=== PATIENT | female | born 1965 | race Caucasian/White ===

== ENCOUNTER 2024-02-04 08:40 | Outpatient (OUT) | payer OTHER, SELFPAY ==
--- NOTE | 2024-02-04 | XR_ITS ---
The [address] [address] Patient Name: BORA GARCÍA MRN: [id number] date: 1965 Sex: F Assigned Patient Location: LAB Current Patient Location: LAB Accession/Order Number: [id number] Exam Date: 02/04/2024 09:20 Report Date: 02/04/2024 17:38 At the request of: NON-STAFF PHYSICIAN Procedure: XR knee standing BI EXAMINATION: XR knee standing BI HISTORY: M25.561, M25.562 COMPARISON: No relevant comparison available. FINDINGS: RIGHT FINDINGS: BONES: Normal. No significant arthropathy or acute abnormality. SOFT TISSUES: Negative. No visible soft tissue swelling. OTHER: Negative. LEFT FINDINGS: BONES: Normal. No significant arthropathy or acute abnormality. SOFT TISSUES: Negative. No visible soft tissue swelling. OTHER: Negative. XR/XR knee standing BI IMPRESSION: RIGHT CONCLUSION: Normal LEFT CONCLUSION: Normal Electronically authenticated by: RIA BLACKMON Date: 02/04/2024 17:38
[2024-02-04 10:33] LABS: Microalbum Creatinine Ratio Ur 28.9 mg/g (0.0-29.9); Microalbumin Urine Random 1.8 mg/dL (<=30.0)
[2024-02-04 13:06] LABS: Alanine Aminotransferase 38 U/L (14-59); Albumin Globulin Ratio 0.8; Albumin Level 3.8 g/dL (3.4-5.0); Alkaline Phosphatase 118 U/L (46-116); Anion Gap 13.7; Aspartate Amino Transferase 20 U/L (15-37); BUN Creatinine Ratio 16.7; Bilirubin Total 0.4 mg/dL (0.2-1.0); Calcium 9.9 mg/dL (8.5-10.1); Carbon Dioxide 27.5 mmol/L (21.0-32.0); Chloride 102 mmol/L (98-107); Cholesterol 274 mg/dL (<=200); Estimated GFR (African America >60 (>=60); Estimated GFR (Non-African Ame >60 (>=60); Globulin 4.7 g/dL; Glucose 144 mg/dL (74-106); HDL Cholesterol 39 mg/dL (40-60); Potassium 4.2 mmol/L (3.5-5.1); Sodium 139 mmol/L (136-145); TSH W/ REFLEX FT4 2.016 uIU/mL (0.358-3.740); Total Protein 8.5 g/dL (6.4-8.2); Triglycerides 338 mg/dL (<=150); VLDL CHOLESTEROL 67.6 mg/dL
== END 2024-02-04 08:41 | disposition home or self-care (01) ==
LOC: LAB 08:43
DX: M25.561 Pain in right knee (principal); E11.65 Type 2 diabetes mellitus with hyperglycemia; M25.562 Pain in left knee
CPT/HCPCS: 36415; 73565; 80053; 80061; 82043; 82570; 84443

== ENCOUNTER 2024-06-04 09:45 | Outpatient (OUT) | payer OTHER, SELFPAY ==
--- OUTSIDE RECORDS SUMMARY | 2024-06-04 09:49 | XMS_ITS | CCD ---
Author Organization [facility] Care Team Providers Care Stitcher Operator Name Role Phone PHYSICIAN, DEFAULT Unavailable Unavailable PHYSICIAN, DEFAULT Unavailable Unavailable [place], EHAB A Unavailable Unavailable [place], EHAB A Unavailable Unavailable BJ MARKS Unavailable Unavailable LINDA WOOD Unavailable Unavailable Hanh Menjivar Unavailable Cyndi Haas Unavailable MISC, DR MEYER Attending Unavailable MISC, DR MEYER Consulting Unavailable MISC, DR MEYER Primary Care Unavailable MISC, DR MEYER Admitting Unavailable ZIEBER, DR EVELYN Adams Consulting Unavailable MISC, DR MEYER Admitting Unavailable MISC, DR MEYER Attending Unavailable MISC, DR MEYER Consulting Unavailable MISC, DR MEYER Primary Care Unavailable HAL REYES Admitting Unavailable AMY, HAL Attending Unavailable AMY, HAL Consulting Unavailable NOEMY ., AKHIL Admitting Unavailable NEYMAR, DR RIA Phillips Consulting Unavailable NOEMY ., AKHIL Attending Unavailable MISC, DR MEYER Primary Care Unavailable IRENE .OPAL Consulting Unavailable PRINCE Haas Attending Provider [phone] Baltazar Askew Unavailable MD Edd Day Attending Provider SATHISH Wood Primary Care Provide r Cyndi Haas Attending Unavailable Cyndi Haas Admitting Unavailable Linda Wood Primary Care Unavailab Edd Marquez Attending UnavailEdd Nice Admitting UnavailFRANCINE Arreola Attending Unavailable Allergies Allergy Classification Reported Allergen(s) Allergy Type Date of Onset Reaction(s) Facility (2 sources) raNITIdine Drug Allergy 4 [facility] (1 source) No Known Allergies; Translations: [No Known Allergies] Propensity to adverse reactions (disorder) [facility] (3 sources) raNITIdine; Translations: [ranitidine] Drug Allergy 8 [facility] (1 source) raNITIdine; Translations: [RANITIDINE HCL] Drug Allergy 2 [facility] Medications Current Medications Medication Drug Class(es) Dates Sig (Normalized) Sig (Original) [id number] 200 actuat albuterol 0.09 mg/actuat metered dose inhaler (10 sources) beta2-Adrenergic Agonist Start: 09-27-2023 take 1 puff(s) by inhalation four times daily Albuterol Sulfate Active 2 PUFF INHALATION Four times daily September 27, 2023 12:00am Start: 07-09-2023 take 2 puff(s) by in halation four times daily as needed Albuterol Sulfate HFA 108 (90 Base) MCG/ACT 2 puffs Inhalation 4 times a day prn Jun, Active Start: 07-09-2023 take 2 puff(s) by in halation four times daily as needed Albuterol Sulfate HFA 108 (90 Base) MCG/ACT 2 puffs Inhalation 4 times a day prn Jun, Active Albuterol Active aspirin 81 mg chewable tablet (9 sources) Platelet Aggregation Inhibitor, Nonsteroidal Anti-inflammatory Drug Start: 10-24-2017 take 81 mg by mouth once daily Aspirin Active 81 MG PO Daily October 24, 2017 12:00am atorvastatin 20 mg oral tablet (9 sources) HMG-CoA Reductase Inhibitor Start: 10-24-2017 take 20 mg by mouth once daily Atorvastatin Active 20 MG PO Daily October 24, 2017 12:00am carvedilol 25 mg oral tablet (9 sources) alpha-Adrenergic Sonia, beta-Adrenergic Sonia Start: 10-24-2017 take 25 mg by mouth twice daily Carvedilol Active 25 MG PO Twice daily October 24, 2017 12:00am Carvedilol Activ e dexamethasone 4 mg oral tablet (1 source) Corticosteroid Start: 11-19-2021 take 1 tablet by mouth every twenty-four hours Dexamethasone 4 MG 1 tablet Orally Once a day for 5 day(s) Oct, Active 0.5 ml dulaglutide 1.5 mg/ml auto-injector (6 sources) GLP-1 Receptor Agonist Start: 09-27-2023 Dulaglutide (Trulicity) 0.75 mg/0.5 mL pen injector Active 0.75 MG SUBCUT every week September 27, 2023 12:00am Trulicity 0.75 M G/0.5ML as directed Subcutaneous Active empagliflozin 25 mg oral tablet (8 sources) Sodium-Glucose Cotransporter 2 Inhibitor Start: 09-27-2023 take 1 tablet by mouth once daily Empagliflozin (Jardiance) 25 mg tablet Active 25 MG PO Daily September 27, 2023 12:00am Jardiance Active gabapentin 600 mg oral tablet (8 sources) Anti-epileptic Agent Start: 09-27-2023 take 600 mg by mouth three times daily Gabapentin Active 600 MG PO Three times daily September 27, 2023 12:00am Gabapentin Activ e 24 hr isosorbide mononitrate 30 mg extended release oral tablet (1 source) Nitrate Vasodilator Start: 09-27-2023 take 30 mg by mouth once daily Isosorbide Mononitrate Active 30 MG PO Daily September 27, 2023 12:00am Isosorbide Dinitrate (7 sources) Nitrate Vasodilator Isosorbide Dinitrate Active metFORMIN hydrochloride 1000 mg oral tablet (8 sources) Biguanide Start: 09-27-2023 take 1000 mg by mouth once daily Metformin Active 1000 MG PO Daily September 27, 2023 12:00am metFORMIN HCl Ac tive montelukast 10 mg oral tablet (8 sources) Leukotriene Receptor Antagonist Start: 09-27-2023 take 10 mg by mouth once daily Montelukast Active 10 MG PO Daily September 27, 2023 12:00am take 1 tablet by herbie th every twenty-four hours Singulair 10 MG 1 tablet Orally Once a day Active Singulair Active nitrofurantoin, macrocrystals 25 mg / nitrofurantoin, monohydrate 75 mg oral capsule (3 sources) Nitrofuran Antibacterial Start: 03-30-2023 take 1 capsule by mouth every twelve hours Macrobid 100 MG 1 cap(s) Orally bid for 5 day(s) Mar, Active pantoprazole 40 mg delayed release oral tablet (9 sources) Proton Pump Inhibitor Start: 10-24-2017 take 40 mg by mouth twice daily Pantoprazole Active 40 MG PO Twice daily October 24, 2017 12:00am PARoxetine hydrochloride 40 mg oral tablet (1 source) Serotonin Reuptake Inhibitor Start: 09-27-2023 take 40 mg by mouth once daily Paroxetine Hcl Active 40 MG PO Daily September 27, 2023 12:00am phenazopyridine hydrochloride 200 mg oral tablet (3 sources) Start: 03-30-2023 take 1 tablet by mouth every eight hours Pyridium 200 MG 1 tablet after meals Orally Three times a day for 2 day(s) Mar, Active microencapsulated potassium chloride 20 meq extended release oral tablet (9 sources) Start: 10-24-2017 take 20 mEq by mouth once daily Potassium Chloride Active 20 MEQ PO Daily October 24, 2017 12:00am predniSONE 20 mg oral tablet (3 sources) Start: 07-09-2023 take 1 tablet by mouth every twelve hours predniSONE 20 MG 1 tablet Orally bid for 5 day(s) Jun, Active Start: 01-03-2018 End: 09-27-2023 take 60 mg by mouth once daily at mealtime Prednisone Discontinued 60 MG PO Daily 07 02January 02, 2018 11:00pm September 27, 2023 7:07am administer with food or milk Spiriva Respimat (7 sources) Spiriva Respimat Active 60 actuat tiotropium 0.38603 mg/actuat inhalation spray (1 source) Anticholinergic Start: take 1 puff(s) by inhalation once daily Tiotropium [place] (Spiriva Respimat) 1.25 mcg/actuation Mist Active 2 PUFF INHALATION Daily September 27, 2023 12:00am valACYclovir 1000 mg oral tablet (1 source) Herpesvirus Nucleoside Analog DNA Polymerase Inhibitor, Herpes Simplex Virus Nucleoside Analog DNA Polymerase Inhibitor, Herpes Zoster Virus Nucleoside Analog DNA Polymerase Inhibitor Start: take 1 tablet by mouth every eight hours valACYclovir HCl 1 GM 1 tablet Orally tid for 7 days Jun, Active valsartan 160 mg oral tablet (8 sources) Angiotensin 2 Receptor Sonia Start: take 160 mg by mouth once daily Valsartan Active 160 MG PO Daily September 27, 2023 12:00am Valsartan Active Completed/Discontinued Medications Medication Drug Class(es) Dates Sig (Normalized) Sig (Original) azithromycin 250 mg oral tablet (2 sources) Macrolide Antimicrobial Start: 01-03-2018 End: 09-27-2023 take 2 tablets by mouth once daily, then take 1 tablet by mouth once daily Azithromycin (Zithromax) 250 mg tablet Discontinued 250 MG PO Daily January 02, 2018 11:00pm September 27, 2023 7:06am ZPAK-2 tabs day 1, the 1 tab daily for 4 days benzonatate 100 mg oral capsule (5 sources) Non-narcotic Antitussive Start: 06-16-2017 take 1 capsule by mouth three times daily Tessalon Perles 100 mg 1 capsule Orally Three times a day for 1 month May, Not-Taking dicyclomine hydrochloride 20 mg oral tablet (2 sources) Anticholinergic Start: 01-03-2018 End: 09-27-2023 take 20 mg by mouth four times daily Dicyclomine Discontinued 20 MG PO Four times daily January 02, 2018 11:00pm September 27, 2023 7:07am DULoxetine 60 mg delayed release oral capsule (5 sources) Serotonin and Norepinephrine Reuptake Inhibitor take 1 capsule by mouth every twenty-four hours DULoxetine HCl 60 MG 1 capsule Orally Once a day Not-Taking furosemide 40 mg oral tablet (7 sources) Loop Diuretic Start: 10-24-2017 End: 09-27-2023 take 40 mg by mouth once daily Furosemide Discontinued 40 MG PO Daily October 24, 2017 12:00am September 27, 2023 7:07am Ketorolac (7 sources) Nonsteroidal Anti-inflammatory Drug, Cyclooxygenase Inhibitor Start: 11-19-2021 Toradol per 15 mg Oct, 30 mg losartan potassium 25 mg oral tablet (9 sources) Angiotensin 2 Receptor Sonia Start: 10-24-2017 End: 09-27-2023 take 25 mg by mouth once daily Losartan Discontinued 25 MG PO Daily October 24, 2017 12:00am September 27, 2023 7:07am 24 hr metoprolol succinate 50 mg extended release oral tablet (7 sources) beta-Adrenergic Sonia Start: 10-24-2017 End: 01-03-2018 take 1.5 tablets by mouth once daily Metoprolol Succinate Discontinued 1.5 TAB PO Daily October 24, 2017 12:00am January 03, 2018 5:49pm Metoprolol Tartr ate 50 MG 1 1/2 tablet with food Orally Twice a day Not-Taking OLANZapine 5 mg oral tablet (2 sources) Atypical Antipsychotic Start: 01-03-2018 End: 09-27-2023 take 5 mg by mouth once daily Olanzapine Discontinued 5 MG PO Daily January 02, 2018 11:00pm September 27, 2023 7:07am Triamcinolone (14 sources) Corticosteroid Start: 07-13-2017 Kenalog -40 mg Jun, 40 mg Problems Active Problems Problem Classification Problem Date Documented Da te Episodic/Chronic Abdominal hernia (7 sources) Hiatal hernia; Translations: [Diaphragmatic hernia without obstruction or gangrene] Episodic Abdominal pain (6 sources) Unspecified abdominal pain; Translations: [Right lower quadrant pain] Onset: 2022 Episodic Chronic obstructive pulmonary disease and bronchiectasis (4 sources) Acute exacerbation of chronic obstructive airways disease; Translations: [Chronic bronchitis] 01-03-2018 Chronic Chronic obstructive pulmonary disease and bronchiectasis (1 source) Bronchitis, not specified as acute or chronic Episodic Conditions associated with dizziness or vertigo (1 source) Dizziness and giddiness; Translations: [DIZZINESS AND GIDDINESS] Onset: 11-15-2022 Episodic Congestive heart failure; nonhypertensive (4 sources) Heart failure, unspecified; Translations: [HEART FAILURE, UNSPECIFIED] Onset: 04-08-2017 Chronic Coronary atherosclerosis and other heart disease (1 source) Atherosclerotic heart disease of [place] coronary artery without angina pectoris; Translations: [ATHSCL HEART DISEASE OF [place] CORONARY ARTERY W/O ANG PCTRS] Onset: 04-08-2017 Chronic Diabetes mellitus with complications (4 sources) Type 2 diabetes mellitus with hyperglycemia; Translations: [TYPE 2 DM W/HYPERGLYCEMIA] Onset: 01-08-2023 Chronic Diabetes mellitus without complication (7 sources) Glycosuria; Translations: [Glycosuria] Episodic Esophageal disorders (9 sources) Gastro-esophageal reflux disease without esophagitis; Translations: [Gastroesophageal reflux disease] Onset: 04-08-2017 Chronic Essential hypertension (6 sources) Essential (primary) hypertension; Translations: [ESSENTIAL PRIMARY HYPERTENSION] Onset: 04-16-2022 Chronic Gastroduodenal ulcer (except hemorrhage) (7 sources) Gastric ulcer without hemorrhage, without perforation AND without obstruction; Translations: [Gastric ulcer, unspecified as acute or chronic, without hemorrhage or perforation] Chronic Genitourinary symptoms and ill-defined conditions (6 sources) Frequency of micturition; Translations: [Hematuria, unspecified] Episodic Headache; including migraine (4 sources) Headache; including migraine; Translations: [HEADACHE UNSPECIFIED] Onset: 11-10-2022 Malaise and fatigue (1 source) Other fatigue; Translations: [OTHER FATIGUE] Onset: 11-15-2022 Episodic Nausea and vomiting (14 sources) Vomiting; Translations: [Vomiting, unspecified] Episodic Other circulatory disease (7 sources) Elevated blood pressure; Translations: [Elevated blood-pressure reading, without diagnosis of hypertension] Episodic Other connective tissue disease (7 sources) Spasm; Translations: [Other muscle spasm] Episodic Other disorders of stomach and duodenum (7 sources) Indigestion; Translations: [Functional dyspepsia] Episodic Other gastrointestinal disorders (7 sources) Heartburn; Translations: [Heartburn] Episodic Other gastrointestinal disorders (1 source) Dysphagia; Translations: [Dysphagia, unspecified] 09-27-2023 Episodic Other gastrointestinal disorders (2 sources) Dysphagia, unspecified; Translations: [Dysphagia, unspecified] Onset: 09-27-2023 09-27-2023 Episodic Other lower respiratory disease (7 sources) Cough; Translations: [Coughing] Episodic Other lower respiratory disease (1 source) Other specified respiratory disorders Episodic Other nervous system disorders (7 sources) Carpal tunnel syndrome; Translations: [Carpal tunnel syndrome, bilateral upper limbs] Chronic Other nervous system disorders (7 sources) Mononeuritis multiplex; 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 Other nervous system disorders (7 sources) Paresthesia; Translations: [Paresthesia of skin] Episodic Other nutritional; endocrine; and metabolic disorders (7 sources) Body mass index 40+ - severely obese; Translations: [Body mass index (BMI) 40.0-44.9, adult] Chronic Other upper respiratory infections (1 source) Acute pharyngitis, unspecified Episodic Residual codes; unclassified (7 sources) Sleep apnea; Translations: [Sleep apnea, unspecified] Chronic Substance-related disorders (1 source) Nicotine dependence, cigarettes, uncomplicated; Translations: [NICOTINE DEPENDENCE, CIGARETTES, UNCOMPLICATED] Onset: 04-08-2017 Chronic Unclassified (2 sources) Unknown / UNK(Unknown) Onset: 04-08-2017 Urinary tract infections (3 sources) Urinary tract infection, site not specified Episodic Urinary tract infections (1 source) Urinary tract infections; Translations: [Urinary tract infection, site not specified] Onset: 03-30-2023 Viral infection (1 source) Zoster without complications Episodic Past or Other Problems Problem Classification Problem Date Documented Da te Episodic/Chronic Other aftercare (2 sources) assisted (current) use of aspirin; Translations: [GROUP HOME (CURRENT) USE OF ASPIRIN] Onset: 04-08-2017 Episodic Other aftercare (1 source) assisted (current) use of oral hypoglycemic drugs; Translations: [PATROL LADY USE ORAL HYPOGLYCEMIC DX] Onset: 06-25-2022 Episodic Other aftercare (1 source) Other vermin exterminator (current) drug therapy; Translations: [OTH PATROL LADY CURRENT DRUG THERAPY] Onset: 06-25-2022 Episodic Other lower respiratory disease (1 source) Shortness of breath; Translations: [SHORTNESS OF BREATH] Onset: 04-08-2017 Episodic Other non-traumatic joint disorders (1 source) Pain in right knee Onset: 11-19-2021 Resolved: 11-19-2021 Episodic Results Test Name Value Interpretation Reference Range Facility Telemedicineon 03-27-2024 Telemedicine [id number] Christopher Castaneda 1965 F Date Provider Department Center 03/27/2024 Mojgan-FRANCINE PINEDA BRENDA Storm Family History Problem Relation Age of Onset Coronary artery disease Father Diabetes Brother Family Status - Relation Status Age at Father Brother Level of Service:03149 CO OFFICE/OUTPATIENT ESTABLISHED MOD MDM 30 MIN Normal [facility] Glucose Glucometer (BldC) [M ass/Vol]Ordered By: Edd Day on 09-27-2023 Glucose [Mass/Vol] 179 mg/dL [facility] Comment on above: Random Glucose Refer ence Range is dependent on time and content of last meal. Glucose of more than 200 mg/dL in a nonstressed, ambulatory subject supports the diagnosis of Diabetes Mellitus. Glucose Poct Glucometerson 0 09-27-2023 Commemt1 Glu2: Cleaned Meter Normal [facility] Comment on above: Result Comment: PERF ORMED BY: [facility] [address] [place] [address] PATHOLOGIST DRYING SUPERVISOR KATHY FELDMAN M.D. Performed By: #### G LULS #### Point of Care testing , Glucose [Mass/Vol] 179 mg/dL Normal [facility] Comment on above: Result Comment: [facility] Glucose Reference Range is dependent on time and content of last meal. Glucose of more than 200 mg/dL in a nonstressed, ambulatory subject supports the diagnosis of Diabetes Mellitus. Performed By: #### G LULS #### Point of Care testing , HCG ( test) Geri henderson Ql (U)Ordered By: Edd Day on 09-27-2023 HCG ( test) Ql (U) Negative [facility] HCG,Urineon 09-27-2023 Beta HCG ( test) Ql (U) Negative Normal [facility] Comment on above: Result Comment: PERF ORMED BY: [place] [address] PATHOLOGIST DRYING SUPERVISOR KATHY FELDMAN M.D. Performed By: #### U HCG #### [address] [place] 09-27-2023 L -------- -------- Specimen: [id number] Received: 09/27/23 Status: CRISELDA Angel Num: [id number] Spec Type: Surgical Subm Dr: Edd Day MD Tissues: A STOMACH FOR HP (ANTRAL HP) Procedures: HE/2, Gross/Micro L4, H PYLORI, IHC First AB -------- Age/ Patient Sex Location Account Attending Physician -------- RaquelJon iglesiasleah Garcia 58/F [id number] Edd Day MD -------- SPEC NUM: [id number] RECD: 09/27/23 STATUS: CRISELDA ANGEL NUM: [id number] AGUSTIN: 09/27/[address] [facility] [address]: Edd Day MD ENTERED: 09/27/[address] [facility] [address]: NATALIIA TYPE: Surgical DEPT: S ORDERED: HE/2, Gross/Micro L4, H PYLORI, IHC First AB ORDERED: HE/2, Gross/Micro L4, H PYLORI, IHC First AB Pathological Diagnosis Stomach, Biopsy: Chronic Inactive Gastritis. - H. Pylori Immunostain Is Negative For H. Pylori Organisms. Clinical Information GERD, abdomen pain, rule out H. pylori Gross Description Received in formalin labeled with the patient's name, date of and antral biopsy is one de luna tissue measuring 0.3 cm. Entirely submitted in one cassette labeled A1. Microscopic Description Two H E slides reviewed. The microscopic examination confirms the diagnosis. CPT Codes 55314 -------- -------- Specimen: [id number] Received: 09/27/23 Status: CRISELDA Angel Num: [id number] Spec Type: Surgical Subm Dr: Edd Day MD Tissues: A STOMACH FOR HP (ANTRAL HP) Procedures: HE/2, Gross/Micro L4, H PYLORI, IHC First AB -------- Patient: Bora Castaneda [id number] (Continued) -------- Signed (signature on file) Jessica Snyder MD 09/29/232240 Normal [facility] No Panel InformationOrdered By: Edd Day on 09-27-2023 Bedside Glucose Comment Glu2: cleaned meter [facility] COVID/FLU/RSV RT-PCRon 07-09 SARS-CoV-2 (COVID-19) RNA MECCA+probe Ql (Unsp spec) Negative Ifbyphone Other COVID/FLU/RSV RT-PCR Negative Ifbyphone Other Quick Strepon 07-09-2023 S. pyogenes Org specific cx Ql (Throat) Negative Ifbyphone Other Quick Strep Ifbyphone Other Urinalysis - AUTOMATEDon Appearance (U) cloudy [employer] Other Bilirubin Ql (U) Negative [employer] Other Color (U) yellow Ifby[employer] Other Glucose Ql (U) >=1000 [employer] Other Hemoglobin Ql (U) small [employer] Other Ketones Ql (U) Negative [employer] Other Leukocyte esterase Test strip Ql (U) trace [employer] Other Nitrite Ql (U) Negative [employer] Other pH (U) 5.5 [pH] [employer] Other Protein Ql (U) Negative [employer] Other Specific gravity (U) [Rel density] 1.010 [employer] Other Urobilinogen (U) [Mass/Vol] 0.2 mg/dL [employer] Other Urinalysis - AUTOMATED Ifbyphone Other Urine Cultureon 03-30-2023 Urine Culture >100,000 Ifbyphone Other Urine Culture <16 Susceptible [employer] Other Urine Culture <8/4 Susceptible [employer] Other Urine Culture <8 Susceptible [employer] Other Urine Culture <4 Susceptible [employer] Other Urine Culture <2 Susceptible [employer] Other Urine Culture <1 Susceptible [employer] Other Urine Culture <0.25 Susceptible [employer] Other Urine Culture <0.5 Susceptible [employer] Other Urine Culture <32 Susceptible [employer]rent[employer] Other Urine Culture <0.5/9.5 Susceptible Ex[employer]renti Other Bacteria identified Cx Nom (U) ORGANISM: Escherichia coli (O:ESCCOL) [place] Count >100,000 Aerobic IVANNA Charge ([id number]) SUSCEPTIBILITY ORGANISM: O:ESCCOL ANTIBIOTIC INTERPRETATION IVANNA Amikacin S <16 Amoxacillin/K Clavulanate S <8 Ampicillin S <8 Ampicillin/Sulbactam S <4 Aztreonam S <4 Cefazolin S <2 Cefepime S <2 Ceftazidime S <1 Ceftazidime/Avibactam S <4 Ceftolozane/Tazobactam S <2 Ceftriaxone S <1 Cefuroxime S <4 Ciprofloxacin S <0.25 Ertapenem S <0.5 Gentamicin S <2 Levofloxacin S <0.5 Meropenem S <1 Meropenem/Vaborbactam S <2 Nitrofurantoin S <32 Piperacillin/Tazobactam S <8 Tetracycline S <4 Tigecycline S <2 Tobramycin S <2 Trimethoprim/Sulfamethoxazol e S <0.5 S = SUSCEPTIBLE I = INTERMEDIATE R = RESISTANT BLANK = DATA NOT AVAILABLE, OR DRUG NOT ADVISABLE OR TESTED R* = RESISTANCE DUE TO EXTENDED SPECTRUM BETA-LACTAMASES ESBL = EXTENDED SPECTRUM BETA-LACTAMASE TFG = THYMIDINE-DEPENDENT STRAIN BETH = BETA-LACTAMASE POSITIVE IB = INDUCIBLE BETA-LACTAMASE. APPEARS IN PLACE OF 'S' WITH SPECIES KNOWN TO POSSESS INDUCIBLE BETA-LACTAMASES. POTENTIALLY THEY MAY BECOME RESISTANT TO ALL B-LACTAM DRUGS. PERFORMED BY: [place] [address] PATHOLOGIST DRYING SUPERVISOR KATHY FELDMAN M.D. Normal [facility] Comment on above: Performed By: #### C UU #### [address] LIPID PROFILEon 01-08-2023 CHOL-HDL RATIO NORM SEE BELOW Normal [facility] Comment on above: Result Comment: 3.3 - 4.4 LOW RISK 4.4 - 7.1 AVERAGE RISK 7.1 - 11.0 MODERATE RISK >11.0 HIGH RISK Performed By: #### T SHRFT4, CMP, LIPID #### [facility] [address] [address] [address] Jacquelyn Robb Cholesterol [Mass/Vol] 253 mg/dL Critically high <=200 [facility] Comment on above: Performed By: #### T SHRFT4, CMP, LIPID #### [facility] [address] [address] [address] Jacquelyn Robb Cholesterol in HDL [Mass/Vol] 33 mg/dL Critically low 40-60 [facility] Comment on above: Performed By: #### T SHRFT4, CMP, LIPID #### [facility] [address] [address] [address] Jacquelyn Robb Cholesterol in LDL [Mass/Vol] 152.2 mg/dL Normal [facility] Comment on above: Performed By: #### T SHRFT4, CMP, LIPID #### [facility] [id number] Jacquelyn Robb Cholesterol.total/C holesterol in HDL [Mass ratio] 7.7 {ratio} Normal [facility] Comment on above: Performed By: #### T SHRFT4, CMP, LIPID #### [facility] [id number] Jacquelyn Robb HDL NORMAL > or = 60 mg/dl - LO W CARDIOVASCULAR RISK <40 mg/dl - HIGH CARDIOVASCULAR RISK Normal [facility] Comment on above: Performed By: #### T SHRFT4, CMP, LIPID #### [facility] [id number] Jacquelyn Robb LDL CALC NORMAL SEE BELOW Normal [facility] Comment on above: Result Comment: <100 mg/dl OPTIMAL 100 - 129 mg/dl NEAR OR ABOVE OPTIMAL 130 - 159 mg/dl BORDERLINE HIGH 160 - 189 mg/dl HIGH >190 mg/dl VERY HIGH Performed By: #### T SHRFT4, CMP, LIPID #### [facility] [address] [address] [address] Jacquelyn Robb Triglyceride [Mass/Vol] 339 mg/dL Critically high <=150 [facility] Comment on above: Performed By: #### T SHRFT4, CMP, LIPID #### [facility] [address] [address] [address] Jacquelyn Robb VLDL CALC 67.8 mg/dL Normal [facility] Comment on above: Performed By: #### T JESSICA4, CMP, LIPID #### [facility] [address] [address] [address] Jacquelyn Robb MICROALB CREAT RATIO RANDOMo n 01-08-2023 mALB <1.3 Normal <=30.0 [facility] Comment on above: Performed By: #### M CRR ####[facility] [address] [place], [place] [address]OdDr. Jacquelyn Robb MALB CR RATIO 34.9 mg/g Critically high 0.0-29.9 [facility] Comment on above: Performed By: #### M CRR ####[facility] [id number] [place], [place] [address]DpYajaira Robb MALB CR RATIO RANGE SEE BELOW Normal [facility] Comment on above: Result Comment: NO M ICROALBUMINURIA 0-29 MG/G CLINICAL MICROALBUMINURIA 30-300 MG/G MACROALBUMINURIA >300 MG/G Performed By: #### M CRR ####[facility] [id number] [place], [place] [address]ZsDr. Jacquelyn Robb URINE CREAT 37.21 mg/dL Normal 20.00-300. 00 [facility] Comment on above: Performed By: #### M CRR ####[facility] [id number] [place] [id number]. Jacquelyn Robb PROF 14(COMP METB)on 023 Albumin [Mass/Vol] 3.4 g/dL Normal 3.4-5.0 [facility] Comment on above: Performed By: #### T SHRFT4, CMP, LIPID #### [facility] [address] [address] [address] Jacquelyn Robb Albumin/Globulin [Mass ratio] 0.7 {ratio} Normal [facility] Comment on above: Performed By: #### T SHRFT4, CMP, LIPID #### [facility] [address] [address] [address] Jacquelyn Robb ALP [Catalytic activity/Vol] 107 U/L Normal 46-116 [facility] Comment on above: Performed By: #### T SHRFT4, CMP, LIPID #### [facility] [address] [address] [address] Jacquelyn Robb ALT [Catalytic activity/Vol] 32 U/L Normal 14-59 [facility] Comment on above: Performed By: #### T SHRFT4, CMP, LIPID #### [facility] [address] [address] [address] Jacquelyn Robb Anion gap [Moles/Vol] 14.2 mmol/L Normal [facility] Comment on above: Performed By: #### T SHRFT4, CMP, LIPID #### [facility] [address] [address] [address] Jacquelyn Robb AST [Catalytic activity/Vol] 15 U/L Normal 15-37 [facility] Comment on above: Performed By: #### T SHRFT4, CMP, LIPID #### [facility] [address] [address] [address] Jacquelyn Robb Bilirubin [Mass/Vol] 0.3 mg/dL Normal 0.2-1.0 [facility] Comment on above: Performed By: #### T SHRFT4, CMP, LIPID #### [facility] [address] [address] [address] Jacquelyn Robb Calcium [Mass/Vol] 9.3 mg/dL Normal 8.5-10.1 [facility] Comment on above: Performed By: #### T SHRFT4, CMP, LIPID #### [facility] [address] [address] [address] Jacquelyn Robb Chloride [Moles/Vol] 103 mmol/L Normal 98-107 [facility] Comment on above: Performed By: #### T SHRFT4, CMP, LIPID #### [facility] [address] [place] [address] Dr. Jacquelyn Robb CO2 [Moles/Vol] 26.7 mmol/L Normal 21.0-32.0 [facility] Comment on above: Performed By: #### T SHRFT4, CMP, LIPID #### [facility] [address] [place] [address] Dr. Jacquelyn Robb Creatinine [Mass/Vol] 0.87 mg/dL Normal 0.55-1.02 [facility] Comment on above: Performed By: #### T SHRFT4, CMP, LIPID #### [facility] [address] [place] [address] Dr. Jacquelyn Robb EGFR-AF SYRIAN >60 Normal >=60 [facility] Comment on above: Performed By: #### T SHRFT4, CMP, LIPID #### [facility] [address] [place] [address] Dr. Jacquelyn Robb EGFR-NON AF SYRIAN >60 Normal >=60 [facility] Comment on above: Performed By: #### T SHRFT4, CMP, LIPID #### [facility] [address] [place] [address] Dr. Jacquelyn Robb Globulin (S) [Mass/Vol] 4.8 g/dL Normal [facility] Comment on above: Performed By: #### T SHRFT4, CMP, LIPID #### [facility] [address] [place] [address] Dr. Jacquelyn Robb Glucose [Mass/Vol] 251 mg/dL Critically high 74-106 [facility] Comment on above: Performed By: #### T CESARIOFT4, CMP, LIPID #### [facility] [address] [address] [address] Jacquelyn Robb Potassium [Moles/Vol] 3.9 mmol/L Normal 3.5-5.1 [facility] Comment on above: Performed By: #### T JESSICA4, CMP, LIPID #### [facility] [address] [place] [address] Dr. Jacquelyn Robb Protein [Mass/Vol] 8.2 g/dL Normal 6.4-8.2 [facility] Comment on above: Performed By: #### T JESSICA4, CMP, LIPID #### [facility] [address] [place] [address] Dr. Jacquelyn Robb Sodium [Moles/Vol] 140 mmol/L Normal 136-145 [facility] Comment on above: Performed By: #### T JESSICA4, CMP, LIPID #### [facility] [address] [place] [address] Dr. Jacquelyn Robb Urea nitrogen [Mass/Vol] 12.0 mg/dL Normal 7.0-18.0 [facility] Comment on above: Performed By: #### T JESSICA4, CMP, LIPID #### [facility] [address] [place] [address] Dr. Jacquelyn Robb Urea nitrogen/Creatinine [Mass ratio] 13.8 mg/mg Normal [facility] Comment on above: Performed By: #### T SHRFT4, CMP, LIPID #### [facility] [address] [place] [address] Dr. Jacquelyn Robb TSH W/ REFLEX TO FT4on 01-08 TSH 1.629 uIU/mL Normal 0.358-3.74 0 [facility] Comment on above: Performed By: #### T CESARIOFT4, CMP, LIPID #### [facility] [address] [place] [address] Dr. Jacquelyn Robb MRI BRAIN WO CONon 3 MRI BRAIN WO CON EXAMINATION: MRI BRA IN WO CON, 11/10/2022 9:22 AM EST HISTORY: Headache , chronic; dizziness, fatigue COMPARISON: None. TECHNIQUE: MRI of the brain was performed without IV contrast. FINDINGS: CEREBRUM: No edema, hemorrhage, mass, acute infarction, or inappropriate atrophy. CEREBELLUM: No edema, hemorrhage, mass, acute infarction, or inappropriate atrophy. BRAINSTEM: No edema, hemorrhage, mass, acute infarction, or inappropriate atrophy. CSF SPACES: Ventricles, cisterns, and sulci are appropriate for age. No hydrocephalus, subarachnoid hemorrhage, or mass. SKULL: No mass or other significant visible lesion. SINUSES: Limited views demonstrate no significant mucosal thickening or fluid. ORBITS: Limited views are unremarkable. OTHER: Negative. IMPRESSION: 1. No abnormal or suspicious findings to account for patient's symptoms. Electronically authenticated by: EVELYN PACHECO Date: 2022-11-10 11:18 Normal [facility] CBC AUTO DIFFon 2022 BASO # 0.1 103/ul Normal 0.0-0.1 [facility] Comment on above: Performed By: #### C BC #### [facility] [address] [place] [address] Dr. Jacquelyn Robb Basophils/100 WBC (Bld) 0.4 % Normal 0.2-2.0 [facility] Comment on above: Performed By: #### C BC #### [facility] [address] [place] [address] Dr. Jacquelyn Robb EO # 0.3 103/ul Normal 0.0-0.7 [facility] Comment on above: Performed By: #### C BC #### [facility] [address] [place] [address] Dr. Jacquelyn Robb Eosinophils/100 WBC (Bld) 2.8 % Normal 0.9-7.0 [facility] Comment on above: Performed By: #### C BC #### [facility] [address] [place] [address] Dr. Jacquelyn Robb Erythrocyte distribution width (RBC) [Ratio] 16.7 % Critically high 11.0-15.0 [facility] Comment on above: Performed By: #### C BC #### [facility] [address] [place] [address] Dr. Jacquelyn Robb Hematocrit (Bld) [Volume fraction] 44.0 % Normal 36.0-48.0 [facility] Comment on above: Performed By: #### C BC #### [facility] [address] [place] [address] Dr. Jacquelyn Robb Hemoglobin (Bld) [Mass/Vol] 13.7 g/dL Normal 12.0-16.0 [facility] Comment on above: Performed By: #### C BC #### [facility] [address] [place] [address] Dr. Jacquelyn Robb IG # 0.04 10e3/ul Critically high 0.00-0.03 [facility] Comment on above: Performed By: #### C BC #### [facility] [address] [place] [address] Dr. Jacquelyn Robb IG % 0.3 % Normal 0.0-0.5 [facility] Comment on above: Performed By: #### C BC #### [facility] [address] [place] [address] Dr. Jacquelyn Robb LYMPH # 3.3 103/ul Normal 1.2-3.8 [facility] Comment on above: Performed By: #### C BC #### [facility] [address] [place] [address] Dr. Jacquelyn Robb Lymphocytes/100 WBC (Bld) 28.4 % Normal 20.5-60.0 [facility] Comment on above: Performed By: #### C BC #### [facility] [address] [place] [address] Dr. Jacquelyn Robb MANUAL DIFF REQ NO Normal [facility] Comment on above: Performed By: #### C BC #### [facility] [address] [place] [address] Dr. Jacquelyn Robb MCH (RBC) [Entitic mass] 25.8 pg Critically low 26.7-34.0 [facility] Comment on above: Performed By: #### C BC #### [facility] [address] [place] [address] Dr. Jacquelyn Robb MCHC (RBC) [Mass/Vol] 31.1 g/dL Normal 29.9-35.2 [facility] Comment on above: Performed By: #### C BC #### [facility] [address] [address] [address] Jacquelyn Robb MCV (RBC) [Entitic vol] 83.0 fL Normal 81.0-99.0 [facility] Comment on above: Performed By: #### C BC #### [facility] [address] [address] [address] Jacquelyn Robb MONO # 0.8 103/ul Normal 0.3-0.8 [facility] Comment on above: Performed By: #### C BC #### [facility] [address] [place] [address] Dr. Jacquelyn Robb Monocytes/100 WBC (Bld) 6.9 % Normal 1.7-12.0 [facility] Comment on above: Performed By: #### C BC #### [facility] [address] [place] [address] Dr. Jacquelyn Robb NEUT # 7.2 103/ul Critically high 1.4-6.5 [facility] Comment on above: Performed By: #### C BC #### [facility] [address] [place] [address] Dr. Jacquelyn Robb Neutrophils/100 WBC (Bld) 61.2 % Normal 43.0-75.0 [facility] Comment on above: Performed By: #### C BC #### [facility] [address] [place] [address] Dr. Jacquelyn Robb Platelet mean volume (Bld) [Entitic vol] 8.8 fL Critically low 9.5-13.5 [facility] Comment on above: Performed By: #### C BC #### [facility] [address] [place] [address] Dr. Jacquelyn Robb PLT 366 103/ul Normal 150-450 [facility] Comment on above: Performed By: #### C BC #### [facility] [address] [address] [address] Jacquelyn Robb RBC 5.30 106/ul Normal 4.20-5.40 [facility] Comment on above: Performed By: #### C BC #### [facility] [address] [place] [address] Dr. Jacquelyn Robb WBC 11.7 103/ul Critically high 4.0-11.0 [facility] Comment on above: Performed By: #### C BC #### [facility] [address] [address] [address] ABD/PELVIS WO CONon 06-23 CT ABD/PELVIS WO CON EXAMINATION: CT ABD/PELVIS WO CON, 2022 1:00 PM EDT HISTORY: CALCULUS OF KIDNEY COMPARISON: None. TECHNIQUE: CT scan of the abdomen and pelvis was performed without IV contrast. CT dose reduction technique was used, including Automated Exposure Control. FINDINGS: LUNG BASES: No visible pulmonary or pleural disease. LIVER: Diffuse hypoattenuation the liver, hepatic steatosis BILIARY: Surgical clips from cholecystectomy PANCREAS: No lesion, fluid collection, ductal dilatation, or atrophy. SPLEEN: No enlargement or focal lesion. ADRENALS: No mass or enlargement. KIDNEYS: Nonobstructing punctate calcifications. No hydronephrosis BOWEL/MESENTERY: Nonobstructive bowel gas pattern. Normal appendix. AORTA/VASCULAR: No aneurysm or dissection. RETROPERITONEUM: No mass or adenopathy. LYMPH NODES: No adenopathy. URINARY BLADDER: No visible focal wall thickening, lesion, or calculus. PELVIC ORGANS: 2.7 cm left adnexal cyst ABDOMINAL WALL: No mass or hernia. BONES: No bony lesion or fracture. OTHER: Negative. IMPRESSION: No obstructive uropathy 2.7 cm left adnexal cyst Electronically authenticated by: RIA BLACKMON Date: 2022 14:08 Normal [facility] ER URINE PROFILEon 2 Clarity (U) CLEAR Normal CLEAR [facility] Comment on above: Performed By: #### FUAD AHUJA #### [facility] [address] [place] [address] Dr. Jacquelyn Robb Color (U) LT. YELLOW Normal YELLOW [facility] Comment on above: Performed By: #### E FUAD BURDEN #### [facility] [address] [place] [address] Dr. Jacquelyn COOL A micrscopic examina tion will be performed if indicated. Normal [facility] Comment on above: Performed By: #### Abad BURDEN UMICRO #### [facility] [address] [place] [address] Dr. Jacquelyn Robb Glucose Ql (U) 1000 mg/dl Abnormal NEGATIVE [facility] Comment on above: Performed By: #### Abad BURDEN UMICRO #### [facility] [address] [place] [address] Dr. Jacquelyn Robb Hemoglobin Ql (U) TRACE-LYSED Abnormal NEGATIVE [facility] Comment on above: Performed By: #### Abad BURDEN UMLAWRENCERO #### [facility] [address] [place] [address] Dr. Jacquelyn Robb LEUKOCYTES Negative Normal NEGATIVE [facility] Comment on above: Performed By: #### ALDO AHUJARO #### [facility] [address] [place] [address] Dr. Jacquelyn Robb pH (U) 6.0 [pH] Normal 5-9 [facility] Comment on above: Performed By: #### ALDO AHUJARO #### [facility] [address] [place] [address] Dr. Jacquelyn Robb SPEC GRAVITY 1.015 Normal 1.005-<=1. 025 [facility] Comment on above: Performed By: #### ALDO AHUJARO #### [facility] [address] [place] [address] Dr. Jacquelyn Robb UA PROTEIN Negative Normal NEGATIVE/ TRACE [facility] Comment on above: Performed By: #### ALDO AHUJARO #### [facility] [address] [place] [address] Dr. Jacquelyn Robb UR MICRO IND INDICATED Normal [facility] Comment on above: Performed By: #### ALDO AHUJARO #### [facility] [address] [place] [address] Dr. Jacquelyn Robb Urobilinogen Qn (U) 0.2 {Matthew'U}/dL Normal 0.2 - 1. 0 [facility] Comment on above: Performed By: #### E FUAD BURDEN #### [facility] [address] [place] [address] Dr. Jacquelyn Robb Glucose - FINGER STICKon Glucose [Mass/Vol] 171 mg/dL Ifbyphone Other PROF 14(COMP METB)on 022 Albumin [Mass/Vol] 3.4 g/dL Normal 3.4-5.0 [facility] Comment on above: Performed By: #### C MP #### [facility] [address] [place] [address] Dr. Jacquelyn Robb Albumin/Globulin [Mass ratio] 0.8 {ratio} Normal [facility] Comment on above: Performed By: #### C MP #### [facility] [address] [address] [address] Jacquelyn Robb ALP [Catalytic activity/Vol] 95 U/L Normal 46-116 [facility] Comment on above: Performed By: #### C MP #### [facility] [address] [place] [address] Dr. Jacquelyn Robb ALT [Catalytic activity/Vol] 27 U/L Normal 14-59 [facility] Comment on above: Performed By: #### C MP #### [facility] [address] [address] [address] Jacquelyn Robb Anion gap [Moles/Vol] 11.4 mmol/L Normal [facility] Comment on above: Performed By: #### C MP #### [facility] [address] [address] [address] Jacquelyn Robb AST [Catalytic activity/Vol] 17 U/L Normal 15-37 [facility] Comment on above: Performed By: #### C MP #### [facility] [address] [place] [address] Dr. Jacquelyn Robb Bilirubin [Mass/Vol] 0.3 mg/dL Normal 0.2-1.0 [facility] Comment on above: Performed By: #### C MP #### [facility] [address] [address] [address] Jacquelyn Robb Calcium [Mass/Vol] 9.0 mg/dL Normal 8.5-10.1 [facility] Comment on above: Performed By: #### C MP #### [facility] [address] [address] [address] Jacquelyn Robb Chloride [Moles/Vol] 103 mmol/L Normal 98-107 [facility] Comment on above: Performed By: #### C MP #### [facility] [address] [address] [address] Jacquelyn Robb CO2 [Moles/Vol] 29.5 mmol/L Normal 21.0-32.0 [facility] Comment on above: Performed By: #### C MP #### [facility] [address] [address] [address] Jacquelyn Robb Creatinine [Mass/Vol] 0.67 mg/dL Normal 0.55-1.02 [facility] Comment on above: Performed By: #### C MP #### [facility] [address] [address] [address] Jacquelyn Robb EGFR-AF SYRIAN >60 Normal >=60 [facility] Comment on above: Performed By: #### C MP #### [facility] [address] [address] [address] Jacquelyn Robb EGFR-NON AF SYRIAN >60 Normal >=60 [facility] Comment on above: Performed By: #### C MP #### [facility] [address] [address] [address] Jacquelyn Robb Globulin (S) [Mass/Vol] 4.2 g/dL Normal [facility] Comment on above: Performed By: #### C MP #### [facility] [address] [address] [address] Jacquelyn Robb Glucose [Mass/Vol] 149 mg/dL Critically high 74-106 [facility] Comment on above: Performed By: #### C MP #### [facility] [address] [address] [address] Jacquelyn Robb Potassium [Moles/Vol] 3.9 mmol/L Normal 3.5-5.1 [facility] Comment on above: Performed By: #### C MP #### [facility] [address] [place] [address] Dr. Jacquelyn Robb Protein [Mass/Vol] 7.6 g/dL Normal 6.4-8.2 [facility] Comment on above: Performed By: #### C MP #### [facility] [address] [place] [address] Dr. Jacquelyn Robb Sodium [Moles/Vol] 140 mmol/L Normal 136-145 [facility] Comment on above: Performed By: #### C MP #### [facility] [address] [place] [address] Dr. Jacquelyn Robb Urea nitrogen [Mass/Vol] 10.0 mg/dL Normal 7.0-18.0 [facility] Comment on above: Performed By: #### C MP #### [facility] [address] [place] [address] Dr. Jacquelyn Robb Urea nitrogen/Creatinine [Mass ratio] 14.9 mg/mg Normal [facility] Comment on above: Performed By: #### C MP #### [facility] [address] [place] [address] Dr. Jacquelyn Robb URINE MICROSCOPIC ONLYon BACTERIA NONE SEEN Normal NONE SEEN [facility] Comment on above: Performed By: #### FUAD AHUJA #### [facility] [address] [place] [address] Dr. Jacquelyn Robb Bacteria identified Cx Nom (U) NOT INDICATED Normal [facility] Comment on above: Performed By: #### ALDO AHUJARO #### [facility] [address] [place] [address] Dr. Jacquelyn Robb CAST NONE SEEN Normal NONE SEEN [facility] Comment on above: Performed By: #### ALDO AHUJARO #### [facility] [address] [place] [address] Dr. Jacquelyn Robb Crystals LM Nom (Urine sed) NONE SEEN Normal NONE SEEN [facility] Comment on above: Performed By: #### E RUR, UMICRO #### [facility] [address] [place] [address] Dr. Jacquelyn Robb Epithelial cells LM Ql (Urine sed) FEW Abnormal NONE SEEN /RARE [facility] Comment on above: Performed By: #### E RUR, UMICRO #### [facility] [address] [place] [address] Dr. Jacquelyn Robb MUCOUS NONE SEEN Normal NONE SEEN [facility] Comment on above: Performed By: #### E RUR, UMICRO #### [facility] [address] [place] [address] Dr. Jacquelyn Robb RBC 0-2 Normal 0-2 [facility] Comment on above: Performed By: #### E RUR, UMICRO #### [facility] [address] [place] [address] Dr. Jacquelyn Robb WBC NONE SEEN Normal NONE SEEN [facility] Comment on above: Performed By: #### E RUR, UMICRO #### [facility] [facility] [address] [place] [address] Dr. Jacquelyn Robb Urinalysis - AUTOMATEDon Bilirubin Ql (U) Negative Normal NEGATIVE [employer] Other Comment on above: Performed By: #### Abad BUSTILLOR, UMICRO #### [facility] [address] [place] [address] Dr. Jacquelyn Robb Ketones Ql (U) Negative Normal NEGATIVE [employer] Other Comment on above: Performed By: #### E RUR, UMICRO #### [facility] [address] [place] [address] Dr. Jacquelyn Robb Nitrite Ql (U) Negative Normal NEGATIVE [employer] Other Comment on above: Performed By: #### E RUR, UMICRO #### [facility] [address] [place] [address] Dr. Jacquelyn Robb Appearance (U) yellow [employer] Other Color (U) clear [employer] Other Glucose Ql (U) 500 [employer] Other Hemoglobin Ql (U) Negative [employer] Other Leukocyte esterase Test strip Ql (U) Negative [employer] Other pH (U) 5.5 [pH] [employer] Other Protein Ql (U) Negative [employer] Other Specific gravity (U) [Rel density] 1.015 [employer] Other Urobilinogen (U) [Mass/Vol] 0.20 mg/dL [employer] Other Urinalysis - AUTOMATED [employer] Other PROF CHEM 8 (BAS METB)on Anion gap [Moles/Vol] 13.0 mmol/L Normal [facility] Comment on above: Performed By: #### B MP #### [facility] [address] [place] [address] Dr. Jacquelyn Robb Calcium [Mass/Vol] 9.1 mg/dL Normal 8.5-10.1 [facility] Comment on above: Performed By: #### B MP #### [facility] [address] [address] [address] Jacquelyn Robb Chloride [Moles/Vol] 105 mmol/L Normal 98-107 [facility] Comment on above: Performed By: #### B MP #### [facility] [address] [address] [address] Jacquelyn Robb CO2 [Moles/Vol] 27.8 mmol/L Normal 21.0-32.0 [facility] Comment on above: Performed By: #### B MP #### [facility] [address] [place] [address] Dr. Jacquelyn Robb Creatinine [Mass/Vol] 0.63 mg/dL Normal 0.55-1.02 [facility] Comment on above: Performed By: #### B MP #### [facility] [address] [address] [address] Jacquelyn Robb EGFR-AF SYRIAN >60 Normal >=60 [facility] Comment on above: Performed By: #### B MP #### [facility] [address] [address] [address] Jacquelyn Robb EGFR-NON AF SYRIAN >60 Normal >=60 [facility] Comment on above: Performed By: #### B MP #### [facility] [address] [address] [address] Jacquelyn Robb Glucose [Mass/Vol] 136 mg/dL Critically high 74-106 [facility] Comment on above: Performed By: #### B MP #### [facility] [address] [address] [address] Jacquelyn Robb Potassium [Moles/Vol] 3.8 mmol/L Normal 3.5-5.1 [facility] Comment on above: Performed By: #### B MP #### [facility] [address] [address] [address] Jacquelyn Robb Sodium [Moles/Vol] 142 mmol/L Normal 136-145 [facility] Comment on above: Performed By: #### B MP #### [facility] [address] [address] [address] Jacquelyn Robb Urea nitrogen [Mass/Vol] 9.0 mg/dL Normal 7.0-18.0 [facility] Comment on above: Performed By: #### B MP #### [facility] [address] [address] [address] Jacquelyn Robb Urea nitrogen/Creatinine [Mass ratio] 14.3 mg/mg Normal [facility] Comment on above: Performed By: #### B MP #### [facility] [address] [address] [address] Jacquelyn Robb XR knee RT 4V*on 11-19-2021 XR knee RT 4V* [facility] [employer] Other XR knee RT 4V* [facility] [employer] Other XR knee RT 4V* [address] [facility] [employer] Other XR knee RT 4V* [place] [address] No rt [employer] Other XR knee RT 4V* XRay Report appening Other XR knee RT 4V* Signed [employer] Other XR knee RT 4V* Patient: Crhistopher Castaneda MR#: [id number] [employer] Other XR knee RT 4V* 7309 [employer] Other XR knee RT 4V* : 1965 Acct:[id number] [employer] Other XR knee RT 4V* Age/Sex: 56 / F ADM Date: 11/19/21 [employer] Other XR knee RT 4V* Loc: XDUCLY Room: pe: REG CLI [employer] Other XR knee RT 4V* Attending Dr: Freda Menjivar [facility] [employer] Other XR knee RT 4V* Ordering Provider: HANH MENJIVAR [employer] Other XR knee RT 4V* Date of Service: 11/19/21 [employer] Other XR knee RT 4V* [id number]) XR/XR knee RT 4V*: RIGHT KNEE PAIN [employer] Other XR knee RT 4V* Copies to: Jose MENJIVAR [employer] Other XR knee RT 4V* 4 views RIGHT knee p louise film [employer] Other XR knee RT 4V* COMPARISON:None [employer] Other XR knee RT 4V* HISTORY:RIGHT knee p ain and swelling for 3 days. [employer] Other XR knee RT 4V* No fracture, disloca tion or focal soft tissue abnormality seen. No supra patellar effusion [employer] Other XR knee RT 4V* identified. Patellar enthesophytes noted. [employer] Other XR knee RT 4V* X R/XR knee RT 4V* [employer] Other XR knee RT 4V* IMPRESSION:No acute findings [employer] Other XR knee RT 4V* Impression dictated by: Claudio Vizcarra M.D.11/19/2021 5:58 PM [employer] Other XR knee RT 4V* Dictation Location: [place] [address] [employer] Other XR knee RT 4V* Transcribed By: SON 11/19/21 [facility] [employer] Other XR knee RT 4V* Dictated By: Arcadio Vizcarra DO 11/19/21 [employer] Other XR knee RT 4V* Signed By: [employer] Other XR knee RT 4V* 11/19/21 [facility] [employer] Other XR-KNEE LEFT 1-2 VIEWSon XR-KNEE LEFT 1-2 VIEWS EXAM: XR-KNEE LEFT 1-2 VIEWS DATE OF EXAM: 01/15/2021 2:34 PM DEMOGRAPHICS: 55 years old Female CLINICAL STATEMENT: M25.561: Pain in right knee M25.562: Pain in left knee M25.561: Pain in right knee M25.562: Pain in left knee G89.29: Other chronic pain History: Left knee pain. Number of Series/Images: 2. COMPARISON: None available. FINDINGS: Tiny marginal osteophytes. Slight joint space narrowing at the medial compartment. No acute fracture or dislocation. No sizable joint effusion. IMPRESSION: IMPRESSION: 1. No acute osseous abnormality at the left knee. 2. Minimal osteoarthritis. Electronically Signed by: Subhash العراقي MD, 01/15/2021 2:37 PM Normal [facility] XR-KNEE RIGHT 1-2 VIEWSon XR-KNEE RIGHT 1-2 VIEWS EXAM: XR-KNEE RIGHT 1-2 VIEWS DATE OF EXAM: 01/15/2021 2:34 PM DEMOGRAPHICS: 55 years old Female CLINICAL STATEMENT: M25.561: Pain in right knee M25.562: Pain in left knee M25.561: Pain in right knee M25.562: Pain in left knee G89.29: Other chronic pain History: Right knee pain. Number of Series/Images: 2. COMPARISON: None available. FINDINGS: Tiny marginal osteophytes. Slight joint space narrowing at the medial compartment. No acute fracture or dislocation. No sizable joint effusion. IMPRESSION: IMPRESSION: 1. No acute osseous abnormality at the right knee. 2. Minimal osteoarthritis. Electronically Signed by: Subhash العراقي MD, 01/15/2021 2:37 PM Normal [facility] Cardiovascular Lab Reporton 04-12-2017 Cardiovascular Lab Report [facility] Patient Name: Raquel [facility] MR #: [id number] Physician: Kalpana Garza,Department of M.D.Medicine Service Date: 04/08/2017Division of Birthdate: 1965Cardiology Room #: CCAdult [address]Services[address] [address] [place], [place] [address]C[facility] Fax Cardiovascular Laboratory ReportFINAL IMPRESSIONS1.Mild disease of the proximal left anterior descending coronary arterywith superimposed spasm, relieved with intracoronary nitroglycerin.2.Nonobstructi ve left circumflex and right coronary arteries.3.Mild to moderately reduced global left ventricular systolic function.4.Normal right-sided heart pressures and wedge pressure.5.Normal cardiac output/cardiac index.RECOMMENDATIONS1.Aggre ssive cardiovascular risk factor modification.2.Optimization of medical management; continue aspirin, statin,beta-sonia and the angiotensin converting enzyme inhibitor; will increaseher lisinopril to 10 mg a day with a followup BMP in a week.3.Consider various etiologies for her known ischemic cardiomyopathyincluding hypertensive heart disease, viral cardiomyopathy, dilatedcardiomyopathy, etc.4.Follow up with Dr. Marks in the [facility] in the next 2-4weeks.5.Follow up with Dr. Wood as scheduled.PROCEDURESLimited femoral angiography, right heart catheterization, bilateralselective coronary angiography, intracoronary administration ofnitroglycerin, left heart catheterization, left ventriculography.METHODSAfte r risks, benefits, and alternatives were explained, written informedconsent was obtained. The patient was prepped and draped in the usualsterile fashion over the right groin. Using 1% lidocaine solution, localinfiltration anesthesia was achieved. Using a modified Seldinger technique,access to the right common femoral vein was obtained and a 6-Guamanian 11-cmsheath inserted without difficulty. This was repeated over the right commonfemoral artery. Limited femoral angiography was performed.Right heart catheterization was performed using a Middleton catheter via thevenous sheath. Pressures were measured in the right atrium, rightventricle, pulmonary artery, and pulmonary capillary wedge positions.Oxygen saturations were obtained and cardiac output/cardiac index wascalculated using the Michaela principle.Bilateral selective coronary angiography was then performed using JL4 andJR4 catheters. Presumed spasm of the proximal left anterior descending wasencountered.Therefore, a 6-Guamanian XB 3.5 guide catheter was advanced in and coaxiallyengaged into the left main coronary ostium over a J-wire. Intracoronarynitroglycerin was administered. Repeat angiography showed resolution of thesuspected spasm. The catheter was removed.An angled pigtail catheter was used for left heart catheterization, leftventriculography, and aortic pullback pressure measurements. Afterreviewing the images and data, it was elected to conclude the procedure.A 6-Guamanian MynxGrip closure device was deployed per protocol achievingoptimal hemostasis. Overall, the patient tolerated the procedure well.There were no overt complications. [facility].FINDINGSHemodynami cs:RA mean of 6.RV 30/5, 10.PA 30/8 (20).PCWP 10.TPG 10 mmHg.AO 110/65 (82).LV 110/7, 12.Cardiac output 7.02/cardiac index 3.27.LEFT VENTRICULOGRAPHYSingle plane ventriculography in the right anterior oblique projectionshows an ejection fraction estimated to be 35-40% with mild globalhypokinesis. No significant mitral regurgitation is seen. The aortic rootappears within normal limits in size with no significant stenotic oraneurysmal segments.CORONARY ARTERIESLeft main coronary artery. This arises from the left coronary cusp. Itbifurcates into the left anterior descending and left circumflex coronaryartery. It is a short vessel with no significant stenosis.Left anterior descending coronary artery. This shows mild luminalirregularities. The ostial and proximal portion shows suspected spasm afterselective engagement with the JL-4 diagnostic catheter. The spasm wasresolved with intracoronary nitroglycerin and there is a baseline 10-20%narrowing.Left circumflex coronary artery. This shows mild plaque and luminalirregularities and is nonobstructive angiographically.Right coronary artery. This is a dominant vessel giving rise to theposterior descending and posterolateral branches. It is nonobstructiveangiographical ly.Limited femoral angiography. This shows mild plaque particularly at theostium of the profunda femoral artery and anatomy suitable for a closuredevice.INDICATIONSMsYajaira Castaneda is a 51-year-old woman with risk factors for heart disease, whopresented with shortness of breath, newly diagnosed congestive heartfailure, and reduction in her ejection fraction. Findings and managementstrategies are outlined above.Electronically Signed by:Kalpana Garza M.D. 05/11/2017 02:36 P Kalpana Garza M.D.Date Dict: 04/08/2017//Kalpana Garza M.D.Date Trans: 04/12/2017 01:56 P/Fan_[id number]/cc: Bj Marks M.D. [address] [facility] [address] Linda Wood N.P. [address] [place] [address] Normal [facility] Vital Signs Date Time Vital Sign Value Performing Clinician Facility 09-27-2023 09:01-0500 Diastolic blood pressure 76 mm[Hg] MANAGER DIESEL Linda Wood Work Phone: [facility] 09-27-2023 09:01-0500 Heart rate 88 /min MANAGER DIESEL Lindaodessa Wood Work Phone: [facility] 09-27-2023 09:01-0500 Respiratory rate 16 /min MANAGER DIESEL Lindaodessa Wood Work Phone: [facility] 09-27-2023 09:01-0500 SaO2% (BldA) [Mass fraction] 96 % MANAGER DIESEL Lindaodessa Wood Work Phone: [facility] 09-27-2023 09:01-0500 Systolic blood pressure 139 mm[Hg] MANAGER DIESEL Linda Wood Work Phone: [facility] 09-27-2023 07:20-0500 Body height 162.56 cm MANAGER DIESEL Lindaodessa Wood Work Phone: [facility] 09-27-2023 07:20-0500 Body weight 117.93 kg MANAGER DIESEL Lindacristian Wood Work Phone: [facility] 07-09-2023 09:35-0400 Body height 162.56 cm Cyndi Haas Other [employer] Other 07-09-2023 09:35-0400 Body mass index (BMI) [Ratio] 44.01 kg/m2 Cyndi Haas Other [employer] Other 07-09-2023 09:35-0400 Body temperature 97.9 [degF] Cyndi Samina Other [employer] Other 07-09-2023 09:35-0400 Body weight 116.3 kg Cyndi Samian Other [employer] Other 07-09-2023 09:35-0400 Diastolic blood pressure 70 mm[Hg] Cyndi Samina Other [employer] Other 07-09-2023 09:35-0400 Respiratory rate 20 /min Cyndi Samina Other [employer] Other 07-09-2023 09:35-0400 SaO2% (BldA) [Mass fraction] 92 % Cyndi Samina Other [employer] Other 07-09-2023 09:35-0400 Systolic blood pressure 135 mm[Hg] Cyndi Samina Other [employer] Other 03-30-2023 09:20-0400 Body height 162.56 cm Cyndi Samina Other [employer] Other 03-30-2023 09:20-0400 Body mass index (BMI) [Ratio] 45.52 kg/m2 Cyndi Samina Other [employer] Other 03-30-2023 09:20-0400 Body temperature 98 [degF] Cyndi Samina Other [employer] Other 03-30-2023 09:20-0400 Body weight 120.29 kg Cyndi Samina Other [employer] Other 03-30-2023 09:20-0400 Respiratory rate 18 /min Cyndi Samina Other [employer] Other 03-30-2023 09:20-0400 SaO2% (BldA) [Mass fraction] 96 % Cyndi Samina Other [employer] Other 2022 12:05-0400 Body height 162.56 cm Cyndi Samina Other [employer] Other 2022 12:05-0400 Body mass index (BMI) [Ratio] 45.31 kg/m2 Cyndi Samina Other [employer] Other 2022 12:05-0400 Body temperature 97 [degF] Cyndi Samina Other [employer] Other 2022 12:05-0400 Body weight 119.75 kg Cyndi Samina Other [employer] Other 2022 12:05-0400 Diastolic blood pressure 70 mm[Hg] Cyndi Samina Other [employer] Other 2022 12:05-0400 Respiratory rate 18 /min Cyndi Samina Other [employer] Other 2022 12:05-0400 SaO2% (BldA) [Mass fraction] 97 % Cyndi Samina Other [employer] Other 2022 12:05-0400 Systolic blood pressure 116 mm[Hg] Cyndi Samina Other [employer] Other 11-19-2021 18:00-0500 Body height 162.56 cm Hanh Menjivar Other [employer] Other 11-19-2021 18:00-0500 Body mass index (BMI) [Ratio] 45.62 kg/m2 Hanh Menjivar Other [employer] Other 11-19-2021 18:00-0500 Body temperature 98.5 [degF] Hanh Menjivar Other [employer] Other 11-19-2021 18:00-0500 Body weight 120.57 kg Hanh Menjivar Other [employer] Other 11-19-2021 18:00-0500 Diastolic blood pressure 95 mm[Hg] Hanh Franklinault Other [employer] Other 11-19-2021 18:00-0500 Respiratory rate 18 /min Hanh Menjivar Other [employer] Other 11-19-2021 18:00-0500 SaO2% (BldA) [Mass fraction] 98 % Hanh Menjivar Other [employer] Other 11-19-2021 18:00-0500 Systolic blood pressure 158 mm[Hg] Hanh Menjivar Other [employer] Other Encounters Encounter Date Encounter Type Care Provider Facility Start: 03-27-2024 End: 03-27-2024 ambulatory FRANCINE PINEDA [facility] Start: 09-27-2023 End: 09-27-2023 ambulatory Linda Wood Facility:[facility] Start: 09-27-2023 End: 09-27-2023 Admission to same day surgery center SATHISH Linda Wood Work Phone: [facility] Work Phone: Start: 09-27-2023 End: 09-27-2023 ambulatory SATHISH Prajapati Nina Work Phone: [facility] Work Phone: Start: 08-22-2023 End: 08-22-2023 ambulatory Baltazar Askew Other [facility] [employer] Other Start: 08-22-2023 Office outpatient ne w 30 minutes Baltazar Askew [facility] Start: 07-09-2023 End: 07-09-2023 ambulatory Cyndi Haas Other [facility] [employer] Other Start: 07-09-2023 Office outpatient visit 15 minutes Cyndi Samina [facility] Start: 03-30-2023 Office outpatient visit 15 minutes Cyndiashley Haas [facility] Start: 03-30-2023 End: 03-30-[address] [facility] [employer] Other Start: 03-30-2023 End: 03-30-2023 Departed [employer]erred [employer] FINISHER-C Cyndi Haas Work Phone: [facility] [place] Work Phone: Start: 01-08-2023 End: 01-09-[address] DOCTOR OLIVEIRA Facility:[facility] Start: 11-10-2022 End: 11-11-[address] DOCTOR OLIVEIRA Facility:[facility] Start: 2022 End: 2022 ambulatory [address]GUERO . [facility] [employer] Other Start: 2022 Office outpatient visit 15 minutes Cyndiashley Haas [facility] Start: 04-16-2022 End: 04-17-2022 ambulatory HAL REYES Facility:[facility] Start: 11-19-2021 End: 11-19-2021 ambulatory Hanh Sofia Other [employer] Other Start: 11-19-2021 Office outpatient ne w 20 minutes Hanh Sofia [facility] Start: 04-08-2017 End: 04-09-2017 Ambulatory EHAB A [facility] Facility:[facility] Start: 04-04-2017 End: 04-05-2017 Ambulatory DEFAULT PHYSICIAN Facility:[facility] Procedures Date Procedure Procedure Detail Performing Clinician Start: 09-27-2023 Esophagogastroduodenoscopy SATHISH Wood Work Phone: Start: 03-30-2023 Piperacillin/tazobactam Cyndi Haas Other Plan of Treatment Date Care Activity Detail Author Start: 09-27-2023 [facility] Start: 03-30-2023 Bacteria identified in Urine by Culture [facility] Patient Education Esophageal Dilation [facility] Work Phone: Payers Date Payer Category Payer Self-pay [id number] 1965 Unknown [id number] 2.16.84 [id number] 1965 Unknown [id number] .16.84 [id number] 1965 Unknown [id number] .16.84 [id number] 1965 Unknown [id number] .16.84 [id number] 1957 Medicaid [id number] 1957 Unknown [id number] Unknown Unknown [id number] [id number] Unknown [id number] .16.8 [id number] Social History Date Type Detail Facility Unknown if ever smoked [employer] Other Sex Assigned At Sex Assigned At Bir th [employer] Other Start: 01-03-2018 End: 09-27-2023 Tobacco smoking status NHIS Smoker (finding) [facility] Start: 1965 Sex Assigned At Female F [facility] Goals Date Patient Goal Desired Activity /State Clinical Notes 02-15-2017 to 03-27-2024 Note Date & Type Note Facility 03-27-2024 Note . Cardiology Follow Up Progress Note Chief Complaint: follow up HPI: Bora Castaneda is a 58 y.o. female who has a past medical history of CHF (congestive heart failure) (CMS/[facility]), COPD (chronic obstructive pulmonary disease) (CMS/HCC), GERD (gastroesophageal reflux disease), Hypertension, and Sleep apnea. That has a telemedicine visit scheduled today for follow up. The patient was notified that using 3rd alliance party telecommunication application (e.g., [employer]) is not HIPPA compliant and may carry some privacy risks. Yes The visit was conducted with the use of video call between patient and provider for a virtual visit. Verbal consent to provide and bill this service was obtained on 03/27/24 No signature was obtained due to the COVID-19 pandemic 2 year follow up hypertension and CHF. Hasn't been taking carvedilol for a few weeks. Says her BP has been around 125 systolic. Had routine labs w/ lipid profile in January 2024. She said in Sep 2023 she woke up on her bathroom floor. She doesn't remember falling or being lightheaded prior. She does remember walking to the bathroom. Patient was able to check her heart rate from home and said it is 118 Patient adamantly denies any cardiac complaints or concerns. Patient denies any chest pain or shortness of breath. Patient denies any lower extremity edema, orthopnea, or proximal nocturnal dyspnea. Cardiology ROS: 10 point ROS is performed and is negative unless otherwise specified in HPI. Medications Current Outpatient Medications on File Prior to Visit Medication Sig Dispense Refill albuterol (Ventolin HFA) 90 mcg/actuation inhaler Inhale 2 puffs every 6 (six) hours if needed. aspirin 81 mg chewable tablet Chew 1 tablet (81 mg) once daily as directed. 90 tablet 3 atorvastatin (Lipitor) 20 mg tablet Take 1 tablet (20 mg) by mouth in the morning. 90 tablet 3 empagliflozin (Jardiance) 25 mg Take 1 tablet by mouth in the morning. gabapentin (Neurontin) 600 mg tablet Take 2 tablets by mouth in the morning, at noon, and at bedtime. isosorbide mononitrate ER (Imdur) 30 mg 24 hr tablet Take 1 tablet (30 mg) by mouth once daily as directed. 90 tablet 3 metFORMIN (Glucophage) 1,000 mg tablet TAKE 1 TABLET BY MOUTH WITH meal once DAILY montelukast (Singulair) 10 mg tablet Take 1 tablet by mouth in the morning. pantoprazole (ProtoNix) 40 mg EC tablet Take 1 tablet by mouth in the morning. potassium chloride CR (Klor-Con M20) 20 mEq ER tablet Take 1 tablet (20 mEq) by mouth once daily as directed. 90 tablet 3 tiotropium (Spiriva Respimat) 2.5 mcg/actuation inhaler Trulicity 0.75 mg/0.5 mL pen injector INJECT 0.75mg SUBCUTANEOUSLY ONCE A WEEK valsartan (Diovan) 160 mg tablet Take 1 tablet (160 mg) by mouth in the morning. 90 tablet 3 carvedilol CR (Coreg CR) 80 mg 24 hr capsule Take 1 capsule (80 mg) by mouth once daily as directed. (Patient not taking: Reported on 03/27/2024) 90 capsule 3 cetirizine (ZyrTEC) 10 mg tablet Take 1 tablet by mouth in the morning. ibuprofen 800 mg tablet TAKE 1 TABLET BY MOUTH WITH FOOD OR MILK THREE TIMES DAILY NEEDED valACYclovir (Valtrex) 1 gram tablet Take 1 tablet by mouth in the morning, at noon, and at bedtime. No current facility-administered medications on file prior to visit. Allergies Ranitidine hcl Physical Exam VITAL SIGNS: Pulse (!) 118 Ht 1.626 m (5' 4 ) Wt 115 kg (253 lb) Comment: stated SpO2 97% BMI 43.43 kg/m??? General: alert, cooperative Respiratory: able to speak in full sentences without cough or SOB Neuro: A&O x 3, responded to questions appropriately, normal speech, memory intact Psych: Normal mood, normal affect Assessment/Plan: Bora Castaneda is a 58 y.o. female with Syncope and collapse Essential hypertension Chronic heart failure with preserved ejection fraction ([facility]/HCC) Tachycardia Patient has not been taking any of her antihypertensive medications Given hypertension and tachycardia, will start patient on Toprol 25 mg daily. Instructed to discontinue carvedilol and valsartan. She voices understanding Patient instructed to check daily blood pressure at home 2 hours after taking medication. Patient is instructed to maintain daily blood pressure log. Patient is to contact cardiology if blood pressures above discuss target range. Patient voices understanding. Given episode concerning for syncope, will obtain 30-day event monitor to rule out malignant arrhythmia. Additionally, will obtain echocardiogram to assess LVEF, regional wall motion, and valvular function [facility] medical management Aggressive risk factor modification Plan of care discussed with patient. All questions were answered. Patient voices understanding and is agreeable with current plan. Patient was educated on red flag symptoms. Strict return precautions were provided. Patient verbalizes understanding Follow-up in cardiology clinic in 3 months, or sooner as needed Francine Schneider (more content not included)... [facility] 09-27-2023 Procedure note [facility] 08-22-2023 Evaluation note Encounter Date Diagnosis Assessment Notes Jul, GERD (gastroesopha geal reflux disease) (ICD-10 - K21.9) Patient is currently taking pantoprazole and will continue this therapy Patient is advised to have an EGD ordered today, scheduled today Risks and benefits of procedure explained to patient; patient verbalizes understanding. Patient reports that she is currently a smoker, she has been advised to stop smoking. Patient educated on trigger foods Jul, Abdominal pain (ICD-10 - R10.9) Patient reports that she has epigastric pain that radiates to her back that is throbbing in nature [facility] Other 10-14-2023 Evaluation note* Encounter Date Diagnosis Assessment Notes Treatment Notes Treatment Clinical Notes Jun, Sore throat (ICD-10 - J02.9) Jun, Bronchitis (ICD-10 - J40) Drink plenty fluids, get plenty of rest. Continue home medications as prescribed. Take the prednisone and valacyclovir as prescribed until gone. Follow-up with your family physician if no improvement in 2 to 3 days. You may apply Aspercreme to the shingles rash as needed for pain. Jun, Congestion of respiratory tract (ICD-10 - J98.8) Jun, Herpes zoster without complication (ICD-10 - B02.9) Shingles home care material was printed [facility] Other 07-05-2023 Evaluation note* Encounter Date Diagnosis Assessment Notes Treatment Notes Treatment Clinical Notes Mar, Urination frequency (ICD-10 - R35.0) Mar, Urinary tract infection, site not specified (ICD-10 - N39.0) Urinary tract infection (UTI) home care material was printed Drink plenty fluids, get plenty of rest. Take the Macrobid and Pyridium as prescribed until gone. Follow-up with your family physician if no improvement in 2 to 3 days. Take Tylenol or Motrin as needed for aches pains or fever Mar, Hematuria, unspecified (ICD-10 - R31.9) [facility] Other 09-28-2022 Evaluation note* Encounter Date Diagnosis Assessment Notes Treatment Notes Treatment Clinical Notes May, Abdominal pain of unknown etiology (ICD-10 - R10.9) Abdominal pain: adult home care material was printed Go directly to the ER for further evaluation of your abdominal pain. May, Glucosuria (ICD-10 - R81) [facility] Other 02-24-2022 Evaluation note* Encounter Date Diagnosis Assessment Notes Treatment Notes Treatment Clinical Notes Oct, Acute pain of right knee (ICD-10 - M25.561) Xray shows no fractures, disloactions but arthritis is present. Use RICE therapy as discussed: Rest, Ice Compression, Elevate. Apply ice to affected area 3-4 times daily (Do not place ice source directly on skin, must cover with towel-like material). Take medication as directed. Rest and elevate sore extremity as much as possible. Do not take OTC medication pain relievers if prescription of medication given in office today. Follow up with primary care provider if symptoms are not improved or call office and we can help you find specialist in the area Your BLOOD SUGAR MAY INCREASE with medication. Watch carb intake to help balance out increase [facility] Other [id number] History general Narrative - Reported* Type Description Date Medical History GERD Medical History 02/15/2017 EGD/Velazquez- Ulcer GE junction, Sm hiatal hernia, Medical History Diarrhea Medical History Abdominal pain, unspecified site Medical History Nausea alone Medical History GERD (gastroesophageal reflux di sease) Medical History Gastritis Medical History Hiatal hernia Medical History Internal hemorrhoids Medical History type II diabetes Medical History Congestive Heart Failure Surgical History CHOLECYSTECTOMY Surgical History TUBAL LIGATION Surgical History BREAST BIOPSY Surgical History CARPAL TUNNEL Surgical History C SECTION X3 Surgical History COLONOSCOPY 2013 Surgical History heart catheterization Hospitalization History Weak Heart 2016 [facility] Other Evaluation noteNo assessment information available [facility] Work Phone: Evaluation note* Diagnosis Onset Date Resolution Status Dysphagia acute [facility] Work Phone: Hospital Discharge instructions Additional Instructions DISCHARGE INSTRUCTIONS FOR ENDOSCOPY FOR COLONOSCOPY: -Expect a gassy or full feeling after a colonoscopy. Report any NEW abdominal pain or vomiting. -Watch for rectal bleeding if you have a polyp removed. You may have oozing, but notify the doctor if you pass clots. -Avoid aspirin for 2 days IF a polyp is removed. -It is important to keep your appointments for follow up examinations because polyps can grow back. FOR VELAZQUEZ/EGD/ERCP/PEG: -Your throat may feel sore today from the scope that the doctor passed through your throat to visualize your stomach. Take a throat lozenge or suck on ice to ease the discomfort. -Do NOT smoke. -You may notice some streaks of blood in your sputum if the doctor has taken a biopsy. Notify the doctor if you cough up large amounts of blood. -Expect a gassy or full feeling after esophagoscopy. Report any persistent pain or vomiting. -Take it easy today. You need not stay in bed, but avoid strenuous activities such as jogging. FOR SEDATION FOR 24 HOURS: -NO driving -Do NOT operate machinery such as power tools, lawn mowers, snow blowers, sewing machines, etc. -Avoid alcoholic beverages and drugs for allergies, nerves, or sleep. -Do NOT stay alone. Do NOT leave your child unattended. -Do NOT make important personal or business decisions or sign any legal documents. -Eat solid foods and drink liquids in smaller amounts than usual until normal appetite returns. If you should experience an upset stomach, liquids high in sugar content (soda, Rogelio-aid, non-acid juices) are recommended. -You can resume normal activities tomorrow. FOLLOW UP Please call the office and make a follow up appointment to see Baltazar in 6 to 8 weeks Soft diet today. Resume normal diet tomorrow. -Notify the doctor if you have any problems. -Office number [phone] Work Phone: Summary Purpose Family History No Family History Records Found Relationship Condition Age at Onset Recorded Date/T jose roberto father Myocardial infarction Unknown brother Diabetes mellitus Unknown Advance Directives No Advanced Directives Records Found Advance Directive Response Recorded Date/ Time Advance Directives No May 10:01am Advance Directive Response Recorded Date/ Time Advance Directives No May 9:01am Chief Complaint and Reason for Visit Chief Complaint GERD, Abdominal Pain Reason for Visit Dysphagia Additional Source Comments INFORMATION SOURCE (unrecogn ized section and content) DATE CREATED AUTHOR 03/22/[address] [facility] DATE CREATED AUTHOR AUTHOR'S ORGANIZ ATION 01/22/2021 [facility] DATE CREATED AUTHOR AUTHOR'S ORGANIZ ATION 01/13/2023 [facility] DATE CREATED AUTHOR AUTHOR'S ORGANIZ ATION 11/04/2023 [facility] DATE CREATED AUTHOR AUTHOR'S ORGANIZ ATION 04/12/2024 [facility] REASON FOR VISIT (unrecogniz ed section and content) RIGHT KNEE PAIN, SWELLING TH AT STARTED 3 DAYS AGOPAIN IN LOW ABDBLADDER INFECTIONBLADDER INFECTIONBLADDER INFECTIONCOUGH, CONGESTION, SORE THROAT, GOING TO [facility] IS HERE FOR CONSULT FOR GERD Care Teams (unrecognized sec tion and content) Team Status: Inactive Member Role Status Dates Cyndi Haas NP-C Attending Provider Active Team Status: Active Member Role Status Dates SATHISH Veronica Primary Care Provide r Active Team Status: Inactive Member Role Status Dates Edd Day MD Attending Provider Active Linda K Myerholtz , MANAGER [employer]-C Primary Care Provide r Active Goals (unrecognized section and content) Goals may be documented in a n alternate section FOR RECORDS PERTAINING TO PATIENTS WHO ARE OR HAVE BEEN ENROLLED IN A CHEMICAL DEPENDENCY/SUBSTANCEABUSE PROGRAM, SOME INFORMATION MAY BE OMITTED. This clinical summary was aggregated from multiple sources. Caution should be exercised in using it in the provision of clinical care. This summary normalizes information from multiple sources, and as a consequence, information in this document may materially change the coding, format and clinical context of patient data. In addition, data may be omitted in some cases. CLINICAL DECISIONS SHOULD BE BASED ON THE PRIMARY CLINICAL RECORDS. [email or web address] [facility]. provides no warranty or guarantee of the accuracy or completeness of information in this document.
--- NOTE | 2024-06-04 09:58 | CA_ITS ---
Patient Name: BORA GARCÍA MR#: [id number] : 1965 Exam Date: 06/04/2024 Ordering Doctor: FRANCINE PINEDA M.D. ECHOCARDIOGRAM REPORT PROCEDURE: CA ECHO DOPPLER COMPLETE INDICATIONS: Palpitations COMPARISON: None. DESCRIPTION: COMPLETE ECHOCARDIOGRAM Real-time transthoracic echocardiography with 2D, M-mode, spectral and color flow Doppler performed. QUALITY: Technical quality was adequate. LEFT VENTRICLE: Normal chamber size. Mild concentric left ventricular hypertrophy. LV EF: Global left ventricular systolic function is moderately reduced; visually estimated ejection fraction is 35 to 40%. Unable to assess regional wall motion abnormality; consider contrast study for better delineation of endocardial borders. DIASTOLIC: Grade 1 diastolic dysfunction. ATRIAL SEPTUM: Inadequately seen. LEFT ATRIUM: Normal chamber size. RIGHT ATRIUM: Normal chamber size RIGHT VENTRICLE: Normal chamber size. Normal right ventricular systolic function. TRICUSPID VALVE: Normal mobility and thickness. No stenosis with trivial regurgitation. No evidence of pulmonary hypertension. RVSP 26mmHg MITRAL VALVE: Normal mobility and thickness. No evidence of mitral valve stenosis. There is no mitral annular calcification. No mitral regurgitation. AORTIC VALVE: Normal trileaflet appearance. No visible sclerosis. Normal leaflet mobility. No evidence of aortic valve stenosis. No aortic regurgitation. AORTIC ROOT: Normal diameter and appearance. PULMONIC VALVE: Normal thickness and mobility. No stenosis. No regurgitation. PERICARDIUM: No evidence of pericardial effusion. IVC: Collapses with inspirations. Normal size CONCLUSION: 1. Global left ventricular systolic function is moderately reduced; visually estimated ejection fraction is 35 to 40% 2. Normal right ventricular size and systolic function 3. Mild left ventricular hypertrophy 4. Grade 1 diastolic dysfunction 5. The left atrium is normal in size 6. No significant valvular abnormalities Adult Echocardiography Procedure Report Left Ventricle LVEDD (3.7 - 5.6 cm): 4.64 cm LVESD (2.2 - 4.0 cm): 3.79 cm LVIVS thickness (0.6 - 1.2 cm): 1.08 cm LVPW thickness (0.5 - 1.0 cm): 1.06 cm e': 0.06 m/s E - e': 8.66 LVOT Max Gradient: 1.14 mm[Hg] LVOT Area (cm2): 0.53 m/s Peak Velocity (LVOT): 0.53 m/s Mean Velocity (LVOT): 0.34 m/s LVOT Diameter 2.21 cm Left Ventricular Ejection Fraction: 36.39 % Left Atrium LA Volume Index (2D A2C): 20.81 ml/m2 Left Atrium Systolic Dimension: 3.30 cm Mitral Valve MV E to A Ratio: 0.66 Mitral Valve A-Wave Peak Velocity: 0.74 m/s Mitral Valve E-Wave Peak Velocity: 0.49 m/s Right Ventricle RV Internal Diastolic Dimension: 3.85 cm Aorta AO Root Diam: 2.94 cm Ascending Ao Diam: 2.70 cm Aortic Valve AoV Area (Peak Emiliano): 1.94 cm2, 2.07 cm2 AoV Area (VTI): 2.44 cm2, 2.48 cm2 Peak Velocity(Antegrade Flow): 0.99 m/s, 1.12 m/s, 0.99 m/s, 1.12 m/s Peak Gradient(Antegrade Flow): 3.95 mm[Hg], 5.04 mm[Hg], 3.95 mm[Hg], 5.04 mm[Hg] Mean Velocity(Antegrade Flow): 0.75 m/s, 0.79 m/s, 0.75 m/s, 0.79 m/s Mean Gradient(Antegrade Flow): 2.50 mm[Hg], 2.79 mm[Hg], 2.50 mm[Hg], 2.79 mm[Hg] Velocity Time Integral: 17.02 cm, 17.64 cm, 17.02 cm, 17.64 cm Tricuspid Valve Peak Velocity (Regurgitant Flow): 2.37 m/s, 2.28 m/s, 2.15 m/s Pulmonic Valve Mean Gradient: 2.09 mm[Hg] Mean Velocity: 0.69 m/s Peak Velocity: 0.90 m/s, 0.76 m/s Peak Gradient: 2.29 mm[Hg], 3.24 mm[Hg] Right Atrium Right Atrium Systolic Pressure: 47.71 ml, 47.71 ml Dictated by: Kalpana Garza M.D. on 06/04/2024 at 16:51 Approved by: Kalpana Garza M.D. on 06/04/2024 at 16:54
== END 2024-06-04 09:46 | disposition home or self-care (01) ==
LOC: CARD 09:45
PROVIDERS: Visit Provider Internal Medicine Cardiovascular Disease
DX: R00.2 Palpitations (principal)
CPT/HCPCS: 93306; 93356

== ENCOUNTER 2024-07-20 13:12 | Outpatient (OUT) | payer OTHER, SELFPAY ==
--- OUTSIDE RECORDS SUMMARY | 2024-07-20 13:16 | XMS_ITS | CCD ---
Author Organization [facility] Care Team Providers Care Cloth Winding Supervisor Name Role Phone PHYSICIAN, DEFAULT Unavailable Unavailable [...] Unavailable MISC, DR MEYER Primary Care Unavailable AMY, HAL Admitting Unavailable AMY, HAL Attending Unavailable AMY, HAL Consulting Unavailable NOEMY ., AKHIL Admitting Unavailable WEST, DR RIA Phillips Consulting Unavailable NOEMY ., AKHIL Attending Unavailable MISC, DR MEYER Primary Care Unavailable IRENE .OPAL Consulting Unavailable PRINCE Haas Attending Provider Baltazar Askew Unavailable MD Edd Ulloa Attending Provider SATHISH Wood Primary Care Provide r Edd Ulloa Admitting UnavailEdd Nice Attending Unavailgary e Linda Wood Primary Care Unavailab Ayleen Dash Attending Unavailable Ayleen Hatfield Admitting Unavailable FRANCINE PINEDA Attending Unavailable FRANCINE PINEDA Attending Unavailable SATHISH Hatfield Attending Provider Allergies Allergy Classification Reported Allergen(s) Allergy Type Date of Onset Reaction(s) Facility (2 sources) raNITIdine Drug Allergy 4 [facility] (1 source) No Known Allergies; Translations: [No Known Allergies] Propensity to adverse reactions (disorder) [facility] (3 sources) raNITIdine; Translations: [ranitidine] Drug Allergy 8 [facility] (1 source) raNITIdine; Translations: [RANITIDINE HCL] Drug Allergy 2 [facility] Medications Current Medications Medication Drug Class(es) Dates Sig (Normalized) Sig (Original) [id number] 200 actuat albuterol 0.09 mg/actuat metered dose inhaler (11 sources) beta2-Adrenergic Agonist Start: 09-27-2023 take 1 puff(s) by inhalation four times daily Albuterol Sulfate Active 2 PUFF INHALATION Four times daily September 27, 2023 1:00am Start: 07-09-2023 take 2 puff(s) by in [...] Albuterol Active aspirin 81 mg chewable tablet (10 sources) Platelet Aggregation Inhibitor, Nonsteroidal Anti-inflammatory Drug Start: 10-24-2017 take 81 mg by mouth once daily Aspirin Active 81 MG PO Daily October 24, 2017 1:00am atorvastatin 20 mg oral tablet (10 sources) HMG-CoA Reductase Inhibitor Start: 10-24-2017 take 20 mg by mouth once daily Atorvastatin Active 20 MG PO Daily October 24, 2017 1:00am dexamethasone 4 mg oral tablet (1 source) Corticosteroid Start: 11-19-2021 take 1 tablet by mouth every twenty-four hours Dexamethasone 4 MG 1 tablet Orally Once a day for 5 day(s) Oct, Active 0.5 ml dulaglutide 3 mg/ml auto-injector (8 sources) GLP-1 Receptor Agonist Start: 07-04-2024 Dulaglutide (Trulicity) 1.5 mg/0.5 mL pen injector Active MG SUBCUT July 04, 2024 12:00am Start: 09-27-2023 End: 07-04-2024 Dulaglutide (Trulicity) 0.75 mg/0.5 mL pen injector Discontinued 0.75 MG SUBCUT every week September 27, 2023 1:00am July 04, 2024 1:37pm Trulicity 0.75 M G/0.5ML as directed Subcutaneous Active empagliflozin 25 mg oral tablet (9 sources) Sodium-Glucose Cotransporter 2 Inhibitor Start: 09-27-2023 take 1 tablet by mouth once daily Empagliflozin (Jardiance) 25 mg tablet Active 25 MG PO Daily September 27, 2023 1:00am Jardiance Active gabapentin 600 mg oral tablet (9 sources) Anti-epileptic Agent Start: 09-27-2023 take 600 mg by mouth three times daily Gabapentin Active 600 MG PO Three times daily September 27, 2023 1:00am Gabapentin Activ e hydrOXYzine hydrochloride 25 mg oral tablet (1 source) Antihistamine Start: 07-04-2024 Hydroxyzine Hc l Active MG PO July 04, 2024 12:00am 24 hr isosorbide mononitrate 30 mg extended release oral tablet (2 sources) Nitrate Vasodilator Start: 09-27-2023 take 30 mg by mouth once daily Isosorbide Mononitrate Active 30 MG PO Daily September 27, 2023 1:00am Isosorbide Dinitrate (7 sources) Nitrate Vasodilator Isosorbide Dinitrate Active metFORMIN hydrochloride 1000 mg oral tablet (9 sources) Biguanide Start: 09-27-2023 take 1000 mg by mouth once daily Metformin Active 1000 MG PO Daily September 27, 2023 1:00am metFORMIN HCl Ac tive 24 hr metoprolol succinate 25 mg extended release oral tablet (9 sources) beta-Adrenergic Sonia Start: 07-04-2024 Metopr olol Succinate Active MG PO July 04, 2024 12:00am Start: 10-24-2017 End: 01-03-2018 take 1.5 tablets by mouth once daily Metoprolol Succinate Discontinued 1.5 TAB PO Daily October 24, 2017 1:00am January 03, 2018 6:49pm Metoprolol Tartr ate 50 MG 1 1/2 tablet with food Orally Twice a day Not-Taking montelukast 10 mg oral tablet (9 sources) Leukotriene Receptor Antagonist Start: 09-27-2023 take 10 mg by mouth once daily Montelukast Active 10 MG PO Daily September 27, 2023 1:00am take 1 tablet by herbie th every [...] pantoprazole 40 mg delayed release oral tablet (10 sources) Proton Pump Inhibitor Start: 10-24-2017 take 40 mg by mouth twice daily Pantoprazole Active 40 MG PO Twice daily October 24, 2017 1:00am phenazopyridine hydrochloride 200 mg oral tablet (3 sources) Start: 03-30-2023 take 1 tablet by mouth every eight hours Pyridium 200 MG 1 tablet after meals Orally Three times a day for 2 day(s) Mar, Active microencapsulated potassium chloride 20 meq extended release oral tablet (10 sources) Start: 10-24-2017 take 20 mEq by mouth once daily Potassium Chloride Active 20 MEQ PO Daily October 24, 2017 1:00am predniSONE 20 mg oral tablet (4 sources) Start: 07-09-2023 take 1 tablet by mouth every twelve hours predniSONE 20 MG 1 tablet Orally bid for 5 day(s) Jun, Active Start: 01-03-2018 End: 09-27-2023 take 60 mg by mouth once daily at mealtime Prednisone Discontinued 60 MG PO Daily 15 January 03, 2018 12:00am September 27, 2023 8:07am administer with food or milk Spiriva Respimat (7 sources) Spiriva Respimat Active 60 actuat tiotropium 0.73647 mg/actuat inhalation spray (2 sources) Anticholinergic Start: take 1 puff(s) by inhalation once daily Tiotropium [place] (Spiriva Respimat) 1.25 mcg/actuation Mist Active 2 PUFF INHALATION Daily September 27, 2023 1:00am valACYclovir 1000 mg oral tablet (1 source) Herpesvirus Nucleoside Analog DNA Polymerase Inhibitor, Herpes Simplex Virus Nucleoside Analog DNA Polymerase Inhibitor, Herpes Zoster Virus Nucleoside Analog DNA Polymerase Inhibitor Start: 023 take 1 tablet by mouth every eight hours valACYclovir HCl 1 GM 1 tablet Orally tid for 7 days Jun, Active Completed/Discontinued Medications Medication Drug Class(es) Dates Sig (Normalized) Sig (Original) azithromycin 250 mg oral tablet (3 sources) Macrolide Antimicrobial Start: 01-03-2018 End: 09-27-2023 take 2 tablets by mouth once daily, then take 1 tablet by mouth once daily Azithromycin (Zithromax) 250 mg tablet Discontinued 250 MG PO Daily January 03, 2018 12:00am September 27, 2023 8:06am ZPAK-2 tabs day 1, the 1 tab daily for 4 days benzonatate 100 mg oral capsule (5 sources) Non-narcotic Antitussive Start: 06-16-2017 take 1 capsule by mouth three times daily Tessalon Perles 100 mg 1 capsule Orally Three times a day for 1 month May, Not-Taking carvedilol 25 mg oral tablet (10 sources) alpha-Adrenergic Sonia, beta-Adrenergic Sonia Start: 10-24-2017 End: 07-04-2024 take 25 mg by mouth twice daily Carvedilol Discontinued 25 MG PO Twice daily October 24, 2017 1:00am July 04, 2024 1:37pm Carvedilol Activ e dicyclomine hydrochloride 20 mg oral tablet (3 sources) Anticholinergic Start: 01-03-2018 End: 09-27-2023 take 20 mg by mouth four times daily Dicyclomine Discontinued 20 MG PO Four times daily January 03, 2018 12:00am September 27, 2023 8:07am DULoxetine 60 mg delayed release oral capsule (5 sources) Serotonin and Norepinephrine Reuptake Inhibitor take 1 capsule by mouth every twenty-four hours DULoxetine HCl 60 MG 1 capsule Orally Once a day Not-Taking furosemide 40 mg oral tablet (8 sources) Loop Diuretic Start: 10-24-2017 End: 09-27-2023 take 40 mg by mouth once daily Furosemide Discontinued 40 MG PO Daily October 24, 2017 1:00am September 27, 2023 8:07am Ketorolac (7 sources) Nonsteroidal Anti-inflammatory Drug, Cyclooxygenase Inhibitor Start: 11-19-2021 Toradol per 15 mg Oct, 30 mg losartan potassium 25 mg oral tablet (10 sources) Angiotensin 2 Receptor Sonia Start: 10-24-2017 End: 09-27-2023 take 25 mg by mouth once daily Losartan Discontinued 25 MG PO Daily October 24, 2017 1:00am September 27, 2023 8:07am OLANZapine 5 mg oral tablet (3 sources) Atypical Antipsychotic Start: 01-03-2018 End: 09-27-2023 take 5 mg by mouth once daily Olanzapine Discontinued 5 MG PO Daily January 03, 2018 12:00am September 27, 2023 8:07am PARoxetine hydrochloride 40 mg oral tablet (2 sources) Serotonin Reuptake Inhibitor Start: 09-27-2023 End: 07-04-2024 take 40 mg by mouth once daily Paroxetine Hcl Discontinued 40 MG PO Daily September 27, 2023 1:00am July 04, 2024 1:48pm Triamcinolone (14 sources) Corticosteroid Start: 07-13-2017 Kenalog -40 mg Jun, 40 mg valsartan 160 mg oral tablet (9 sources) Angiotensin 2 Receptor Sonia Start: 09-27-2023 End: 07-04-2024 take 160 mg by mouth once daily Valsartan Discontinued 160 MG PO Daily September 27, 2023 1:00am July 04, 2024 1:48pm Valsartan Active Problems Active Problems Problem Classification Problem Date Documented Da te Episodic/Chronic Abdominal hernia (7 sources) Hiatal hernia; Translations: [Diaphragmatic hernia without obstruction or gangrene] Episodic Abdominal pain (6 sources) Unspecified abdominal pain; Translations: [Right lower quadrant pain] Onset: 2022 Episodic Chronic obstructive pulmonary disease and bronchiectasis (6 sources) Acute exacerbation of chronic obstructive airways [...] disease (1 source) Atherosclerotic heart disease of [place] coronary artery without angina pectoris; Translations: [ATHSCL HEART DISEASE OF [place] CORONARY ARTERY W/O ANG PCTRS] Onset: 04-08-2017 [...] perforation] Chronic Genitourinary symptoms and ill-defined conditions (9 sources) Frequency of micturition; Translations: [Hematuria, unspecified] Onset: 07-04-2024 Episodic Headache; including migraine (4 sources) Headache; [...] Heartburn; Translations: [Heartburn] Episodic Other gastrointestinal disorders (2 sources) Dysphagia; Translations: [Dysphagia, unspecified] 09-27-2023 Episodic Other lower respiratory disease (7 [...] Urinary tract infection, site not specified Episodic Viral infection (1 source) Zoster without complications Episodic Past or Other Problems Problem Classification Problem Date Documented Da te Episodic/Chronic Other aftercare (2 sources) longterm (current) use of aspirin; Translations: [SENIOR LIVING (CURRENT) USE OF ASPIRIN] Onset: 04-08-2017 Episodic Other aftercare (1 source) supervisor intermediates (current) use of oral hypoglycemic drugs; Translations: [DYNAMITER USE ORAL HYPOGLYCEMIC DX] Onset: 06-25-2022 Episodic Other aftercare (1 source) Other detention (current) drug therapy; Translations: [OTH DYNAMITER CURRENT DRUG THERAPY] Onset: 06-25-2022 Episodic Other gastrointestinal disorders (2 sources) Dysphagia, unspecified; Translations: [Dysphagia, unspecified] Onset: 09-27-2023 09-27-2023 Episodic Other lower respiratory disease (1 source) Shortness of breath; Translations: [SHORTNESS OF BREATH] Onset: 04-08-2017 Episodic Other non-traumatic joint disorders (1 source) Pain in right knee Onset: 11-19-2021 Resolved: 11-19-2021 Episodic Results Test Name Value Interpretation Reference Range Facility Office Visiton 07-06-2024 Follow-up visit [id number] Christopher Castaneda 1965 F Date Provider Department Center 07/06/2024 3848-FRANCINE PINEDA Family History Problem Relation Age of Onset Coronary artery disease Father Diabetes Brother Family Status - Relation Status Age at Father Brother Level of Service:78331 [place] OFFICE/OUTPATIENT ESTABLISHED MOD MDM 30 MIN Normal [facility] Orders Onlyon 07-06-2024 Orders Only [id number] Crhistopher Castaneda evangelina Garcia 1965 F Date Provider Department Center 07/06/2024 SAIRA AQUINO [facility] Family History Problem Relation Age of Onset Coronary artery disease Father Diabetes Brother Family Status - Relation Status Age at Father Brother Normal [facility] Urine Cultureon 07-04-2024 Bacteria identified Cx Nom (U) ORGANISM: Escherichia coli (O:ESCCOL) [place] Count 20,000 Aerobic IVANNA Charge (NMIC56) SUSCEPTIBILITY ORGANISM: O:ESCCOL [...] RESISTANT TO ALL B-LACTAM DRUGS. PERFORMED BY: [address] [place] [address] PATHOLOGIST TUTORIAL LABORATORY SUPERVISOR KATHY FELDMAN M.D. Normal [facility] Comment on above: Performed By: #### C UU #### [address] [address] [facility] Telemedicineon 03-27-2024 Telemedicine [id number] Christopher Castaneda 1965 F Date Provider Department [facility] Family History Problem Relation Age of Onset Coronary artery disease Father Diabetes Brother Family Status - Relation Status Age at Father Brother Level of Service:13680 [place] OFFICE/OUTPATIENT ESTABLISHED MOD MDM 30 MIN Normal [facility] Capillary blood glucose lit urement by glucometer (mass/volume)Ordered By: Edd Ulloa on 09-27-2023 Glucose [Mass/Vol] 179 mg/dL Normal [facility] Comment on above: Random Glucose Refer ence Range is dependent on time and content of last meal. Glucose of more than 200 mg/dL in a nonstressed, ambulatory subject supports the diagnosis of Diabetes Mellitus. Result Comment: [facility] Glucose Reference Range is dependent on time and content of last meal. Glucose of more than 200 mg/dL in a nonstressed, ambulatory subject supports the diagnosis of Diabetes Mellitus. Performed By: #### G LULS #### Point of Care testing , Glucose Poct Glucometerson 0 09-27-2023 Commemt1 Glu2: Cleaned Meter Normal [facility] Comment on above: Result Comment: PERF ORMED BY: [facility] [address] [place] [address] PATHOLOGIST TUTORIAL LABORATORY SUPERVISOR KATHY FELDMAN M.D. Performed By: #### G LULS #### Point of Care testing , HCG ( test) Geri d Ql (U)Ordered By: Edd Ulloa on 09-27-2023 HCG ( test) Ql (U) Negative [facility] HCG,Urineon 09-27-2023 Beta HCG ( test) Ql (U) Negative Normal [facility] Comment on above: Result Comment: PERF ORMED BY: [facility] [address] [place] [address] PATHOLOGIST TUTORIAL LABORATORY SUPERVISOR KATHY FELDMAN M.D. Performed By: #### U [facility] #### [facility] [address] [id number] [facility] 09-27-2023 L -------- -------- Specimen: [id number] Received: 09/27/23 Status: CRISELDA Angel Num: [id number] Spec Type: Surgical Subm Dr: Edd Ulloa MD Tissues: A STOMACH FOR HP (ANTRAL HP) Procedures: HE/2, Gross/Micro L4, H PYLORI, IHC First AB -------- Age/ Patient Sex Location Account Attending Physician -------- Bora Castaneda 58/F [id number] Edd Ulloa MD -------- SPEC NUM: [id number] RECD: 09/27/23 STATUS: CRISELDA ANGEL NUM: [id number] AGUSTIN: 09/27/[address] [facility] [address]: Edd Ulloa MD ENTERED: 09/27/[address] [facility] [address]: SPEC TYPE: Surgical DEPT: S ORDERED: HE/2, Gross/Micro [...] microscopic examination confirms the diagnosis. CPT Codes 07183 -------- -------- Specimen: [id number] Received: 09/27/23 Status: CRISELDA Angel Num: [id number] Spec Type: Surgical Subm Dr: Edd Ulloa MD Tissues: A STOMACH FOR HP (ANTRAL HP) Procedures: HE/2, Gross/Micro L4, H PYLORI, IHC First AB -------- Patient: Bora Castaneda [id number] (Continued) -------- Signed (signature on file) Jessica Snyder MD 09/29/23 2241 Normal [facility] No Panel InformationOrdered By: Edd Ulloa on 09-27-2023 Bedside Glucose Comment Glu2: cleaned meter [facility] COVID/FLU/RSV RT-PCRon 07-09 SARS-CoV-2 (COVID-19) RNA MECCA+probe Ql (Unsp spec) Negative [facility] Other COVID/FLU/RSV RT-PCR Negative [facility] Other Quick Strepon 07-09-2023 S. pyogenes Org specific cx Ql (Throat) Negative [facility] Other Quick Strep [facility] Other Urinalysis - AUTOMATEDon Appearance (U) cloudy [facility] Other Bilirubin Ql (U) Negative [facility] Other Color (U) yellow [facility] Other Glucose Ql (U) >=1000 [facility] Other Hemoglobin Ql (U) small [facility] Other Ketones Ql (U) Negative [facility] Other Leukocyte esterase Test strip Ql (U) trace [facility] Other Nitrite Ql (U) Negative [facility] Other pH (U) 5.5 [pH] [facility] Other Protein Ql (U) Negative [facility] Other Specific gravity (U) [Rel density] 1.010 [facility] Other Urobilinogen (U) [Mass/Vol] 0.2 mg/dL [facility] Other Urinalysis - AUTOMATED [facility] Other Urine Cultureon 03-30-2023 Urine Culture >100,000 [facility] Other Urine Culture <16 Susceptible [facility] Other Urine Culture <8/4 Susceptible [facility] Other Urine Culture <8 Susceptible [facility] Other Urine Culture <4 Susceptible [facility] Other Urine Culture <2 Susceptible [facility] Other Urine Culture <1 Susceptible [facility] Other Urine Culture <0.25 Susceptible [facility] Other Urine Culture <0.5 Susceptible [facility] Other Urine Culture <32 Susceptible [facility] Other Urine Culture <0.5/9.5 Susceptible [facility] Other LIPID PROFILEon 01-08-2023 CHOL-HDL RATIO NORM SEE BELOW Normal [facility] Comment on above: Result Comment: 3.3 - 4.4 LOW RISK 4.4 - 7.1 AVERAGE RISK 7.1 - 11.0 MODERATE RISK >11.0 HIGH RISK Performed By: #### T SHRFT4, CMP, LIPID #### [facility] [address] [address] [address] Jacquelyn Robb Cholesterol [Mass/Vol] 253 mg/dL Critically high <=200 [facility] Comment on above: Performed By: #### T SHRFT4, CMP, LIPID #### [facility] [address] [address] [address] Jacquelyn Robb Cholesterol in HDL [Mass/Vol] 33 mg/dL Critically low 40-60 [facility] Comment on above: Performed By: #### T SHRFT4, CMP, LIPID #### [facility] [address] [place] [address] Dr. Jacquelyn Robb Cholesterol in LDL [Mass/Vol] 152.2 mg/dL Normal [facility] Comment on above: Performed By: #### T SHRFT4, CMP, LIPID #### [facility] [address] [address] [address] Jacquelyn Robb Cholesterol.total/C holesterol in HDL [Mass ratio] 7.7 {ratio} Normal [facility] Comment on above: Performed By: #### T SHRFT4, CMP, LIPID #### [facility] [address] [address] [address] Jacquelyn Robb HDL NORMAL > or = 60 mg/dl - LO W CARDIOVASCULAR RISK <40 mg/dl - HIGH CARDIOVASCULAR RISK Normal [facility] Comment on above: Performed By: #### T SHRFT4, CMP, LIPID #### [facility] [address] [address] [address] Jacquelyn Robb LDL CALC NORMAL SEE BELOW Normal [facility] Comment on above: Result Comment: <100 mg/dl OPTIMAL 100 - 129 mg/dl NEAR OR ABOVE OPTIMAL 130 - 159 mg/dl BORDERLINE HIGH 160 - 189 mg/dl HIGH >190 mg/dl VERY HIGH Performed By: #### T SHRFT4, CMP, LIPID #### [facility] [address] [address] [address] Jacquelyn Robb Triglyceride [Mass/Vol] 339 mg/dL Critically high <=150 [facility] Comment on above: Performed By: #### T SHRFT4, CMP, LIPID #### [facility] [address] [address] [address] Jacquelyn Robb VLDL CALC 67.8 mg/dL Normal [facility] Comment on above: Performed By: #### T CESARIOFT4, CMP, LIPID #### [facility] [address] [address] [address] Jacquelyn Robb MICROALB CREAT RATIO RANDOMo n 01-08-2023 mALB <1.3 Normal <=30.0 [facility] Comment on above: Performed By: #### M CRR ####[facility] [address] [address]Dr. Jacquelyn Robb MALB CR RATIO 34.9 mg/g Critically high 0.0-29.9 [facility] Comment on above: Performed By: #### M CRR ####[facility] [id number] [id number]. Jacquelyn Robb MALB CR RATIO RANGE SEE BELOW Normal [facility] Comment on above: Result Comment: NO M ICROALBUMINURIA 0-29 MG/G CLINICAL MICROALBUMINURIA 30-300 MG/G MACROALBUMINURIA >300 MG/G Performed By: #### M CRR ####[facility] [address] [address]DrYajaira Robb URINE CREAT 37.21 mg/dL Normal 20.00-300. 00 [facility] Comment on above: Performed By: #### M CRR ####[facility] [address] [address]DrYajaira Robb PROF 14(COMP METB)on 023 Albumin [Mass/Vol] 3.4 g/dL Normal 3.4-5.0 [facility] Comment on above: Performed By: #### T SHRFT4, CMP, LIPID #### [facility] [address] [address] [address] Jacquelyn Robb Albumin/Globulin [Mass ratio] 0.7 {ratio} Normal [facility] Comment on above: Performed By: #### T SHRFT4, CMP, LIPID #### [facility] [address] [place] [address] Dr. Jacquelyn Robb ALP [Catalytic activity/Vol] 107 U/L Normal 46-116 [facility] Comment on above: Performed By: #### T SHRFT4, CMP, LIPID #### [facility] [address] [place] [address] Dr. Jacquelyn Robb ALT [Catalytic activity/Vol] 32 U/L Normal 14-59 [facility] Comment on above: Performed By: #### T SHRFT4, CMP, LIPID #### [facility] [address] [place] [address] Dr. Jacquelyn Robb Anion gap [Moles/Vol] 14.2 mmol/L Normal [facility] Comment on above: Performed By: #### T SHRFT4, CMP, LIPID #### [facility] [address] [place] [address] Dr. Jacquelyn Robb AST [Catalytic activity/Vol] 15 U/L Normal 15-37 [facility] Comment on above: Performed By: #### T SHRFT4, CMP, LIPID #### [facility] [address] [place] [address] Dr. Jacquelyn Robb Bilirubin [Mass/Vol] 0.3 mg/dL Normal 0.2-1.0 [facility] Comment on above: Performed By: #### T SHRFT4, CMP, LIPID #### [facility] [address] [place] [address] Dr. Jacquelyn Robb Calcium [Mass/Vol] 9.3 mg/dL Normal 8.5-10.1 [facility] Comment on above: Performed By: #### T SHRFT4, CMP, LIPID #### [facility] [address] [place] [address] Dr. Jacquelyn Robb Chloride [Moles/Vol] 103 mmol/L Normal 98-107 [facility] Comment on above: Performed By: #### T SHRFT4, CMP, LIPID #### [facility] [address] [address] [address] Jacquelyn Robb CO2 [Moles/Vol] 26.7 mmol/L Normal 21.0-32.0 [facility] Comment on above: Performed By: #### T SHRFT4, CMP, LIPID #### [facility] [address] [address] [address] Jacquelyn Robb Creatinine [Mass/Vol] 0.87 mg/dL Normal 0.55-1.02 [facility] Comment on above: Performed By: #### T SHRFT4, CMP, LIPID #### [facility] [address] [address] [address] Jacquelyn Robb EGFR-AF ECUADOREAN >60 Normal >=60 [facility] Comment on above: Performed By: #### T SHRFT4, CMP, LIPID #### [facility] [address] [address] [address] Jacquelyn Robb EGFR-NON AF ECUADOREAN >60 Normal >=60 [facility] Comment on above: Performed By: #### T SHRFT4, CMP, LIPID #### [facility] [address] [address] [address] Jacquelyn Robb Globulin (S) [Mass/Vol] 4.8 g/dL Normal [facility] Comment on above: Performed By: #### T SHRFT4, CMP, LIPID #### [facility] [address] [address] [address] Jacquelyn Robb Glucose [Mass/Vol] 251 mg/dL Critically high 74-106 [facility] Comment on above: Performed By: #### T SHRFT4, CMP, LIPID #### [facility] [address] [address] [address] Jacquelyn Robb Potassium [Moles/Vol] 3.9 mmol/L Normal 3.5-5.1 [facility] Comment on above: Performed By: #### T SHRFT4, CMP, LIPID #### [facility] [address] [address] [address] Jacquelyn Robb Protein [Mass/Vol] 8.2 g/dL Normal 6.4-8.2 [facility] Comment on above: Performed By: #### T JESSICA4, CMP, LIPID #### [facility] [address] [place] [address] Dr. Jacquelyn Robb Sodium [Moles/Vol] 140 mmol/L Normal 136-145 [facility] Comment on above: Performed By: #### T JESSICA4, CMP, LIPID #### [facility] [address] [address] [address] Jacquelyn Robb Urea nitrogen [Mass/Vol] 12.0 mg/dL Normal 7.0-18.0 [facility] Comment on above: Performed By: #### T JESSICA4, CMP, LIPID #### [facility] [address] [place] [address] Dr. Jacquelyn Robb Urea nitrogen/Creatinine [Mass ratio] 13.8 mg/mg Normal [facility] Comment on above: Performed By: #### T ANTONELLA, CMP, LIPID #### [facility] [address] [place] [address] Dr. Jacquelyn Robb TSH W/ REFLEX TO FT4on 01-08 TSH 1.629 uIU/mL Normal 0.358-3.74 0 [facility] Comment on above: Performed By: #### T ANTONELLA, CMP, LIPID #### [facility] [address] [place] [address] Dr. Jacqu[facility] EXAMINATION: MRI BRA IN [facility], 11/10/2022 9:22 AM EST HISTORY: Headache , [...] EVELYN PACHECO Date: 2022-11-10 11:18 Normal [facility] CBC AUTO DIFFon 2022 BASO # 0.1 103/ul Normal 0.0-0.1 [facility] Comment on above: Performed By: #### C BC #### [facility] [address] [address] [address] Jacquelyn Robb Basophils/100 WBC (Bld) 0.4 % Normal 0.2-2.0 [facility] Comment on above: Performed By: #### C BC #### [facility] [address] [place] [address] Dr. Jacquelyn Robb EO # 0.3 103/ul Normal 0.0-0.7 [facility] Comment on above: Performed By: #### C BC #### [facility] [address] [address] [address] Jacquelyn Robb Eosinophils/100 WBC (Bld) 2.8 % Normal 0.9-7.0 [facility] Comment on above: Performed By: #### C BC #### [facility] [address] [place] [address] Dr. Jacquelyn Robb Erythrocyte distribution width (RBC) [Ratio] 16.7 % Critically high 11.0-15.0 [facility] Comment on above: Performed By: #### C BC #### [facility] [address] [place] [address] Dr. Jacquelyn Robb Hematocrit (Bld) [Volume fraction] 44.0 % Normal 36.0-48.0 [facility] Comment on above: Performed By: #### C BC #### [facility] [address] [place] [address] Dr. Jacquelyn Robb Hemoglobin (Bld) [Mass/Vol] 13.7 g/dL Normal 12.0-16.0 [facility] Comment on above: Performed By: #### C BC #### [facility] [address] [place] [address] Dr. Jacquelyn Robb IG # 0.04 10e3/ul Critically high 0.00-0.03 [facility] Comment on above: Performed By: #### C BC #### [facility] [address] [place] [address] Dr. Jacquelyn Robb IG % 0.3 % Normal 0.0-0.5 [facility] Comment on above: Performed By: #### C BC #### [facility] [address] [address] [address] Jacquelyn Robb LYMPH # 3.3 103/ul Normal 1.2-3.8 [facility] Comment on above: Performed By: #### C BC #### [facility] [address] [place] [address] Dr. Jacquelyn Robb Lymphocytes/100 WBC (Bld) 28.4 % Normal 20.5-60.0 [facility] Comment on above: Performed By: #### C BC #### [facility] [address] [place] [address] Dr. Jacquelyn Robb MANUAL DIFF REQ NO Normal [facility] Comment on above: Performed By: #### C BC #### [facility] [address] [place] [address] Dr. Jacquelyn Robb MCH (RBC) [Entitic mass] 25.8 pg Critically low 26.7-34.0 [facility] Comment on above: Performed By: #### C BC #### [facility] [address] [place] [address] Dr. aJcquelyn Robb MCHC (RBC) [Mass/Vol] 31.1 g/dL Normal 29.9-35.2 [facility] Comment on above: Performed By: #### C BC #### [facility] [address] [place] [address] Dr. Jacquelyn Robb MCV (RBC) [Entitic vol] 83.0 fL Normal 81.0-99.0 [facility] Comment on above: Performed By: #### C BC #### [facility] [address] [place] [address] Dr. Jacquelyn Robb MONO # 0.8 103/ul Normal 0.3-0.8 [facility] Comment on above: Performed By: #### C BC #### [facility] [address] [place] [address] Dr. Jacquelyn Robb Monocytes/100 WBC (Bld) 6.9 % Normal 1.7-12.0 [facility] Comment on above: Performed By: #### C BC #### [facility] [address] [place] [address] Dr. Jacquelyn Robb NEUT # 7.2 103/ul Critically high 1.4-6.5 [facility] Comment on above: Performed By: #### C BC #### [facility] [address] [place] [address] Dr. Jacquelyn Robb Neutrophils/100 WBC (Bld) 61.2 % Normal 43.0-75.0 [facility] Comment on above: Performed By: #### C BC #### [facility] [address] [place] [address] Dr. Jacquelyn Robb Platelet mean volume (Bld) [Entitic vol] 8.8 fL Critically low 9.5-13.5 [facility] Comment on above: Performed By: #### C BC #### [facility] [address] [place] [address] Dr. Jacquelyn Robb PLT 366 103/ul Normal 150-450 [facility] Comment on above: Performed By: #### C BC #### [facility] [address] [place] [address] Dr. Jacquelyn Robb RBC 5.30 106/ul Normal 4.20-5.40 [facility] Comment on above: Performed By: #### C BC #### [facility] [address] [place] [address] Dr. Jacquelyn Robb WBC 11.7 103/ul Critically high 4.0-11.0 [facility] Comment on above: Performed By: #### C BC #### [facility] [address] [place] [address] ABD/PELVIS WO CONon [...] RIA BLACKMON Date: 2022 14:08 Normal [facility] ER URINE PROFILEon 2 Clarity (U) CLEAR Normal CLEAR [facility] Comment on above: Performed By: #### FUAD AHUJA #### [facility] [address] [place] [address] Dr. Jacquelyn Robb Color (U) LT. YELLOW Normal YELLOW [facility] Comment on above: Performed By: #### FUAD AHUJA #### [facility] [address] [place] [address] Dr. Jacquelyn Robb ERUAHD A micrscopic examina tion will be performed if indicated. Normal [facility] Comment on above: Performed By: #### FUAD AHUJA #### [facility] [address] [place] [address] Dr. Jacquelyn Robb Glucose Ql (U) 1000 mg/dl Abnormal NEGATIVE [facility] Comment on above: Performed By: #### FUAD AHUJA #### [facility] [address] [place] [address] Dr. Jacquelyn Robb Hemoglobin Ql (U) TRACE-LYSED Abnormal NEGATIVE [facility] Comment on above: Performed By: #### ALDO AHUJARO #### [facility] [address] [place] [address] Dr. Jacquelyn Robb LEUKOCYTES Negative Normal NEGATIVE [facility] Comment on above: Performed By: #### ALDO AHUJARO #### [facility] [address] [place] [address] Dr. Jacquelyn Robb pH (U) 6.0 [pH] Normal 5-9 [facility] Comment on above: Performed By: #### ALDO AHUJARO #### [facility] [address] [place] [address] Dr. Jacquelyn Robb SPEC GRAVITY 1.015 Normal 1.005-<=1. 025 [facility] Comment on above: Performed By: #### ALDO AHUJARO #### [facility] [address] [place] [address] Dr. Jacquelyn Robb UA PROTEIN Negative Normal NEGATIVE/ TRACE [facility] Comment on above: Performed By: #### ALDO AHUJARO #### [facility] [address] [place] [address] Dr. Jacquelyn Robb UR MICRO IND INDICATED Normal [facility] Comment on above: Performed By: #### ALDO AHUJARO #### [facility] [address] [place] [address] Dr. Jacquelyn Robb Urobilinogen Qn (U) 0.2 {Matthew'U}/dL Normal 0.2 - 1. 0 [facility] Comment on above: Performed By: #### Abad BURDEN UMLAWRENCERO #### [facility] [address] [place] [address] Dr. Jacquelyn Robb Glucose - FINGER STICKon Glucose [Mass/Vol] 171 mg/dL [facility] Other PROF 14(COMP METB)on 022 Albumin [Mass/Vol] 3.4 g/dL Normal 3.4-5.0 [facility] Comment on above: Performed By: #### C MP #### [facility] [address] [address] [address] Jacquelyn Robb Albumin/Globulin [Mass ratio] 0.8 {ratio} Normal [facility] Comment on above: Performed By: #### C MP #### [facility] [address] [place] [address] Dr. Jacquelyn Robb ALP [Catalytic activity/Vol] 95 U/L Normal 46-116 [facility] Comment on above: Performed By: #### C MP #### [facility] [address] [place] [address] Dr. Jacquelyn Robb ALT [Catalytic activity/Vol] 27 U/L Normal 14-59 [facility] Comment on above: Performed By: #### C MP #### [facility] [address] [place] [address] Dr. Jacquelyn Robb Anion gap [Moles/Vol] 11.4 mmol/L Normal [facility] Comment on above: Performed By: #### C MP #### [facility] [address] [place] [address] Dr. Jacquelyn Robb AST [Catalytic activity/Vol] 17 U/L Normal 15-37 [facility] Comment on above: Performed By: #### C MP #### [facility] [address] [place] [address] Dr. Jacquelyn Robb Bilirubin [Mass/Vol] 0.3 mg/dL Normal 0.2-1.0 [facility] Comment on above: Performed By: #### C MP #### [facility] [address] [place] [address] Dr. Jacquelyn Robb Calcium [Mass/Vol] 9.0 mg/dL Normal 8.5-10.1 [facility] Comment on above: Performed By: #### C MP #### [facility] [address] [place] [address] Dr. Jacquelyn Robb Chloride [Moles/Vol] 103 mmol/L Normal 98-107 [facility] Comment on above: Performed By: #### C MP #### [facility] [address] [address] [address] Jacquelyn Robb CO2 [Moles/Vol] 29.5 mmol/L Normal 21.0-32.0 [facility] Comment on above: Performed By: #### C MP #### [facility] [address] [place] [address] [address] Jacquelyn Robb Creatinine [Mass/Vol] 0.67 mg/dL Normal 0.55-1.02 [facility] Comment on above: Performed By: #### C MP #### [facility] [address] [place] [address] [address] Jacquelyn Robb EGFR-AF ECUADOREAN >60 Normal >=60 [facility] Comment on above: Performed By: #### C MP #### [facility] [address] [place] [address] Dr. Jacquelyn Robb EGFR-NON AF ECUADOREAN >60 Normal >=60 [facility] Comment on above: Performed By: #### C MP #### [facility] [address] [place] [address] [address] Jacquelyn Robb Globulin (S) [Mass/Vol] 4.2 g/dL Normal [facility] Comment on above: Performed By: #### C MP #### [facility] [address] [place] [address] [address] Jacquelyn Robb Glucose [Mass/Vol] 149 mg/dL Critically high 74-106 [facility] Comment on above: Performed By: #### C MP #### [facility] [address] [place] [address] [address] Jacquelyn Robb Potassium [Moles/Vol] 3.9 mmol/L Normal 3.5-5.1 [facility] Comment on above: Performed By: #### C MP #### [facility] [address] [place] [address] Dr. Jacquelyn Robb Protein [Mass/Vol] 7.6 g/dL Normal 6.4-8.2 [facility] Comment on above: Performed By: #### C MP #### [facility] [address] [place] [address] Dr. Jacquelyn Robb Sodium [Moles/Vol] 140 mmol/L Normal 136-145 [facility] Comment on above: Performed By: #### C MP #### [facility] [address] [place] [address] Dr. Jacquelyn Robb Urea nitrogen [Mass/Vol] 10.0 mg/dL Normal 7.0-18.0 [facility] Comment on above: Performed By: #### C MP #### [facility] [address] [place] [address] Dr. Jacquelyn Robb Urea nitrogen/Creatinine [Mass ratio] 14.9 mg/mg Normal [facility] Comment on above: Performed By: #### C MP #### [facility] [address] [place] [address] Dr. Jacquelyn Robb URINE MICROSCOPIC ONLYon BACTERIA NONE SEEN Normal NONE SEEN [facility] Comment on above: Performed By: #### Abad BURDEN UMICRO #### [facility] [address] [place] [address] Dr. Jacquelyn Robb Bacteria identified Cx Nom (U) NOT INDICATED Normal [facility] Comment on above: Performed By: #### Abad BURDEN UMICRO #### [facility] [address] [place] [address] Dr. Jacquelyn Robb CAST NONE SEEN Normal NONE SEEN [facility] Comment on above: Performed By: #### E RUR, UMICRO #### [facility] [address] [place] [address] Dr. Jacquelyn Robb Crystals LM Nom (Urine sed) NONE SEEN Normal NONE SEEN [facility] Comment on above: Performed By: #### E RUR, UMICRO #### [facility] [address] [place] [address] Dr. Jacquelyn Robb Epithelial cells LM Ql (Urine sed) FEW Abnormal NONE SEEN /RARE [facility] Comment on above: Performed By: #### E RUR, UMICRO #### [facility] [address] [place] [address] Dr. Jacquelyn Robb MUCOUS NONE SEEN Normal NONE SEEN [facility] Comment on above: Performed By: #### E RUR, UMICRO #### [facility] [address] [place] [address] Dr. Jacquelyn Robb RBC 0-2 Normal 0-2 [facility] Comment on above: Performed By: #### E RUR, UMICRO #### [facility] [address] [place] [address] Dr. Jacquelyn Robb WBC NONE SEEN Normal NONE SEEN [facility] Comment on above: Performed By: #### Abad RUR, UMICRO #### [facility] [address] [place] [address] Dr. Jacquelyn Robb Urinalysis - AUTOMATEDon Bilirubin Ql (U) Negative Normal NEGATIVE [employer] Other Comment on above: Performed By: #### Abad BURDEN, UMICRO #### [facility] [address] [place] [address] Dr. Jacquelyn Robb Ketones Ql (U) Negative Normal NEGATIVE [employer] Other Comment on above: Performed By: #### Abad BURDEN, UMICRO #### [facility] [address] [place] [address] Dr. Jacquelyn Robb Nitrite Ql (U) Negative Normal NEGATIVE [employer] Other Comment on above: Performed By: #### Abad BURDEN, UMICRO #### [facility] [address] [place] [address] Dr. Jacquelyn Robb Appearance (U) yellow [employer] Other Color (U) clear [facility] Other Glucose Ql (U) 500 [employer] Other Hemoglobin Ql (U) Negative [employer] Other Leukocyte esterase Test strip Ql (U) Negative [facility] Other pH (U) 5.5 [pH] [facility] Other Protein Ql (U) Negative [employer] Other Specific gravity (U) [Rel density] 1.015 [facility] Other Urobilinogen (U) [Mass/Vol] 0.20 mg/dL [facility] Other Urinalysis - AUTOMATED [facility] Other PROF CHEM 8 (BAS METB)on Anion gap [Moles/Vol] 13.0 mmol/L Normal [facility] Comment on above: Performed By: #### B MP #### [facility] [address] [place] [address] Dr. Jacquelyn Robb Calcium [Mass/Vol] 9.1 mg/dL Normal 8.5-10.1 [facility] Comment on above: Performed By: #### B MP #### [facility] [address] [place] [address] [address] Jacquelyn Robb Chloride [Moles/Vol] 105 mmol/L Normal 98-107 [facility] Comment on above: Performed By: #### B MP #### [facility] [address] [place] [address] [address] Jacquelyn Robb CO2 [Moles/Vol] 27.8 mmol/L Normal 21.0-32.0 [facility] Comment on above: Performed By: #### B MP #### [facility] [address] [place] [address] [address] Jacquelyn Robb Creatinine [Mass/Vol] 0.63 mg/dL Normal 0.55-1.02 [facility] Comment on above: Performed By: #### B MP #### [facility] [address] [place] [address] [address] Jacquelyn Robb EGFR-AF ECUADOREAN >60 Normal >=60 [facility] Comment on above: Performed By: #### B MP #### [facility] [address] [place] [address] [address] Jacquelyn Robb EGFR-NON AF ECUADOREAN >60 Normal >=60 [facility] Comment on above: Performed By: #### B MP #### [facility] [address] [place], [place] [address] Dr. Jacquelyn Robb Glucose [Mass/Vol] 136 mg/dL Critically high 74-106 [facility] Comment on above: Performed By: #### B MP #### [facility] [address] [place], [place] [address] Dr. Jacquelyn Robb Potassium [Moles/Vol] 3.8 mmol/L Normal 3.5-5.1 [facility] Comment on above: Performed By: #### B MP #### [facility] [address] [place], [place] [address] Dr. Jacquelyn Robb Sodium [Moles/Vol] 142 mmol/L Normal 136-145 [facility] Comment on above: Performed By: #### B MP #### [facility] [address] [place] [address] [address] Jacquelyn Robb Urea nitrogen [Mass/Vol] 9.0 mg/dL Normal 7.0-18.0 [facility] Comment on above: Performed By: #### B MP #### [facility] [address] [place] [address] [address] Jacquelyn Robb Urea nitrogen/Creatinine [Mass ratio] 14.3 mg/mg Normal [facility] Comment on above: Performed By: #### B MP #### [facility] [address] [place] [address] [address] Jacquelyn Robb XR knee RT 4V*on 11-19-2021 XR knee RT 4V* [facility] 1-800-DOCTORS Other XR knee RT 4V* [facility] [employer] Other XR knee RT 4V* [address] [place] [address] [employer] Other XR knee RT 4V* [place] [address] [facility] [employer] Other XR knee RT 4V* XRay Report [employer] Other XR knee RT 4V* Signed [employer] Other XR knee RT 4V* Patient: Christopher Castaneda MR#: [id number] [facility] Other XR knee RT 4V* 7309 [employer] Other XR knee RT 4V* : 1965 Acct:[id number] [facility] Other XR knee RT 4V* Age/Sex: 56 / F ADM Date: 11/19/21 [facility] Other XR knee RT 4V* Loc: XDUCLY Room: Ty pe: REG CLI [facility] Other XR knee RT 4V* Attending Dr: Freda Menjivar [facility] Other XR knee RT 4V* Ordering [facility] Other XR knee RT 4V* Date of Service: 11/19/21 [facility] Other XR knee RT 4V* [address]) XR/XR knee RT 4V*: RIGHT KNEE PAIN [facility] Other XR knee RT 4V* Copies to: Jose MENJIVAR [facility] Other XR knee RT 4V* 4 views RIGHT knee p louise film [facility] Other XR knee RT 4V* COMPARISON:None [facility] Other XR knee RT 4V* HISTORY:RIGHT knee p ain and swelling for 3 days. [facility] Other XR knee RT 4V* No fracture, disloca tion or focal soft tissue abnormality seen. No supra patellar effusion [facility] Other XR knee RT 4V* identified. Patellar enthesophytes noted. [facility] Other XR knee RT 4V* X R/XR knee RT 4V* [facility] Other XR knee RT 4V* IMPRESSION:No acute findings [facility] Other XR knee RT 4V* Impression dictated by: Claudio Vizcarra M.D.11/19/2021 5:58 PM [facility] Other XR knee RT 4V* Dictation Location: [place] [address] [facility] Other XR knee RT 4V* Transcribed By: PWS 11/19/21 1758 [facility] Other XR knee RT 4V* Dictated By: Arcadio Vizcarra DO 11/19/21 [facility] Other XR knee RT 4V* Signed By: [employer] Other XR knee RT 4V* 11/19/21 1755 [employer] Other XR-KNEE LEFT 1-2 VIEWSon XR-KNEE LEFT [...] by: Subhash العراقي MD, 01/15/2021 2:37 PM [facility] XR-KNEE RIGHT 1-2 VIEWSon XR-KNEE RIGHT 1-2 [...] Subhash العراقي MD, 01/15/2021 2:37 PM Normal [facility] Cardiovascular Lab Reporton 04-12-2017 Cardiovascular Lab Report [facility] Patient Name: [facility] MR #: [id number] Physician: Kalpana Barnett,Department of M.D.Medicine Service Date: 04/08/2017Division of Birthdate: 1965Cardiology Room #: CCAdult CardiovascularServicesUn[facility] [place], [place] [address] Fax Cardiovascular Laboratory ReportFINAL IMPRESSIONS1.Mild disease of [...] etc.4.Follow up with Dr. [facility] in the next 2-4weeks.5.Follow up with Dr. [...] common femoral vein was obtained and a 6-Botswanan 11-cmsheath inserted without difficulty. This was repeated [...] the proximal left anterior descending wasencountered.Therefore, a 6-Botswanan XB 3.5 guide catheter was advanced in and coaxiallyengaged into the left main coronary ostium over a J-wire. Intracoronarynitroglycerin was administered. Repeat angiography showed resolution of thesuspected spasm. The catheter was removed.An angled pigtail catheter was used for left heart catheterization, leftventriculography, and aortic pullback pressure measurements. Afterreviewing the images and data, it was elected to conclude the procedure.A 6-Botswanan MynxGrip closure device was deployed per protocol achievingoptimal hemostasis. Overall, the patient tolerated the procedure well.There were no overt complications. [facility].FINDINGSHemodynami cs:RA mean of 6.RV [...] and managementstrategies are outlined above.Electronically Signed by:Kalpana Barnett M.D. 05/11/2017 02:36 P Kalpana Barnett M.D.Date Dict: 04/08/2017//Kalpana Barnett M.D.Date Trans: 04/12/2017 01:56 P/[id number]/cc: Bj Marks M.D. [facility] [address] [address], N.P. [address] [place] [address] Normal [facility] Vital Signs Date Time Vital Sign Value Performing Clinician Facility 07-04-2024 13:34-0400 Body height 162.56 cm SATHISH Hatfield Work Phone: [facility] 07-04-2024 13:34-0400 Body mass index (BMI) [Ratio] 42.8 kg/m2 SATHISH Hatfield Work Phone: [facility] 07-04-2024 13:34-0400 Body temperature 98.2 [degF] INTEGRATIVE MEDICINE PHYSICIAN Ayleen Alysia Work Phone: [facility] 07-04-2024 13:34-0400 Body weight 113.17 kg INTEGRATIVE MEDICINE PHYSICIAN Ayleen Alyisa Work Phone: [facility] 07-04-2024 13:34-0400 Diastolic blood pressure 79 mm[Hg] INTEGRATIVE MEDICINE PHYSICIAN Ayleen Alysia Work Phone: [facility] 07-04-2024 13:34-0400 Heart rate 107 /min INTEGRATIVE MEDICINE PHYSICIAN Ayleen Alysia Work Phone: [facility] 07-04-2024 13:34-0400 Respiratory rate 18 /min INTEGRATIVE MEDICINE PHYSICIAN Ayleen Alysia Work Phone: [facility] 07-04-2024 13:34-0400 SaO2% (BldA) [Mass fraction] 95 % INTEGRATIVE MEDICINE PHYSICIAN Ayleen Alysia Work Phone: [facility] 07-04-2024 13:34-0400 Systolic blood pressure 126 mm[Hg] INTEGRATIVE MEDICINE PHYSICIAN Ayleen Alysia Work Phone: [facility] 09-27-2023 09:01-0500 Diastolic blood pressure 76 mm[Hg] INTEGRATIVE MEDICINE PHYSICIAN Linda Myerholtz Work Phone: [facility] 09-27-2023 09:01-0500 Heart rate 88 /min INTEGRATIVE MEDICINE PHYSICIAN Linda Myerholtz Work Phone: [facility] 09-27-2023 09:01-0500 Respiratory rate 16 /min INTEGRATIVE MEDICINE PHYSICIAN Linda Myerholtz Work Phone: [facility] 09-27-2023 09:01-0500 SaO2% (BldA) [Mass fraction] 96 % INTEGRATIVE MEDICINE PHYSICIAN Linda Myerholtz Work Phone: [facility] 09-27-2023 09:01-0500 Systolic blood pressure 139 mm[Hg] SATHISH Wood Work Phone: [facility] 09-27-2023 07:20-0500 Body height 162.56 cm SATHISH Wood Work Phone: [facility] 09-27-2023 07:20-0500 Body weight 117.93 kg SATHISH Wood [facility] [facility] 07-09-2023 09:35-0400 Body height 162.56 cm Cyndi Samina Other [facility] 07-09-2023 09:35-0400 Body mass index (BMI) [Ratio] 44.01 kg/m2 Cyndi Samina Other [facility] 07-09-2023 09:35-0400 Body temperature 97.9 [degF] Cyndi Cardenasmond Other [facility] 07-09-2023 09:35-0400 Body weight 116.3 kg Cyndi Cardenasmond Other [facility] 07-09-2023 09:35-0400 Diastolic blood pressure 70 mm[Hg] Cyndi Samina Other [facility] 07-09-2023 09:35-0400 Respiratory rate 20 /min Cyndi Samina Other [facility] 07-09-2023 09:35-0400 SaO2% (BldA) [Mass fraction] 92 % Cyndi Samina Other [facility] 07-09-2023 09:35-0400 Systolic blood pressure 135 mm[Hg] Cyndi Haas Other [facility] 03-30-2023 09:20-0400 Body height 162.56 cm Cyndi Cardenasmond Other [facility] 03-30-2023 09:20-0400 Body mass index (BMI) [Ratio] 45.52 kg/m2 Cyndi Samina Other [facility] 03-30-2023 09:20-0400 Body temperature 98 [degF] Cyndi Samina Other [facility] 03-30-2023 09:20-0400 Body weight 120.29 kg Cyndi Cardenasmond Other [facility] 03-30-2023 09:20-0400 Respiratory rate 18 /min Cyndi Haas Other [facility] 03-30-2023 09:20-0400 SaO2% (BldA) [Mass fraction] 96 % Cyndi Haas Other [facility] 2022 12:05-0400 Body height 162.56 cm Cyndi Cardenasmond Other [facility] 2022 12:05-0400 Body mass index (BMI) [Ratio] 45.31 kg/m2 Cyndi Samina Other [facility] 2022 12:05-0400 Body temperature 97 [degF] Cyndi Samina Other [facility] 2022 12:05-0400 Body weight 119.75 kg Cyndi Haas Other [facility] 2022 12:05-0400 Diastolic blood pressure 70 mm[Hg] Cyndi Haas Other [facility] 2022 12:05-0400 Respiratory rate 18 /min Cyndi Haas Other [facility] 2022 12:05-0400 SaO2% (BldA) [Mass fraction] 97 % Cyndi Haas Other [facility] 2022 12:05-0400 Systolic blood pressure 116 mm[Hg] Cyndi Haas Other [facility] 11-19-2021 18:00-0500 Body height 162.56 cm Hanh Franklinault Other [facility] 11-19-2021 18:00-0500 Body mass index (BMI) [Ratio] 45.62 kg/m2 Hanh Sofia Other [facility] 11-19-2021 18:00-0500 Body temperature 98.5 [degF] Hanh Sofia Other [facility] 11-19-2021 18:00-0500 Body weight 120.57 kg Hanh Sofia Other [facility] 11-19-2021 18:00-0500 Diastolic blood pressure 95 mm[Hg] Hanh Sofia Other [facility] 11-19-2021 18:00-0500 Respiratory rate 18 /min Hanh Menjivar Other [facility] 11-19-2021 18:00-0500 SaO2% (BldA) [Mass fraction] 98 % Hanh Menjivar Other [facility] 11-19-2021 18:00-0500 Systolic blood pressure 158 mm[Hg] Hanh Menjivar Other [facility] Other Encounters Encounter Date Encounter Type Care Provider Facility Start: 07-06-2024 End: 07-06-[address] [facility] Start: 07-04-2024 End: 07-04-2024 ambulatory Ayleen Hatfield Facility:[facility] Start: 07-04-2024 End: 07-04-2024 Departed Referred SATHISH Hatfield Work Phone: [facility] [place] Work Phone: Start: 07-04-2024 End: 07-04-2024 Patient encounter procedure SATHISH Hatfield Work Phone: [facility] Work Phone: Start: 03-27-2024 End: 03-27-[address] [facility] Start: 09-27-2023 End: 09-27-2023 Admission to same day surgery center SATHISH Wood Work Phone: [facility] Work Phone: Start: 09-27-2023 End: 09-27-2023 ambulatory SATHISH Wood Work Phone: [facility] Work Phone: Start: 08-22-2023 End: 08-22-2023 ambulatory Baltazar Askew Other [facility] Start: 08-22-2023 Office outpatient ne w 30 minutes Baltazar Askew [facility] Start: 07-09-2023 End: 07-09-2023 ambulatory Cyndi Samina Other [facility] Start: 07-09-2023 Office outpatient visit 15 minutes Cyndi Samina [facility] Start: 03-30-2023 Office outpatient visit 15 minutes Cyndi Samina [facility] Start: 03-30-2023 End: 03-30-2023 ambulatory Cyndi Samina Other [facility] Start: 03-30-2023 End: 03-30-2023 Departed Referred PRACTICE CLINICIAN-C Cyndi Haas Work Phone: [facility] [place] Work Phone: Start: 01-08-2023 End: 01-09-[address] DOCTOR OLIVEIRA Facility:[facility] Start: 11-10-2022 End: 11-11-[address] DOCTOR OLIVEIRA Facility:[facility] Start: 2022 End: 2022 ambulatory AKHIL SALGUERO . [place] [facility] Other Start: 2022 Office outpatient visit 15 minutes Cyndi Samina [facility] Start: 04-16-2022 End: 04-17-2022 ambulatory HAL REYES Facility:[facility] Start: 11-19-2021 End: 11-19-2021 ambulatory Hanh Menjivar Other [facility] Start: 11-19-2021 Office outpatient ne w 20 minutes Hanh Menjivar [facility] Start: 04-08-2017 End: 04-09-2017 Ambulatory KALPANA BARNETT Facility:[facility] Start: 04-04-2017 End: 04-05-2017 Ambulatory DEFAULT PHYSICIAN Facility:[facility] Procedures Date Procedure Procedure Detail Performing Clinician Start: 09-27-2023 Esophagogastroduodenoscopy SATHISH Wood Work Phone: Start: 03-30-2023 Piperacillin/tazobactam Cyndi Haas Other Plan of Treatment Date Care Activity Detail Author Start: 07-04-2024 Bacteria identified in Urine by Culture Urine Culture [facility] Start: 07-04-2024 Urine culture [facility] Start: 09-27-2023 [facility] Start: 03-30-2023 Bacteria identified in Urine by Culture [facility] Patient Education Esophageal Dilation [facility] Work Phone: Payers Date Payer Category Payer Self-pay [id number] 1965 Unknown [id number] 2.16.84 [id number] 1965 Unknown [id number] 2.16.84 [id number] 1967 Unknown [id number] 2.16.84 [id number] 1965 Unknown [id number] 2.16.84 [id number] 1957 Medicaid [id number] 1957 Unknown [id number] Unknown Unknown [id number] 2.16.8 [id number] Unknown [id number] 2.16.8 [id number] Social History Date Type Detail Facility Unknown if ever smoked [facility] Other Sex Assigned At Sex Assigned At Bir th [facility] Start: 01-03-2018 End: 09-27-2023 Tobacco smoking status NHIS Smoker (finding) [facility] Start: 1965 Sex Assigned At Female F [facility] Medical Equipment Procedure Code Equipment Code Equipment Origin al Text Equipment Identifier Dates Blood Sugar Diagnostic (True Metrix Glucose Test Strip) strip Start: 07-04-2024 Goals Date Patient Goal Desired Activity /State Clinical Notes 02-15-2017 to 07-06-2024 Note Date & Type Note Facility 07-06-2024 Note . Cardiology Follow Up Progress Note Chief Complaint: follow up HPI: Bora Castaneda is a 59 y.o. female who has a past medical history of CHF (congestive heart failure) ([facility]), COPD (chronic obstructive pulmonary disease) ([facility]), GERD (gastroesophageal reflux disease), Hypertension, and Sleep apnea. Patient was last seen for a telemedicine appointment in March. At the time, patient reported an episode of syncope, which sounds vasovagal in nature. 30-day event monitor and echocardiogram were ordered. Echo demonstrated that her EF, which had previously normalized, was reduced to 35 to 40%. She presents today for follow-up. She reports several episodes of chest discomfort, which she characterized as acid reflux waking her up in the middle of the night radiating into both her jaws and ears. She has not been taking her medications as prescribed. She denies any lower extreme edema, orthopnea, paroxysmal nocturnal dyspnea. She has not had any recurrence of her syncope. Cardiology ROS: 10 point ROS is performed and is negative unless otherwise specified in HPI. Medications Current Outpatient Medications on File Prior to Visit Medication Sig Dispense Refill albuterol (Ventolin HFA) 90 mcg/actuation inhaler Inhale 2 puffs every 6 (six) hours if needed. atorvastatin (Lipitor) 20 mg tablet Take 1 [...] TABLET BY MOUTH WITH meal once DAILY metoprolol succinate XL (Toprol-XL) 25 mg 24 hr tablet Take 1 tablet (25 mg) by mouth in the morning. Do not crush or chew. 90 tablet 3 montelukast (Singulair) 10 mg tablet Take 1 [...] injector INJECT 0.75mg SUBCUTANEOUSLY ONCE A WEEK [DISCONTINUED] aspirin 81 mg chewable tablet Chew 1 tablet (81 mg) once daily as directed. 90 tablet 3 cetirizine (ZyrTEC) 10 mg tablet Take 1 tablet by mouth in the morning. ibuprofen 800 mg tablet TAKE 1 TABLET BY MOUTH WITH FOOD OR MILK THREE TIMES DAILY NEEDED valACYclovir (Valtrex) 1 gram tablet Take 1 tablet by mouth in the morning, at noon, and at bedtime. [DISCONTINUED] carvedilol CR (Coreg CR) 80 mg 24 hr capsule Take 1 capsule (80 mg) by mouth once daily as directed. (Patient not taking: Reported on 03/27/2024) 90 capsule 3 [DISCONTINUED] valsartan (Diovan) 160 mg tablet Take 1 tablet (160 mg) by mouth in the morning. (Patient not taking: Reported on 07/06/2024) 90 tablet 3 No current facility-administered medications on file prior to visit. Allergies Ranitidine hcl Physical Exam Physical Exam VITAL SIGNS: BP 128/88 Pulse (!) 111 Ht 1.626 m (5' 4 ) Wt 112 kg (247 lb) SpO2 95% BMI 42.40 kg/m??? Constitutional: Well developed, Well nourished, No acute distress, Non-toxic appearance. HENT: Normocephalic, Atraumatic, Bilateral external ears have normal appearance, Bilateral TMs clear, Oropharynx moist, No oral or pharyngeal exudates, Nose appears normal, nares are patent. Eyes: PERRLA, EOMI, Conjunctiva normal, No discharge. Neck: Normal range of motion, No tenderness, Supple, No stridor. No cervical lymphadenopathy noted. Cardiovascular: Normal heart rate, Normal rhythm, No murmurs, No rubs, No gallops. Thorax & Lungs: Normal breath sounds, No respiratory distress, No wheezing, No chest tenderness to palpation. Abdomen: Bowel sounds normal, Soft, Nontender, No masses, No pulsatile masses. Skin: Warm, Dry, No erythema, No rash. Back: No tenderness, No CVA tenderness. Extremities: Intact distal pulses, No edema, No tenderness, No cyanosis, No clubbing. Musculoskeletal: Good range of motion in all major joints with 5/5 muscle strength in all muscle groups, No tenderness to palpation or major deformities noted. Neurologic: Alert & oriented x 3, Normal motor function in all major muscle groups, Normal sensory function to all major dermatomes, No focal deficits noted. Psychiatric: Affect normal, Judgment normal, Mood normal. Assessment/Plan: Bora Castaneda is a 59 y.o. female with Acute on chronic systolic heart failure (CMS/HCC) Essential hypertension Angina pectoris, unstable ([facility]) Tachycardia Patient has been very noncompliant with her medications, likely contributing to reduction in her ejection fraction. However, given her episodes concerning for unstable dominick (more content not included)... [facility] 03-27-2024 Note . Cardiology Follow Up Progress Note Chief Complaint: follow up HPI: Bora Castaneda is a 58 y.o. female who has a past medical history of CHF (congestive heart failure) (CMS/HCC), COPD (chronic obstructive pulmonary disease) (CMS/HCC), GERD (gastroesophageal reflux disease), Hypertension, and Sleep apnea. That has a telemedicine visit scheduled today for follow up. The patient was notified that using 3rd constitution party telecommunication application (e.g., [employer]) is not HIPPA compliant and may carry [...] Chronic heart failure with preserved ejection fraction (CMS/HCC) Tachycardia Patient has not been taking any [...] needed Francine Schneider (more content not included)... [facility] 09-27-2023 Procedure note [facility] 08-22-2023 Evaluation note Encounter Date Diagnosis Assessment [...] her back that is throbbing in nature [facility] 10-14-2023 Evaluation note* Encounter Date Diagnosis [...] B02.9) Shingles home care material was printed [facility] 07-05-2023 Evaluation note* Encounter Date Diagnosis [...] fever Mar, Hematuria, unspecified (ICD-10 - R31.9) [facility] 09-28-2022 Evaluation note* Encounter Date Diagnosis Assessment Notes Treatment Notes Treatment Clinical Notes May, Abdominal pain of unknown etiology (ICD-10 - R10.9) Abdominal pain: adult home care material was printed Go directly to the ER for further evaluation of your abdominal pain. May, Glucosuria (ICD-10 - R81) [facility] 02-24-2022 Evaluation note* Encounter Date Diagnosis [...] carb intake to help balance out increase [facility] 05-23-2017 History general Narrative - Reported* Type Description [...] History C SECTION X3 Surgical History COLONOSCOPY 2014 Surgical History heart catheterization Hospitalization History Weak Heart 2016 [facility] Other Evaluation noteNo assessment information available [facility] Work Phone: Evaluation note* Diagnosis Onset Date Resolution Status Dysphagia acute [facility] Work Phone: Evaluation note* Diagnosis Onset Date Resolution Status Dysuria acute [facility] Work Phone: Hospital Discharge instructions Additional Instructions [...] if you have any problems. -Office number [phone] Work Phone: Summary Purpose Family History Relationship Condition Age at Onset Recorded Date/T jose roberto father Myocardial infarction Unknown brother Diabetes mellitus Unknown Relationship Condition Age at Onset Recorded Date/T jose roberto father Myocardial infarction Unknown brother Diabetes mellitus Unknown father Heart disease Unknown Advance Directives Advance Directive Response Recorded Date/ Time Advance Directives No May 10:01am Advance Directive Response Recorded Date/ Time Advance Directives No May 9:01am Chief Complaint and Reason for Visit Chief Complaint GERD, Abdominal Pain Reason for Visit Dysphagia Chief Complaint Possible UTI Dysuria Reason for Visit Dysuria Additional Source Comments INFORMATION SOURCE (unrecogn ized section and content) DATE CREATED AUTHOR 03/22/2018 [facility] DATE CREATED AUTHOR AUTHOR'S ORGANIZ ATION 01/22/2021 [facility] DATE CREATED AUTHOR AUTHOR'S ORGANIZ ATION 01/13/2023 [facility] DATE CREATED AUTHOR AUTHOR'S ORGANIZ ATION 07/07/[address] [facility] DATE CREATED AUTHOR AUTHOR'S ORGANIZ ATION 07/09/2024 [facility] REASON FOR VISIT (unrecogniz ed section and content) RIGHT KNEE PAIN, SWELLING TH AT STARTED 3 DAYS AGOPAIN IN LOW ABDBLADDER INFECTIONBLADDER INFECTIONBLADDER INFECTIONCOUGH, CONGESTION, SORE THROAT, GOING TO CHESTPT IS HERE FOR CONSULT FOR GERD Care Teams (unrecognized sec tion and content) Team Status: Inactive Member Role Status Dates Cyndi Haas NP-C Attending Provider Active Team Status: Active Member Role Status Dates Linda Wood APRN PRACTICE CLINICIAN-C Primary Care Provide r Active Team Status: Inactive Member Role Status Dates Edd Ulloa MD Attending Provider Active Linda Wood APRN PRACTICE CLINICIAN-C Primary Care Provide r Active Team Status: Inactive Member Role Status Dates Ayleen Hatfield APRN Attending Provider Active S tart: July 04, 2024 End: July 04, 2024 Jessica Marcos APRN PRACTICE CLINICIAN-C Primary Care Provider Act machelle Start: July 04, 2024 End: July 04, 2024 Team Status: Inactive Member Role Status Dates Ayleen Hatfield APRN Attending Provider Active S tart: July 04, 2024 End: July 04, 2024 Goals (unrecognized section and content) Goals may [...] BE BASED ON THE PRIMARY CLINICAL RECORDS. [employer] [facility]. provides no warranty or guarantee of the accuracy or completeness of information in this document.
[2024-07-20 13:36] LABS: Basophils Percent Auto 0.4 % (0.2-2.0); Eosinophils Absolute Auto 0.3 10^3/uL (0.0-0.7); Eosinophils Percent Auto 2.4 % (0.9-7.0); Hematocrit 44.6 % (36.0-48.0); Hemoglobin 14.2 g/dL (12.0-16.0); Immature Granulocytes Abs Auto 0.02 10^3/uL (0.00-0.03); Immature Granulocytes Pct Auto 0.2 % (0.0-0.5); Lymphocytes Absolute Auto 3.9 10^3/uL (1.2-3.8); Lymphocytes Percent Auto 37.1 % (20.5-60.0); Mean Corpuscular HGB Conc 31.8 g/dL (29.9-35.2); Mean Platelet Volume 8.8 fL (9.5-13.5); Monocytes Absolute Auto 0.7 10^3/uL (0.3-0.8); Monocytes Percent Auto 6.4 % (1.7-12.0); Neutrophils Absolute Auto 5.7 10^3/uL (1.4-6.5); Neutrophils Percent Auto 53.5 % (43.0-75.0); Platelet Count 379 10^3/uL (150-450); Red Blood Count 5.25 10^6/uL (4.20-5.40); Red Cell Distribution Width 14.4 % (11.0-15.0); White Blood Count 10.6 10^3/uL (4.0-11.0)
[2024-07-20 13:45] LABS: Anion Gap 12.8; BUN Creatinine Ratio 10.8; Calcium 9.3 mg/dL (8.5-10.1); Chloride 106 mmol/L (98-107); Estimated GFR (African America >60 (>=60 mL/min/1.73m^2); Estimated GFR (Non-African Ame >60 (>=60 mL/min/1.73m^2); Glucose 163 mg/dL (74-106); Potassium 3.8 mmol/L (3.5-5.1); Sodium 144 mmol/L (136-145)
== END 2024-07-20 13:13 | disposition home or self-care (01) ==
LOC: LAB 13:12
PROVIDERS: PCP Nurse Practitioner Family; Visit Provider Internal Medicine Cardiovascular Disease
DX: Z01.812 Encounter for preprocedural laboratory examination (principal); R60.1 Generalized edema
CPT/HCPCS: 36415; 80048; 85025

== ENCOUNTER 2025-03-09 06:31 | Outpatient (OUT) | payer OTHER, SELFPAY ==
--- OUTSIDE RECORDS SUMMARY | 2024-11-07 10:00 | XMS_ITS ---
Author Organization [facility] Address [address] [place] [address] Care Team Providers Care Frame Builder Name Role Phone Margareth Del Cid Primary Care Provider Melissa Carnes Unavailable [phone] Jessica Marcos [phone] REASON FOR VISIT 3 month f/u DM, A1C Encounters Encounter Location Date Provider Diagnosis [facility] [address] [place] [address] 11/07/2024 Jessica Marcos Plan Of Treatment No Information Progress Notes * GEORGIE GARCÍASUJEYB: 7 (59 yo F)Acc No.[id number]:11/07/2024 Progress Notes Patient: BORA DAUGHERTY Provider: Tien Marcos :1965 A ge:59 Y S ex:Female Date:11/07/2024 Address:[address] [place] [address] [address] , [id number] Pcp:Margareth Del Cid Subjective: * Chief Complaints: * 1 . 3 month f/u DM, A1C. * Medical History: Objective: * Vitals: Assessment: Plan: * Treatment: * Images: * Electronic signature of Hua Marcos CNP on 03/09/2025 at 06:37 AM EDT Sign off status: Pending * Provider: Tien Marcos Date: 0 11/07/2024 Generated for Printi ng/Faxing/eTransmitting on: 0 03/09/2025 06:37 AM EDT
--- OUTSIDE RECORDS SUMMARY | 2025-02-11 09:45 | XMS_ITS ---
Author Organization [facility] Address [address] [place] [address] Care Team Providers Care Die Sinking Machine Operator Name Role Phone Margareth Del Cid Primary Care Provider Melissa Carnes Unavailable [phone] Jessica Marcos [phone] REASON FOR VISIT 3 month f/u DM, A1C Encounters Encounter Location Date Provider Diagnosis [facility] [address] [place] [address] 02/11/2025 Jessica Marcos Plan Of Treatment No Information Progress Notes * GEORGIE GARCÍASUJEYB: 7 (59 yo F)Acc No.[id number]:02/11/2025 Progress Notes Patient: BORA DAUGHERTY Provider: Tien Marcos :1965 A ge:59 Y S ex:Female Date:02/11/2025 Address:[address] [place] [address] [address] , [id number] Pcp:Margareth Del Cid Subjective: * Chief Complaints: * 1 . 3 month f/u DM, A1C. * Medical History: Objective: * Vitals: Assessment: Plan: * Treatment: * Images: * Electronic signature of Hua Marcos CNP on 03/09/2025 at 06:36 AM EDT Sign off status: Pending * Provider: Tien Marcos Date: 02/11/2025 Generated for Printi ng/Faxing/eTransmitting on: 0 03/09/2025 06:36 AM EDT
--- OUTSIDE RECORDS SUMMARY | 2025-03-09 06:36 | XMS_ITS | Clinical Summary ---
Author Organization [facility] Address [address] [place] [address] Care Team Providers Care Loading Shovel Oiler Name Role Phone Unavailable Primary Care Provider Unavailabl e Social History Tobacco Use Types Packs/Day Years Used Date Smoking Tobacco: Never Assessed Comments Unknown Sex and Gender Information Value Date Recorded Sex Assigned at Not on file Legal Sex Female 6:45 PM EDT Gender Identity Not on file Sexual Orientation Not on file Last Filed Vital Signs Vital Sign Reading Time Taken Comments Blood Pressure 142/75 10/28/2022 12:00 PM EST Pulse - - Temperature - - Respiratory Rate - - Oxygen Saturation - - Inhaled Oxygen Concentration - - Weight 120 kg (264 lb) 10/28/2022 12:00 PM EST Height 165.1 cm (5' 5 ) 10/28/2022 12:00 PM EST Body Mass Index 43.93 10/28/2022 12:00 PM EST Plan of Treatment Health Maintenance Due Date Last Done Comments CT Colonography 1967 Colonoscopy 1967 Colorectal Cancer Screening 1965 FIT-DNA 1967 FIT 1967 FOBT 1965 Sigmoidoscopy 1967 Pap Smear 1988 Cervical Cancer Screening 1997 HPV/Cotest 1997 Mammogram 2007 Influenza Vaccine (Season Ended) 2025 09/04/2022, 06/25/2021, 07/15/2020
--- OUTSIDE RECORDS SUMMARY | 2025-03-09 06:36 | XMS_ITS | CCD ---
Author Organization [facility] Care Team Providers Care Transfer Station Attendant Name Role Phone PHYSICIAN, DEFAULT Unavailable Unavailable [...] Consulting Unavailable NOEMY ., AKHIL Admitting Unavailable ALANSON, DR RIA Phillips Consulting Unavailable NOEMY .AKHIL Attending Unavailable MISC, DR MEYER Primary Care Unavailable IRENE .OPAL Consulting Unavailable PRINCE Haas Attending Provider Baltazar Askew Unavailable MD Edd Day Attending Provider SATHISH Wood Primary Care Provide r SATHISH Hatfield Attending Provider Ermelinda Jiang Attending Unavailable Ermelinda Jiang Admitting Unavailable NON STAFF Primary Care Unavailable Ayleen Hatfield Attending Unavailable Ayleen Hatfield Admitting Unavailable NON STAFF Primary Care Provider UnavailErmelinda Casanova APRN Attending Provider FRANCINE JAMES Referring Unavailable FRANCINE JAMES Admitting Unavailable FRANCINE JAMES Attending Unavailable FRANCINE JAMES Attending Unavailable FRANCINE JAMES Attending Unavailable FRANCINE JAMES Attending Unavailable RAMÓN FU Attending Unavailable Allergies Allergy Classification Reported Allergen(s) Allergy Type Date of Onset Reaction(s) Facility (2 sources) raNITIdine Drug Allergy 4 [facility] Repository (1 source) No Known Allergies; Translations: [No Known Allergies] Propensity to adverse reactions (disorder) [facility] Rep[facility] (3 sources) raNITIdine; Translations: [ranitidine] Drug Allergy 8 [facility] (1 source) raNITIdine; Translations: [RANITIDINE HCL] Drug Allergy 2 [facility] Medications Current Medications Medication Drug Class(es) Dates Sig (Normalized) Sig (Original) albuterol 0.83 mg/ml inhalation solution (14 sources) beta2-Adrenergic Agonist Start: 11-29-2024 take 2.5 mg by inhalation every eight hours as needed for wheezing Albuterol Sulfate 2.5 mg /3 mL (0.083 %) solution for nebulization Active 2.5 MG INHALATION Q8H as needed for shortness of breath or wheezing 63 7 November 29, 2024 1:00am Start: 09-27-2023 take 1 puff(s) by in halation four times daily as needed Albuterol Sulfate 90 mcg/actuation HFA aerosol inhaler Active 2 PUFF INHALATION Four times daily as needed for Shortness Of Breath September 27, 2023 1:00am Start: 07-09-2023 take [...] a day prn Jun, Active Albuterol Active ARIPiprazole 5 mg oral tablet (2 sources) Atypical Antipsychotic Start: 11-29-2024 take 1 tablet by mouth once daily Aripiprazole 5 mg tablet Active 5 MG PO Daily November 29, 2024 1:00am aspirin 81 mg chewable tablet (12 sources) Platelet Aggregation Inhibitor, Nonsteroidal Anti-inflammatory Drug Start: 10-24-2017 take 1 tablet by mouth once daily Aspirin 81 mg tablet,chewable Active 81 MG PO Daily October 24, 2017 1:00am atorvastatin 20 mg oral tablet (12 sources) HMG-CoA Reductase Inhibitor Start: 10-24-2017 take 1 tablet by mouth once daily Atorvastatin 20 mg tablet Active 20 MG PO Daily October 24, 2017 1:00am dexamethasone 4 mg oral tablet (1 source) Corticosteroid Start: 11-19-2021 take 1 tablet by mouth every twenty-four hours Dexamethasone 4 MG 1 tablet Orally Once a day for 5 day(s) Oct, Active 0.5 ml dulaglutide 3 mg/ml auto-injector (14 sources) GLP-1 Receptor Agonist Start: 11-29-2024 Dulaglutide (Trulicity) 1.5 mg/0.5 mL pen injector Active 4.5 MG SUBCUT November 29, 2024 2:19pm Start: 07-04-2024 End: 11-29-2024 Dulaglutide (Trulicity) 1.5 mg/0.5 mL pen injector Discontinued MG SUBCUT July 04, 2024 12:00am November 29, 2024 2:19pm Start: 09-27-2023 End: 07-04-2024 Dulaglutide (Trulicity) 0.75 mg/0.5 mL pen injector Discontinued 0.75 MG SUBCUT every week September 27, 2023 1:00am July 04, 2024 1:37pm Trulicity 0.75 M G/0.5ML as directed Subcutaneous Active empagliflozin 25 mg oral tablet (11 sources) Sodium-Glucose Cotransporter 2 Inhibitor Start: 09-27-2023 take 1 tablet by mouth once daily Empagliflozin (Jardiance) 25 mg tablet Active 25 MG PO Daily September 27, 2023 1:00am Jardiance Active gabapentin 600 mg oral tablet (11 sources) Anti-epileptic Agent Start: 09-27-2023 take 1 tablet by mouth three times daily Gabapentin 600 mg tablet Active 600 MG PO Three times daily September 27, 2023 1:00am Gabapentin Activ e 24 hr isosorbide mononitrate 30 mg extended release oral tablet (4 sources) Nitrate Vasodilator Start: 09-27-2023 take 1 tablet by mouth once daily, then take 1 tablet by mouth every twenty-four hours Isosorbide Mononitrate 30 mg tablet extended release 24 hr Active 30 MG PO Daily September 27, 2023 1:00am Isosorbide Dinitrate (7 sources) Nitrate Vasodilator Isosorbide Dinitrate Active metFORMIN hydrochloride 1000 mg oral tablet (11 sources) Biguanide Start: 09-27-2023 take 1 tablet by mouth once daily Metformin 1,000 mg tablet Active 1000 MG PO Daily September 27, 2023 1:00am metFORMIN HCl Ac tive methylPREDNISolone 4 mg oral tablet (1 source) Corticosteroid Start: 11-29-2024 take 1 tablet by mouth once Methylprednisolone (Medrol (Fredrick)) 4 mg tablets,dose pack Active 0 PO per package directions November 29, 2024 1:00am PO PER PKG DIR for 6 days 24 hr metoprolol succinate 25 mg extended release oral tablet (13 sources) beta-Adrenergic Sonia Start: 07-04-2024 take 1 tablet by mouth every twenty-fou r hours Metoprolol Succinate 25 mg tablet extended release 24 hr Active MG PO July 04, 2024 12:00am Start: 07-04-2024 Metoprolol Suc cinate Active MG PO July 04, 2024 12:00am Start: 10-24-2017 End: 01-03-2018 take 1 tablet by mouth once daily Metoprolol Succinate 50 mg tablet extended release 24 hr Discontinued 1.5 TAB PO Daily October 24, 2017 1:00am January 03, 2018 6:49pm Metoprolol Tartr ate 50 MG 1 1/2 tablet with food Orally Twice a day Not-Taking montelukast 10 mg oral tablet (11 sources) Leukotriene Receptor Antagonist Start: 09-27-2023 take 1 tablet by mouth once daily Montelukast 10 mg Tablet Active 10 MG PO Daily September 27, 2023 1:00am take 1 tablet by herbie th every twenty-four hours Singulair 10 MG 1 tablet Orally Once a day Active Singulair Active Nebulizer And Compressor device (1 source) Start: 11-29-2024 Nebulizer And Compressor device Active 0 .Route November 29, 2024 1:00am As directed nitrofurantoin, macrocrystals 25 mg / nitrofurantoin, monohydrate 75 mg oral capsule (3 sources) Nitrofuran Antibacterial Start: 03-30-2023 take 1 capsule by mouth every twelve hours Macrobid 100 MG 1 cap(s) Orally bid for 5 day(s) Mar, Active pantoprazole 40 mg delayed release oral tablet (12 sources) Proton Pump Inhibitor Start: 10-24-2017 take 1 tablet by mouth twice daily Pantoprazole 40 mg tablet,delayed release (DR/EC) Active 40 MG PO Twice daily October 24, 2017 1:00am phenazopyridine hydrochloride 200 mg oral tablet (3 sources) Start: 03-30-2023 take 1 tablet by mouth every eight hours Pyridium 200 MG 1 tablet after meals Orally Three times a day for 2 day(s) Mar, Active microencapsulated potassium chloride 20 meq extended release oral tablet (12 sources) Start: 10-24-2017 take 1 tablet by mouth once daily Potassium Chloride 20 mEq tablet,ER particles/crystal s Active 20 MEQ PO Daily October 24, 2017 1:00am predniSONE 20 mg oral tablet (6 sources) Start: 07-09-2023 take 1 tablet by mouth every twelve hours predniSONE 20 MG 1 tablet Orally bid for 5 day(s) Jun, Active Start: 01-03-2018 End: 09-27-2023 take 3 tablets by mouth once daily at mealtime Prednisone 20 mg tablet Discontinued 60 MG PO Daily 15 January 03, 2018 12:00am September 27, 2023 8:07am administer with food or milk Start: 01-03-2018 End: 09-27-2023 take 60 mg by mouth once daily at mealtime Prednisone Discontinued 60 MG PO Daily 15 January 03, 2018 12:00am September 27, 2023 8:07am administer with food or milk Pyrilamine-Dextromethorphan ([place] Dm) 7.5-7.5 mg/5 mL liquid (1 source) Start: 11-29-2024 take 1 mL by mouth every eight hours Pyrilamine-Dextromethorphan ([place] Dm) 7.5-7.5 mg/5 mL liquid Active 10 ML PO Every 8 hours 150 5 November 29, 2024 1:00am Spiriva Respimat (7 sources) Spiriva Respimat Active 60 actuat tiotropium 0.54922 mg/actuat inhalation spray (4 sources) Anticho linergi c Start: 09-27-2023 take 1 puff(s) by inhalation once daily Tiotropium [place] (Spiriva Respimat) 1.25 mcg/actuation Mist Active 2 PUFF INHALATION Daily September 27, 2023 1:00am valACYclovir 1000 mg oral tablet (1 source) Herpesv irus Nucleos shaila Analog DNA Polymer ase Inhibit or, Herpes Simplex Virus Nucleos shaila Analog DNA Polymer ase Inhibit or, Herpes Zoster Virus Nucleos shaila Analog DNA Polymer ase Inhibit or Start: 07-09-2023 take 1 tablet by mouth every eight hours valACYclovir HCl 1 GM 1 tablet Orally tid for 7 days Jun, Active Completed/Discontinued Medications Medication Drug Class(es) Dates Sig (Normalized) Sig (Original) amoxicillin 875 mg / clavulanate 125 mg oral tablet (2 sources) Penicillin-class Antibacterial Start: 07-06-2024 End: 11-29-2024 take 1 tablet by mouth twice daily Amoxicillin-Pot Clavulanate 875-125 mg tablet Discontinued 1 TAB PO Twice daily 08 04July 06, 2024 12:00am November 29, 2024 2:07pm azithromycin 250 mg oral tablet (5 sources) Macrolide Antimicrobial Start: 01-03-2018 End: 09-27-2023 [...] May, Not-Taking carvedilol 25 mg oral tablet (12 sources) alpha-Adrenergic Sonia, beta-Adrenergic Sonai Start: 10-24-2017 End: 07-04-2024 take 1 tablet by mouth twice daily Carvedilol 25 mg tablet Discontinued 25 MG PO Twice daily October 24, 2017 1:00am July 04, 2024 1:37pm Carvedilol Activ e dicyclomine hydrochloride 20 mg oral tablet (5 sources) Anticholinergic Start: 01-03-2018 End: 09-27-2023 take 1 tablet by mouth four times daily Dicyclomine 20 mg Tablet Discontinued 20 MG PO Four times daily January 03, 2018 12:00am September 27, 2023 8:07am DULoxetine 60 mg delayed release oral capsule (5 sources) Serotonin and Norepinephrine Reuptake Inhibitor take 1 capsule by mouth every twenty-four hours DULoxetine HCl 60 MG 1 capsule Orally Once a day Not-Taking furosemide 40 mg oral tablet (10 sources) Loop Diuretic Start: 10-24-2017 End: 09-27-2023 take 1 tablet by mouth once daily Furosemide 40 mg tablet Discontinued 40 MG PO Daily October 24, 2017 1:00am September 27, 2023 8:07am hydrOXYzine hydrochloride 25 mg oral tablet (3 sources) Antihistamine Start: 07-04-2024 End: 11-29-2024 Hydroxyzine Hcl 25 mg tablet Discontinued MG PO July 04, 2024 12:00am November 29, 2024 2:18pm Start: 07-04-2024 Hydroxyzine Hc l Active MG PO July 04, 2024 12:00am Ketorolac (7 sources) Nonsteroidal Anti-inflammatory Drug, Cyclooxygenase Inhibitor Start: 11-19-2021 Toradol per 15 mg Oct, 30 mg losartan potassium 25 mg oral tablet (12 sources) Angiotensin 2 Receptor Sonia Start: 10-24-2017 End: 09-27-2023 take 1 tablet by mouth once daily Losartan 25 mg tablet Discontinued 25 MG PO Daily October 24, 2017 1:00am September 27, 2023 8:07am OLANZapine 5 mg oral tablet (5 sources) Atypical Antipsychotic Start: 01-03-2018 End: 09-27-2023 take 1 tablet by mouth once daily Olanzapine 5 mg tablet Discontinued 5 MG PO Daily January 03, 2018 12:00am September 27, 2023 8:07am PARoxetine hydrochloride 40 mg oral tablet (4 sources) Serotonin Reuptake Inhibitor Start: 09-27-2023 End: 07-04-2024 take 1 tablet by mouth once daily Paroxetine Hcl 40 mg tablet Discontinued 40 MG PO Daily September 27, 2023 1:00am July 04, 2024 1:48pm Triamcinolone (14 sources) Corticosteroid Start: 07-13-2017 Kenalog -40 mg Jun, 40 mg valsartan 160 mg oral tablet (11 sources) Angiotensin 2 Receptor Sonia Start: 09-27-2023 End: 07-04-2024 take 1 tablet by mouth once daily Valsartan 160 mg tablet Discontinued 160 MG PO Daily September 27, 2023 1:00am July 04, 2024 1:48pm Valsartan Active Problems Active Problems Problem Classification Problem Date Documented Da te Episodic/Chronic Abdominal hernia (7 sources) Hiatal hernia; Translations: [Diaphragmatic hernia without obstruction or gangrene] Episodic Abdominal pain (6 sources) Unspecified abdominal pain; Translations: [Right lower quadrant pain] Onset: 2022 Episodic Asthma (1 source) Mild persistent asthma with (acute) exacerbation; Translations: [Asthma, unspecified type, with (acute) exacerbation] 11-29-2024 Chronic Chronic obstructive pulmonary disease and bronchiectasis (10 sources) Acute exacerbation of chronic obstructive airways disease; Translations: [Chronic bronchitis] 01-03-2018 Chronic Chronic obstructive pulmonary disease and bronchiectasis (1 source) Bronchitis, not specified as acute or chronic Episodic Conditions associated with dizziness or vertigo (1 source) Dizziness and giddiness; Translations: [DIZZINESS AND GIDDINESS] Onset: 11-15-2022 Episodic Congestive heart failure; nonhypertensive (8 sources) Heart failure, unspecified; Translations: [Chronic systolic (congestive) heart failure] Onset: 04-08-2017 Chronic Coronary atherosclerosis and other heart disease (5 sources) Atherosclerotic heart disease of [place] coronary artery without angina pectoris; Translations: [Unstable angina] Onset: 04-08-2017 Chronic Diabetes mellitus with complications (4 sources) Type 2 diabetes mellitus with hyperglycemia; Translations: [TYPE 2 DM W/HYPERGLYCEMIA] Onset: 01-08-2023 Chronic Diabetes mellitus without complication (7 sources) Glycosuria; Translations: [Glycosuria] Episodic Disorders of lipid metabolism (2 sources) Mixed hyperlipidemia; Translations: [Mixed hyperlipidemia] Onset: 08-17-2024 Chronic Esophageal disorders (9 sources) Gastro-esophageal reflux disease without esophagitis; Translations: [Gastroesophageal reflux disease] Onset: 04-08-2017 Chronic Essential hypertension (6 sources) Essential (primary) hypertension; Translations: [ESSENTIAL PRIMARY HYPERTENSION] Onset: 04-16-2022 Chronic Gastroduodenal ulcer (except hemorrhage) (7 sources) Gastric ulcer without hemorrhage, without perforation AND without obstruction; Translations: [Gastric ulcer, unspecified as acute or chronic, without hemorrhage or perforation] Chronic Headache; including migraine (4 sources) Headache; including migraine; Translations: [HEADACHE UNSPECIFIED] Onset: 11-10-2022 Malaise and fatigue (1 source) Other fatigue; Translations: [OTHER FATIGUE] Onset: 11-15-2022 Episodic Nausea and vomiting (14 sources) Vomiting; Translations: [Vomiting, unspecified] Episodic Other circulatory disease (7 sources) Elevated blood pressure; Translations: [Elevated blood-pressure reading, without diagnosis of hypertension] Episodic Other circulatory disease (2 sources) Other specified symptoms and signs involving the circulatory and respiratory systems; Translations: [Other symptoms involving respiratory system and chest] Onset: 11-29-2024 11-29-2024 Episodic Other connective tissue disease (7 sources) Spasm; Translations: [Other muscle spasm] Episodic Other disorders of stomach and duodenum (7 sources) Indigestion; Translations: [Functional dyspepsia] Episodic Other gastrointestinal disorders (7 sources) Heartburn; Translations: [Heartburn] Episodic Other gastrointestinal disorders (4 sources) Dysphagia; Translations: [Dysphagia, unspecified] 09-27-2023 Episodic Other gastrointestinal disorders (1 source) Dysphagia, unspecified; Translations: [Dysphagia, unspecified] 09-27-2023 Episodic Other lower [...] Classification Problem Date Documented Da te Episodic/Chronic Genitourinary symptoms and ill-defined conditions (11 sources) Frequency of micturition; Translations: [Hematuria, unspecified] Onset: 07-04-2024 Episodic Other aftercare (2 sources) intermediate (current) use of aspirin; Translations: [CULLET CRUSHER (CURRENT) USE OF ASPIRIN] Onset: 04-08-2017 Episodic Other aftercare (1 source) 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; Translations: [CULLET CRUSHER USE ORAL HYPOGLYCEMIC DX] Onset: 06-25-2022 Episodic Other aftercare (1 source) Other group home (current) drug therapy; Translations: [OTH CARE HOME CURRENT DRUG THERAPY] Onset: 06-25-2022 Episodic Other lower respiratory disease (1 source) Shortness of breath; Translations: [SHORTNESS OF BREATH] Onset: 04-08-2017 Episodic Other non-traumatic joint disorders (1 source) Pain in right knee Onset: 11-19-2021 Resolved: 11-19-2021 Episodic Results Test Name Value Interpretation Reference Range Facility Office Visiton 01-21-2025 Follow-up visit [id number] Christopher Castaneda 1965 F Date Provider Department Center 01/21/2025 RAMÓN COTE [facility] Family History Problem Relation Age of Onset Coronary artery disease Father Diabetes Brother Family Status - Relation Status Age at Father Brother Level of Service:49561 RI OFFICE/OUTPATIENT ESTABLISHED MOD MDM 30 MIN Normal [facility] X-ray reportOrdered By: Valdo Madison on 11-29-2024 Study report [facility] Main [address] [address] XRay Report Signed Patient: Bora Castaneda MR#: [id number] : 1965 Acct:[id number] Age/Sex: 59 / F ADM Date: 5 Loc: XDUCLY Room: Type: REG CLI Attending Dr: Ermelinda Jiang APRN Copies to: Ermelinda Jiang APRN~ Ordering Provider: Ermelinda Jiang APRN Date of Service: 11/29/24 XR/XR chest 2V*: R09.89 - Other specified symptoms and signs involving the... Chest 2 views CLINICAL HISTORY: Productive cough chest congestion fatigue and wheezing for 3 weeks. COMPARISON: None FINDINGS: Heart normal in size. Lungs are clear. No free air. XR/XR chest 2V* IMPRESSION: NO ACUTE CARDIOPULMONARY ABNORMALITY. Impression dictated by: Hima Madison Jr. D.OYajaira11/29/2024 2:20 PM Dictation Location: RADIO-PC-23 Transcribed By: SON 11/29/24 1420 Dictated By: Hima Madison Jr, DO 11/29/24 141 Signed By: 11/29/24 1420 [facility] XR chest 2V*on 11-29-2024 XR chest 2V* [facility] [place] [address] XRay Report Signed Patient: Bora Castaneda MR#: [id number] : 1965 Acct:[id number] Age/Sex: 59 / F ADM Date: 11/29/24 Loc: [facility]: [facility] Att[facility] Dr: Ermelinda Jiang APRN Copies to: Ermelinda Jiang APRN Ordering Provider: Ermelinda Jiang APRN Date of Service: 11/29/24 XR/XR chest 2V*: R09.89 - Other specified symptoms and signs involving the... Chest 2 views CLINICAL HISTORY: Productive cough chest congestion fatigue and wheezing for 3 weeks. COMPARISON: None FINDINGS: Heart normal in size. Lungs are clear. No free air. XR/XR chest 2V* IMPRESSION: NO ACUTE CARDIOPULMONARY ABNORMALITY. Impression dictated by: Hima Madison Jr. D.O.11/29/2024 2:20 PM Dictation Location: RADIO-PC-23 Transcribed By: SON 11/29/24 1420 Dictated By: Hima Madison Jr, DO 11/29/24 141 Signed By: 11/29/24 1420 [facility] Office Visiton 08-17-2024 Follow-up visit [id number] Christopher Castaneda 1965 F Date Provider Department Center 08/17/2024 3848-FRANCINE JAMES [facility] Family History Problem Relation Age of Onset Coronary artery disease Father Diabetes Brother Family Status - Relation Status Age at Father Brother Level of Service:69599 [place] OFFICE/OUTPATIENT ESTABLISHED LOW MDM 20 MIN [facility] HPon 07-25-2024 HP -------- Attestation signed by Francine James MD at 07/25/2024 9:11 AM H and P reviewed. No significant changes. Patient presenting with UA, HFrEF. Plan to proceed with cath. Procedure was explained to patient at length and in detail. Risks, benefits, and alternatives were discussed. Patient is informed that risks of this invasive procedure include, but are not limited to, bleeding, hematoma, kidney injury, CVA, arrythmia requiring defibrillation, need for emergent open heart surgery, and . Patient understands these risks and wishes to proceed. Francine James MD H&P reviewed. The patient was examined and there are no changes to the H&P. The procedure was explained to the patient. The risks and benefits of the procedure were explained to the patient who showed understanding and with full capacity elected to proceed with the procedure. All questions were addressed and answered. July Moore MD Abrading Machine Tender - PGY6 [facility] NURSNOTEon 07-25-2024 HUMAIRA RN educated pt on maegan figueroa instructions. RN encouraged pt to voice any questions or concerns. Pt verbalizes no questions or concerns at this time. Pt was wheeled off unit with all belongings. Normal [facility] Office Visiton 07-06-2024 Follow-up visit [id number] Christopher Castaneda tta S 1965 F Date Provider Department [place] 07/06/2024 3848-FRANCINE JAMES [facility] Family History Problem Relation Age of Onset Coronary artery disease Father Diabetes Brother Family Status - Relation Status Age at Father Brother Level of Service:20970 [place] OFFICE/OUTPATIENT ESTABLISHED MOD MDM 30 MIN [facility] Orders Onlyon 07-06-2024 Orders Only [id number] Christopher Castaneda tta S 1965 F Date Provider Department [place] 07/06/2024 895-SAIRA REDMOND [facility] Family History Problem Relation Age of Onset Coronary artery disease Father Diabetes Brother Family Status - Relation Status Age at Father Brother [facility] Urine Cultureon 07-04-2024 Bacteria identified Cx Nom (U) ORGANISM: Escherichia coli (O:ESCCOL) [place] Count 20,000 Aerobic IVANNA Charge (NMIC56) SUSCEPTIBILITY [...] RESISTANT TO ALL B-LACTAM DRUGS. PERFORMED BY: [place] [address] PATHOLOGIST BACK FEEDER [employer] KATHY FELDMAN M.D. Normal [facility] Comment on above: Performed By: #### C UU #### [address] Telemedicineon 03-27-2024 Telemedicine [id number] Christopher Castaneda 1965 F Date Provider Department [facility] Family History Problem Relation Age of Onset Coronary artery disease Father Diabetes Brother Family Status - Relation Status Age at Father Brother Level of Service:86362 [place] OFFICE/OUTPATIENT ESTABLISHED MOD MDM 30 MIN Normal [facility] Glucose Glucometer (BldC) [M ass/Vol]Ordered By: Edd Day on 09-27-2023 Glucose [Mass/Vol] 179 mg/dL [facility] Comment on above: Random Glucose Refer ence Range is dependent on time and content of last meal. Glucose of more than 200 mg/dL in a nonstressed, ambulatory subject supports the diagnosis of Diabetes Mellitus. HCG ( test) IA.rapi d Ql (U)Ordered By: Edd Day on 09-27-2023 HCG ( test) Ql (U) Negative [facility] No Panel InformationOrdered By: Edd Day on 09-27-2023 Bedside Glucose Comment Glu2: cleaned meter [facility] COVID/FLU/RSV RT-PCRon 07-09 SARS-CoV-2 (COVID-19) RNA MECCA+probe Ql (Unsp spec) Negative [employer] Other COVID/FLU/RSV RT-PCR Negative [employer] Other Quick Strepon 07-09-2023 S. pyogenes Org specific cx Ql (Throat) Negative [employer] Other Quick Strep [employer] Other Urinalysis - AUTOMATEDon Appearance (U) cloudy [employer] Other Bilirubin Ql (U) Negative [email or web address] Other Color (U) yellow [employer] Other Glucose Ql (U) >=1000 [employer] Other Hemoglobin Ql (U) small [employer] Other Ketones Ql (U) Negative [employer] Other Leukocyte esterase Test strip Ql (U) trace [employer] Other Nitrite Ql (U) Negative [employer] Other pH (U) 5.5 [pH] [employer] Other Protein Ql (U) Negative [employer] Other Specific gravity (U) [Rel density] 1.010 [employer] Other Urobilinogen (U) [Mass/Vol] 0.2 mg/dL [employer] Other Urinalysis - AUTOMATED [employer] Other Urine Cultureon 03-30-2023 Urine Culture >100,000 [employer] Other Urine Culture <16 Susceptible [employer] Other Urine Culture <8/4 Susceptible [employer] Other Urine Culture <8 Susceptible [place] [employer] Other Urine Culture <4 Susceptible [place] [employer] Other Urine Culture <2 Susceptible [place] [employer] Other Urine Culture <1 Susceptible [place] [employer] Other Urine Culture <0.25 Susceptible [place] [employer] Other Urine Culture <0.5 Susceptible [employer] Other Urine Culture <32 Susceptible [place] [employer] [employer] Other Urine Culture <0.5/9.5 Susceptible [place] [employer] Other LIPID PROFILEon 01-08-2023 CHOL-HDL RATIO NORM SEE BELOW Normal [facility] Comment on above: Result Comment: 3.3 - 4.4 LOW RISK 4.4 - 7.1 AVERAGE RISK 7.1 - 11.0 MODERATE RISK >11.0 HIGH RISK Performed By: #### T SHRFT4, CMP, LIPID #### [facility] [address] [address] [address] Jacquelyn Robb Cholesterol [Mass/Vol] 253 mg/dL Critically high <=200 [facility] Comment on above: Performed By: #### T SHRFT4, CMP, LIPID #### [facility] [id number] Jacquelyn Robb Cholesterol in HDL [Mass/Vol] 33 mg/dL Critically low 40-60 [facility] Comment on above: Performed By: #### T SHRFT4, CMP, LIPID #### [facility] [address] [place], [place] [address] Dr. Jacquelyn Robb Cholesterol in LDL [Mass/Vol] 152.2 mg/dL Normal [facility] Comment on above: Performed By: #### T SHRFT4, CMP, LIPID #### [facility] [address] [place], [place] [address] Dr. Jacquelyn Robb Cholesterol.total/C holesterol in HDL [Mass ratio] 7.7 {ratio} Normal [facility] Comment on above: Performed By: #### T SHRFT4, CMP, LIPID #### [facility] [address] [address] [address] Jacquelyn Robb HDL NORMAL > or = 60 mg/dl - LO W CARDIOVASCULAR RISK <40 mg/dl - HIGH CARDIOVASCULAR RISK Normal [facility] Comment on above: Performed By: #### T SHRFT4, CMP, LIPID #### [facility] [address] [address] [address] Jacquelyn Robb LDL CALC NORMAL SEE BELOW Normal [facility] Comment on above: Result Comment: <100 mg/dl OPTIMAL 100 - 129 mg/dl NEAR OR ABOVE OPTIMAL 130 - 159 mg/dl BORDERLINE HIGH 160 - 189 mg/dl HIGH >190 mg/dl VERY HIGH Performed By: #### T SHRFT4, CMP, LIPID #### [facility] [address] [address] [address] Jacquelyn Robb Triglyceride [Mass/Vol] 339 mg/dL Critically high <=150 [facility] Comment on above: Performed By: #### T SHRFT4, CMP, LIPID #### [facility] [address] [place], [place] [address] Dr. Jacquelyn Robb VLDL CALC 67.8 mg/dL Normal [facility] Comment on above: Performed By: #### T SHRFT4, CMP, LIPID #### [facility] [address] [place], [place] [address] Dr. Jacquelyn Robb MICROALB CREAT RATIO RANDOMo n 01-08-2023 mALB <1.3 Normal <=30.0 [facility] Comment on above: Performed By: #### M CRR ####[facility] [id number] [place], [place] [address]VaDr. Jacquelyn Robb MALB CR RATIO 34.9 mg/g Critically high 0.0-29.9 [facility] Comment on above: Performed By: #### M CRR ####[facility] [address] [place], [place] [address]PfDr. Jacquelyn Robb MALB CR RATIO RANGE SEE BELOW Normal [facility] Comment on above: Result Comment: NO M ICROALBUMINURIA 0-29 MG/G CLINICAL MICROALBUMINURIA 30-300 MG/G MACROALBUMINURIA >300 MG/G Performed By: #### M CRR ####[facility] [id number] [id number]. Jacquelyn Robb URINE CREAT 37.21 mg/dL Normal 20.00-300. 00 [facility] Comment on above: Performed By: #### M CRR ####[facility] [id number] [address]Dr. Jacquelyn Robb PROF 14(COMP METB)on 023 Albumin [Mass/Vol] 3.4 g/dL Normal 3.4-5.0 [facility] Comment on above: Performed By: #### T SHRFT4, CMP, LIPID #### [facility] [address] [address] [address] Jacquelyn Robb Albumin/Globulin [Mass ratio] 0.7 {ratio} Normal [facility] Comment on above: Performed By: #### T SHRFT4, CMP, LIPID #### [facility] [address] [address] [address] Jacquelyn Robb ALP [Catalytic activity/Vol] 107 U/L Normal 46-116 [facility] Comment on above: Performed By: #### T SHRFT4, CMP, LIPID #### [facility] [address] [address] [address] Jacquelyn Robb ALT [Catalytic activity/Vol] 32 U/L Normal 14-59 [facility] Comment on above: Performed By: #### T SHRFT4, CMP, LIPID #### [facility] [address] [address] [address] Jacquelyn Robb Anion gap [Moles/Vol] 14.2 mmol/L Normal [facility] Comment on above: Performed By: #### T SHRFT4, CMP, LIPID #### [facility] [address] [address] [address] Jacquelyn Robb AST [Catalytic activity/Vol] 15 U/L Normal 15-37 [facility] Comment on above: Performed By: #### T SHRFT4, CMP, LIPID #### [facility] [address] [address] [address] Jacquelyn Robb Bilirubin [Mass/Vol] 0.3 mg/dL Normal 0.2-1.0 [facility] Comment on above: Performed By: #### T SHRFT4, CMP, LIPID #### [facility] [address] [place] [address] Dr. Jacquelyn Robb Calcium [Mass/Vol] 9.3 mg/dL Normal 8.5-10.1 [facility] Comment on above: Performed By: #### T SHRFT4, CMP, LIPID #### [facility] [address] [place] [address] Dr. Jacquelyn Robb Chloride [Moles/Vol] 103 mmol/L Normal 98-107 [facility] Comment on above: Performed By: #### T SHRFT4, CMP, LIPID #### [facility] [address] [place] [address] Dr. Jacquelyn Robb CO2 [Moles/Vol] 26.7 mmol/L Normal 21.0-32.0 [facility] Comment on above: Performed By: #### T SHRFT4, CMP, LIPID #### [facility] [address] [place] [address] Dr. Jacquelyn Robb Creatinine [Mass/Vol] 0.87 mg/dL Normal 0.55-1.02 [facility] Comment on above: Performed By: #### T SHRFT4, CMP, LIPID #### [facility] [address] [place] [address] Dr. Jacquelyn Robb EGFR-AF CAMEROONIAN >60 Normal >=60 [facility] Comment on above: Performed By: #### T SHRFT4, CMP, LIPID #### [facility] [address] [place] [address] Dr. Jacquelyn Robb EGFR-NON AF CAMEROONIAN >60 Normal >=60 [facility] Comment on above: Performed By: #### T SHRFT4, CMP, LIPID #### [facility] [address] [place] [address] Dr. Jacquelyn Robb Globulin (S) [Mass/Vol] 4.8 g/dL Normal [facility] Comment on above: Performed By: #### T CESARIOFT4, CMP, LIPID #### [facility] [address] [address] [address] Jacquelyn Robb Glucose [Mass/Vol] 251 mg/dL Critically high 74-106 [facility] Comment on above: Performed By: #### T JESSICA4, CMP, LIPID #### [facility] [address] [place] [address] Dr. Jacquelyn Robb Potassium [Moles/Vol] 3.9 mmol/L Normal 3.5-5.1 [facility] Comment on above: Performed By: #### T JESSICA4, CMP, LIPID #### [facility] [address] [place] [address] Dr. Jacquelyn Robb Protein [Mass/Vol] 8.2 g/dL Normal 6.4-8.2 [facility] Comment on above: Performed By: #### T JESSICA4, CMP, LIPID #### [facility] [address] [place] [address] Dr. Jacquelyn Robb Sodium [Moles/Vol] 140 mmol/L Normal 136-145 [facility] Comment on above: Performed By: #### T JESSICA4, CMP, LIPID #### [facility] [address] [place] [address] Dr. Jacquelyn Robb Urea nitrogen [Mass/Vol] 12.0 mg/dL Normal 7.0-18.0 [facility] Comment on above: Performed By: #### T SHRFT4, CMP, LIPID #### [facility] [address] [place] [address] Dr. Jacquelyn Robb Urea nitrogen/Creatinine [Mass ratio] 13.8 mg/mg Normal [facility] Comment on above: Performed By: #### T CESARIOFT4, CMP, LIPID #### [facility] [address] [place] [address] Dr. Jacquelyn Robb TSH W/ REFLEX TO FT4on 01-08 TSH 1.629 uIU/mL Normal 0.358-3.74 0 [facility] Comment on above: Performed By: #### T SHRFT4, CMP, LIPID #### [facility] [address] [address] [address] Jacquelyn Robb MRI BRAIN WO CONon [...] EVELYN PACHECO Date: 2022-11-10 11:18 Normal [facility] CBC AUTO DIFFon 2022 BASO # 0.1 103/ul Normal 0.0-0.1 [facility] Comment on above: Performed By: #### C BC #### [facility] [address] [address] [address] Jacquelyn Robb Basophils/100 WBC (Bld) 0.4 % Normal 0.2-2.0 [facility] Comment on above: Performed By: #### C BC #### [facility] [address] [address] [address] Jacquelyn Robb EO # 0.3 103/ul Normal 0.0-0.7 [facility] Comment on above: Performed By: #### C BC #### [facility] [address] [address] [address] Jacquelyn Robb Eosinophils/100 WBC (Bld) 2.8 % Normal 0.9-7.0 [facility] Comment on above: Performed By: #### C BC #### [facility] [address] [place] [address] Dr. Jacquelyn Robb Erythrocyte distribution width (RBC) [Ratio] 16.7 % Critically high 11.0-15.0 [facility] Comment on above: Performed By: #### C BC #### [facility] [address] [place] [address] Dr. Jacquelyn Robb Hematocrit (Bld) [Volume fraction] 44.0 % Normal 36.0-48.0 [facility] Comment on above: Performed By: #### C BC #### [facility] [address] [place] [address] Dr. Jacquelyn Robb Hemoglobin (Bld) [Mass/Vol] 13.7 g/dL Normal 12.0-16.0 [facility] Comment on above: Performed By: #### C BC #### [facility] [address] [place] [address] Dr. Jacquelyn Robb IG # 0.04 10e3/ul Critically high 0.00-0.03 [facility] Comment on above: Performed By: #### C BC #### [facility] [address] [place] [address] Dr. Jacquelyn Robb IG % 0.3 % Normal 0.0-0.5 [facility] Comment on above: Performed By: #### C BC #### [facility] [address] [place] [address] Dr. Jacquelyn Robb LYMPH # 3.3 103/ul Normal 1.2-3.8 [facility] Comment on above: Performed By: #### C BC #### [facility] [address] [place] [address] Dr. Jacquelyn Robb Lymphocytes/100 WBC (Bld) 28.4 % Normal 20.5-60.0 [facility] Comment on above: Performed By: #### C BC #### [facility] [address] [place] [address] Dr. Jacquelyn Robb MANUAL DIFF REQ NO Normal [facility] Comment on above: Performed By: #### C BC #### [facility] [address] [place] [address] Dr. Jacquelyn Robb MCH (RBC) [Entitic mass] 25.8 pg Critically low 26.7-34.0 [facility] Comment on above: Performed By: #### C BC #### [facility] [address] [address] [address] Jacquelyn Robb MCHC (RBC) [Mass/Vol] 31.1 g/dL Normal 29.9-35.2 [facility] Comment on above: Performed By: #### C BC #### [facility] [address] [address] [address] Jacquelyn Robb MCV (RBC) [Entitic vol] 83.0 fL Normal 81.0-99.0 [facility] Comment on above: Performed By: #### C BC #### [facility] [address] [place] [address] Dr. Jacquelyn Robb MONO # 0.8 103/ul Normal 0.3-0.8 [facility] Comment on above: Performed By: #### C BC #### [facility] [address] [address] [address] Jacquelyn Robb Monocytes/100 WBC (Bld) 6.9 % Normal 1.7-12.0 [facility] Comment on above: Performed By: #### C BC #### [facility] [address] [place] [address] Dr. Jacquelyn Robb NEUT # 7.2 103/ul Critically high 1.4-6.5 [facility] Comment on above: Performed By: #### C BC #### [facility] [address] [place] [address] Dr. Jacquelyn Robb Neutrophils/100 WBC (Bld) 61.2 % Normal 43.0-75.0 [facility] Comment on above: Performed By: #### C BC #### [facility] [address] [place] [address] Dr. Jacquelyn Robb Platelet mean volume (Bld) [Entitic vol] 8.8 fL Critically low 9.5-13.5 [facility] Comment on above: Performed By: #### C BC #### [facility] [address] [place] [address] Dr. Jacquelyn Robb PLT 366 103/ul Normal 150-450 [facility] Comment on above: Performed By: #### C BC #### [facility] [address] [place] [address] Dr. Jacquelyn Robb RBC 5.30 106/ul Normal 4.20-5.40 [facility] Comment on above: Performed By: #### C BC #### [facility] [address] [address] [address] Jacquelyn Robb WBC 11.7 103/ul Critically high 4.0-11.0 [facility] Comment on above: Performed By: #### C BC #### [facility] [address] [place] [address] ABD/PELVIS WO CONon [...] RIA BLACKMON Date: 2022 14:08 Normal [facility] ER URINE PROFILEon Clarity (U) CLEAR Normal CLEAR [facility] Comment on above: Performed By: #### E FUAD BURDEN #### [facility] [address] [place] [address] Dr. Jacquelyn Robb Color (U) LT. YELLOW Normal YELLOW [facility] Comment on above: Performed By: #### ALDO AHUJARO #### [facility] [address] [place] [address] Dr. Jacquelyn Robb ERUAHMarjorie A micrscopic examina tion will be performed if indicated. Normal [facility] Comment on above: Performed By: #### ALDO AHUJARO #### [facility] [address] [place] [address] Dr. Jacquelyn Robb Glucose Ql (U) 1000 mg/dl Abnormal NEGATIVE [facility] Comment on above: Performed By: #### Abad BURDEN UMICRO #### [facility] [address] [place] [address] Dr. Jacquelyn Robb Hemoglobin Ql (U) TRACE-LYSED Abnormal NEGATIVE [facility] Comment on above: Performed By: #### ALDO AHUJARO #### [facility] [address] [place] [address] Dr. Jacquelyn Robb LEUKOCYTES Negative Normal NEGATIVE [facility] Comment on above: Performed By: #### ALDO AHUJARO #### [facility] [address] [place] [address] Dr. Jacquelyn Robb pH (U) 6.0 [pH] Normal 5-9 [facility] Comment on above: Performed By: #### ALDO AHUJARO #### [facility] [address] [place] [address] Dr. Jacquelyn Robb SPEC GRAVITY 1.015 Normal 1.005-<=1. 025 [facility] Comment on above: Performed By: #### ALDO AHUJARO #### [facility] [address] [place] [address] Dr. Jacquelyn Robb UA PROTEIN Negative Normal NEGATIVE/ TRACE [facility] Comment on above: Performed By: #### ALDO AHUJARO #### [facility] [address] [place] [address] Dr. Jacquelyn Robb UR MICRO IND INDICATED Normal [facility] Comment on above: Performed By: #### FUAD AHUJA #### [facility] [address] [place] [address] Dr. Jacquelyn Robb Urobilinogen Qn (U) 0.2 {Matthew'U}/dL Normal 0.2 - 1. 0 [facility] Comment on above: Performed By: #### FUAD AHUJA #### [facility] [address] [place] [address] Dr. Jacquelyn Robb Glucose - FINGER STICKon Glucose [Mass/Vol] 171 mg/dL [employer] Other PROF 14(COMP METB)on 022 Albumin [Mass/Vol] 3.4 g/dL Normal 3.4-5.0 [facility] Comment on above: Performed By: #### C MP #### [facility] [address] [place] [address] Dr. Jacquelyn Robb Albumin/Globulin [Mass ratio] 0.8 {ratio} Normal [facility] Comment on above: Performed By: #### C MP #### [facility] [address] [place] [address] Dr. Jacquelyn Robb ALP [Catalytic activity/Vol] 95 U/L Normal 46-116 [facility] Comment on above: Performed By: #### C MP #### [facility] [address] [place] [address] Dr. Jacquelyn Robb ALT [Catalytic activity/Vol] 27 U/L Normal 14-59 [facility] Comment on above: Performed By: #### C MP #### [facility] [address] [place] [address] Dr. Jacquelyn Robb Anion gap [Moles/Vol] 11.4 mmol/L Normal [facility] Comment on above: Performed By: #### C MP #### [facility] [address] [place] [address] Dr. Jacquelyn Robb AST [Catalytic activity/Vol] 17 U/L Normal 15-37 [facility] Comment on above: Performed By: #### C MP #### [facility] [address] [address] [address] Jacquelyn Robb Bilirubin [Mass/Vol] 0.3 mg/dL Normal 0.2-1.0 [facility] Comment on above: Performed By: #### C MP #### [facility] [address] [address] [address] Jacquelyn Robb Calcium [Mass/Vol] 9.0 mg/dL Normal 8.5-10.1 [facility] Comment on above: Performed By: #### C MP #### [facility] [address] [address] [address] Jacquelyn Robb Chloride [Moles/Vol] 103 mmol/L Normal 98-107 [facility] Comment on above: Performed By: #### C MP #### [facility] [address] [place] [address] Dr. Jacquelyn Robb CO2 [Moles/Vol] 29.5 mmol/L Normal 21.0-32.0 [facility] Comment on above: Performed By: #### C MP #### [facility] [address] [place] [address] Dr. Jacquelyn Robb Creatinine [Mass/Vol] 0.67 mg/dL Normal 0.55-1.02 [facility] Comment on above: Performed By: #### C MP #### [facility] [address] [place] [address] Dr. Jacquelyn Robb EGFR-AF CAMEROONIAN >60 Normal >=60 [facility] Comment on above: Performed By: #### C MP #### [facility] [address] [address] [address] Jacquelyn Robb EGFR-NON AF CAMEROONIAN >60 Normal >=60 [facility] Comment on above: Performed By: #### C MP #### [facility] [address] [place] [address] Dr. Jacquelyn Robb Globulin (S) [Mass/Vol] 4.2 g/dL Normal [facility] Comment on above: Performed By: #### C MP #### [facility] [address] [place] [address] Dr. Jacquelyn Robb Glucose [Mass/Vol] 149 mg/dL Critically high 74-[address] [facility] Comment on above: Performed By: #### C MP #### [facility] [address] [address] [address] Jacquelyn Robb Potassium [Moles/Vol] 3.9 mmol/L Normal 3.5-5.1 [facility] Comment on above: Performed By: #### C MP #### [facility] [address] [address] [address] Jacquelyn Robb Protein [Mass/Vol] 7.6 g/dL Normal 6.4-8.2 [facility] Comment on above: Performed By: #### C MP #### [facility] [address] [place] [address] Dr. Jacquelyn Robb Sodium [Moles/Vol] 140 mmol/L Normal 136-145 [facility] Comment on above: Performed By: #### C MP #### [facility] [address] [place] [address] Dr. Jacquelyn Robb Urea nitrogen [Mass/Vol] 10.0 mg/dL Normal 7.0-18.0 [facility] Comment on above: Performed By: #### C MP #### [facility] [address] [place] [address] Dr. Jacquelyn Robb Urea nitrogen/Creatinine [Mass ratio] 14.9 mg/mg Normal [facility] Comment on above: Performed By: #### C MP #### [facility] [address] [place] [address] Dr. Jacquelyn Robb URINE MICROSCOPIC ONLYon BACTERIA NONE SEEN Normal NONE SEEN [facility] Comment on above: Performed By: #### FUAD AHUJA #### [facility] [address] [place] [address] Dr. Jacquelyn Robb Bacteria identified Cx Nom (U) NOT INDICATED Normal [facility] Comment on above: Performed By: #### ALDO AHUJARO #### [facility] [address] [place] [address] Dr. Jacquelyn Robb CAST NONE SEEN Normal NONE SEEN [facility] Comment on above: Performed By: #### E RUR, UMICRO #### [facility] [address] [place] [address] Dr. Jacquelyn Robb Crystals LM Nom (Urine sed) NONE SEEN Normal NONE SEEN [facility] Comment on above: Performed By: #### E RUR, UMICRO #### [facility] [address] [place] [address] Dr. Jacquelyn Robb Epithelial cells LM Ql (Urine sed) FEW Abnormal NONE SEEN /RARE [facility] Comment on above: Performed By: #### E RUR, UMICRO #### [facility] [address] [place] [address] Dr. Jacquelyn Robb MUCOUS NONE SEEN Normal NONE SEEN [facility] Comment on above: Performed By: #### E RUR, UMICRO #### [facility] [address] [place] [address] Dr. Jacquelyn Robb RBC 0-2 Normal 0-2 [facility] Comment on above: Performed By: #### E RUR, UMICRO #### [facility] [address] [place] [address] Dr. Jacquelyn Robb WBC NONE SEEN Normal NONE SEEN [facility] Comment on above: Performed By: #### E RUR, UMICRO #### [facility] [address] [place] [address] Dr. Jacquelyn Robb Urinalysis - AUTOMATEDon Bilirubin Ql (U) Negative Normal NEGATIVE [employer] Other Comment on above: Performed By: #### E RUR, UMICRO #### [facility] [address] [place] [address] Dr. Jacquelyn Robb Ketones Ql (U) Negative Normal NEGATIVE [employer] Other Comment on above: Performed By: #### E RUR, UMICRO #### [facility] [address] [place] [address] Dr. Jacquelyn Robb Nitrite Ql (U) Negative Normal NEGATIVE [employer] Other Comment on above: Performed By: #### E FUAD BURDEN #### [facility] [address] [address] [address] Jacquelyn Robb Appearance (U) yellow [employer] Other Color (U) clear [employer] Other Glucose Ql (U) 500 [employer] Other Hemoglobin Ql (U) Negative [employer] Other Leukocyte esterase Test strip Ql (U) Negative [employer] Other pH (U) 5.5 [pH] [employer] Other Protein Ql (U) Negative [employer] Other Specific gravity (U) [Rel density] 1.015 [employer] Other Urobilinogen (U) [Mass/Vol] 0.20 mg/dL [employer] Other Urinalysis - AUTOMATED [employer] Other PROF CHEM 8 (BAS METB)on Anion gap [Moles/Vol] 13.0 mmol/L Normal [facility] Comment on above: Performed By: #### B MP #### [facility] [address] [place] [address] Dr. Jacquelyn Robb Calcium [Mass/Vol] 9.1 mg/dL Normal 8.5-10.1 [facility] Comment on above: Performed By: #### B MP #### [facility] [address] [address] [address] Jacquelyn Robb Chloride [Moles/Vol] 105 mmol/L Normal 98-107 [facility] Comment on above: Performed By: #### B MP #### [facility] [address] [address] [address] Jacquelyn Robb CO2 [Moles/Vol] 27.8 mmol/L Normal 21.0-32.0 [facility] Comment on above: Performed By: #### B MP #### [facility] [address] [address] [address] Jacquelyn Robb Creatinine [Mass/Vol] 0.63 mg/dL Normal 0.55-1.02 [facility] Comment on above: Performed By: #### B MP #### [facility] [address] [address] [address] Jacquelyn Robb EGFR-AF CAMEROONIAN >60 Normal >=60 [facility] Comment on above: Performed By: #### B MP #### [facility] [address] [address] [address] Jacquelyn Robb EGFR-NON AF CAMEROONIAN >60 Normal >=60 [facility] Comment on above: Performed By: #### B MP #### [facility] [address] [place] [address] Dr. Jacquelyn Robb Glucose [Mass/Vol] 136 mg/dL Critically high 74-106 [facility] Comment on above: Performed By: #### B MP #### [facility] [address] [place] [address] Dr. Jacquelyn Robb Potassium [Moles/Vol] 3.8 mmol/L Normal 3.5-5.1 [facility] [facility] Comment on above: Performed By: #### B MP #### [facility] [address] [place] [address] Dr. Jacquelyn Robb Sodium [Moles/Vol] 142 mmol/L Normal 136-145 [facility] Comment on above: Performed By: #### B MP #### [facility] [address] [place] [address] Dr. Jacquelyn Robb Urea nitrogen [Mass/Vol] 9.0 mg/dL Normal 7.0-18.0 [facility] Comment on above: Performed By: #### B MP #### [facility] [address] [address] [address] Jacquelyn Robb Urea nitrogen/Creatinine [Mass ratio] 14.3 mg/mg Normal [facility] Comment on above: Performed By: #### B MP #### [facility] [address] [address] [address] Jacquelyn Robb XR knee RT 4V*on 11-19-2021 XR knee RT 4V* [facility] [employer] Other XR knee RT 4V* [facility] [employer] Other XR knee RT 4V* [address] [facility] [employer] Other XR knee RT 4V* [place] [address] No rt [employer] Other XR knee RT 4V* XRay Report [employer] Other XR knee RT 4V* Signed [employer] Other XR knee RT 4V* Patient: Christopher Castaneda MR#: [id number] [place] [employer] Other XR knee RT 4V* 7309 [employer] Other XR knee RT 4V* : 1965 Acct:[id number] [employer] Other XR knee RT 4V* Age/Sex: 56 / F ADM Date: 11/19/21 [employer] Other XR knee RT 4V* Loc: XDUCLY Room: pe: REG CLI [employer] Other XR knee RT 4V* Attending Dr[facility]ar [facility] [employer] Other XR knee RT 4V* Ordering Provider: HANH MENJIVAR GOLD PROSPECTORJeremias [employer] Other XR knee RT 4V* Date of Service: 11/19/21 [employer] Other XR knee RT 4V* [id number]) XR/XR knee RT 4V*: RIGHT KNEE PAIN [employer] Other XR knee RT 4V* Copies to: Joes MENJIVARP-C [employer] Other XR knee RT 4V* 4 views RIGHT knee p louise film [employer] Other XR knee RT 4V* COMPARISON:None [employer] Other XR knee RT 4V* HISTORY:RIGHT knee p ain and swelling for 3 days. [employer] Other XR knee RT 4V* No fracture, disloca tion or focal soft tissue abnormality seen. No supra patellar effusion [employer] Other XR knee RT 4V* identified. Patellar enthesophytes noted. [employer] Other XR knee RT 4V* X R/XR knee RT 4V* [employer] Other XR knee RT 4V* IMPRESSION:No acute findings [employer] Other XR knee RT 4V* Impression dictated by: Claudio Vizcarra M.D.11/19/2021 5:58 PM [employer] Other XR knee RT 4V* Dictation Location: [place] [address] [employer] Other XR knee RT 4V* Transcribed By: SON 11/19/21 [employer] Other XR knee RT 4V* Dictated By: Arcadio Vizcarra DO 11/19/211756 [employer] Other XR knee RT 4V* Signed By: [employer] Other XR knee RT 4V* 11/19/211757 [employer] Other XR-KNEE LEFT 1-2 VIEWSon XR-KNEE LEFT [...] Subhash العراقي MD, 01/15/2021 2:37 PM Normal [facility] XR-KNEE RIGHT 1-2 VIEWSon XR-KNEE RIGHT [...] Subhash العراقي MD, 01/15/2021 2:37 PM Normal [facility] Cardiovascular Lab Reporton 04-12-2017 Cardiovascular Lab Report [facility] Patient Name: [facility] MR #: [id number] Physician: Kalpana Garza,Department of M.D.Medicine Service Date: 04/08/2017Division of Birthdate: 1965Cardiology Room #: CCAdult CardiovascularServicesUn[address] [address]Ucwfd Fax Cardiovascular Laboratory ReportFINAL IMPRESSIONS1.Mild disease of [...] etc.4.[facility] up [facility] the [facility] 2-4weeks.5.Follow up with [...] common femoral vein was obtained and a 6-Montenegrin 11-cmsheath inserted without difficulty. This was repeated [...] the proximal left anterior descending wasencountered.Therefore, a 6-Montenegrin XB 3.5 guide catheter was advanced in and coaxiallyengaged into the left main coronary ostium over a J-wire. Intracoronarynitroglycerin was administered. Repeat angiography showed resolution of thesuspected spasm. The catheter was removed.An angled pigtail catheter was used for left heart catheterization, leftventriculography, and aortic pullback pressure measurements. Afterreviewing the images and data, it was elected to conclude the procedure.A 6-Montenegrin MynxGrip closure device was deployed per protocol achievingoptimal hemostasis. Overall, the patient tolerated the procedure well.There were no overt complications. She was to be transferred to the [facility] in stable condition.FINDINGSHemodynami cs:RA mean of [...] Dict: 04/08/2017//Kalpana Garza M.D.Date Trans: 04/12/2017 01:56 P/[id number]/cc: Bj Marks M.D. [address] [facility] [address] Linda Wood N.PYajaira [facility] [address] [facility] Vital Signs Date Time Vital Sign Value Performing Clinician Facility 11-29-2024 13:10-0500 Body height 162.56 cm [facility] 11-29-2024 13:10-0500 Body mass index (BMI) [Ratio] 44.6 kg/m2 [facility] 11-29-2024 13:10-0500 Body temperature 98.2 [degF] [facility] 11-29-2024 13:10-0500 Body weight 117.93 kg [facility] 11-29-2024 13:10-0500 Diastolic blood pressure 73 mm[Hg] [facility] 11-29-2024 13:10-0500 Heart rate 96 /min [facility] 11-29-2024 13:10-0500 Respiratory rate 16 /min [facility] 11-29-2024 13:10-0500 SaO2% (BldA) [Mass fraction] 96 % [facility] 11-29-2024 13:10-0500 Systolic blood pressure 108 mm[Hg] [facility] 07-04-2024 13:34-0400 Body height 162.56 cm [employer] Ayleen Alysia Work Phone: [facility] 07-04-2024 13:34-0400 Body mass index (BMI) [Ratio] 42.8 kg/m2 [employer] Ayleen Alysia Work Phone: [facility] 07-04-2024 13:34-0400 Body temperature 98.2 [degF] [employer] Ayleen Alysia Work Phone: [facility] 07-04-2024 13:34-0400 Body weight 113.17 kg [employer] Ayleen Alysia Work Phone: [facility] 07-04-2024 13:34-0400 Diastolic blood pressure 79 mm[Hg] [employer] Ayleen Alysia Work Phone: [facility] 07-04-2024 13:34-0400 Heart rate 107 /min [employer] Ayleen Alysia Work Phone: [facility] 07-04-2024 13:34-0400 Respiratory rate 18 /min [employer] Ayleen Alysia Work Phone: [facility] 07-04-2024 13:34-0400 SaO2% (BldA) [Mass fraction] 95 % [employer] Ayleen Alysia Work Phone: [facility] 07-04-2024 13:34-0400 Systolic blood pressure 126 mm[Hg] [employer] Ayleen Alysia Work Phone: [facility] 09-27-2023 09:01-0500 Diastolic blood pressure 76 mm[Hg] [employer] Linda Myerholtz Work Phone: [facility] 09-27-2023 09:01-0500 Heart rate 88 /min [employer] Linda Myerholtz Work Phone: [facility] 09-27-2023 09:01-0500 Respiratory rate 16 /min [employer] Linda Myerholtz Work Phone: [facility] 09-27-2023 09:01-0500 SaO2% (BldA) [Mass fraction] 96 % [employer] Linda Myerholtz Work Phone: [facility] 09-27-2023 09:01-0500 Systolic blood pressure 139 mm[Hg] [employer] Linda Myerholtz Work Phone: [facility] 09-27-2023 07:20-0500 Body height 162.56 cm [employer] Linda Myerholtz Work Phone: [facility] 09-27-2023 07:20-0500 Body weight 117.93 kg SATHISH Wood Work Phone: [facility] 07-09-2023 09:35-0400 Body height 162.56 cm Cyndi Cardenasmond Other [employer] Other 07-09-2023 09:35-0400 Body mass index (BMI) [Ratio] 44.01 kg/m2 Cyndi Haas Other [employer] Other 07-09-2023 09:35-0400 Body temperature 97.9 [degF] Cyndi Cardenasmond Other [employer] Other 07-09-2023 09:35-0400 Body weight 116.3 kg Cyndi Cardenasmond Other [employer] Other 07-09-2023 09:35-0400 Diastolic blood pressure 70 mm[Hg] Cyndi Cardenasmond Other [employer] Other 07-09-2023 09:35-0400 Respiratory rate 20 /min Cyndi Cardenasmond Other [employer] Other 07-09-2023 09:35-0400 SaO2% (BldA) [Mass fraction] 92 % Cyndi Cardenasmond Other [employer] Other 07-09-2023 09:35-0400 Systolic blood pressure 135 mm[Hg] Cyndi Samina Other [employer] Other 03-30-2023 09:20-0400 Body height 162.56 cm Cyndi Samina Other [employer] Other 03-30-2023 09:20-0400 Body mass index (BMI) [Ratio] 45.52 kg/m2 Cyndi Samina Other [employer] Other 03-30-2023 09:20-0400 Body temperature 98 [degF] Cyndi Samina Other [employer] Other 03-30-2023 09:20-0400 Body weight 120.29 kg Cyndi Samina Other [employer] Other 03-30-2023 09:20-0400 Respiratory rate 18 /min Cyndi Samina Other [employer] Other 03-30-2023 09:20-0400 SaO2% (BldA) [Mass fraction] 96 % Cyndi Samina Other [employer] Other 2022 12:05-0400 Body height 162.56 cm Cyndi Samina Other [employer] Other 2022 12:05-0400 Body mass index (BMI) [Ratio] 45.31 kg/m2 Cyndi Samina Other [employer] Other 2022 12:05-0400 Body temperature 97 [degF] Cyndi Samina Other [employer] Other 2022 12:05-0400 Body weight 119.75 kg Cyndi Samina Other [employer] Other 2022 12:05-0400 Diastolic blood pressure 70 mm[Hg] Cyndi Samina Other [employer] Other 2022 12:05-0400 Respiratory rate 18 /min Cyndi Haas Other [employer] Other 2022 12:05-0400 SaO2% (BldA) [Mass fraction] 97 % Cyndi Haas Other [employer] Other 2022 12:05-0400 Systolic blood pressure 116 mm[Hg] Cyndi Haas Other [employer] Other 11-19-2021 18:00-0500 Body height 162.56 cm Hanh Franklinault Other [employer] Other 11-19-2021 18:00-0500 Body mass index (BMI) [Ratio] 45.62 kg/m2 Hanh Franklinault Other [employer] Other 11-19-2021 18:00-0500 Body temperature 98.5 [degF] Hanh Sofia Other [employer] Other 11-19-2021 18:00-0500 Body weight 120.57 kg Hanh Sofia Other [employer] Other 11-19-2021 18:00-0500 Diastolic blood pressure 95 mm[Hg] Hanh Sofia Other [employer] Other 11-19-2021 18:00-0500 Respiratory rate 18 /min Hanh Sofia Other [employer] Other 11-19-2021 18:00-0500 SaO2% (BldA) [Mass fraction] 98 % Hanh Menjivar Other [facility] [employer] Other 11-19-2021 18:00-0500 Systolic blood pressure 158 mm[Hg] Hanh Menjivar Other [facility] [employer] Other Encounters Encounter Date Encounter Type Care Provider Facility Start: 01-21-2025 End: 01-21-20[facility] Start: 11-29-2024 End: 11-29-2024 ambulatory Ermelinda Jiang Facility:[facility] Start: 11-29-2024 End: 11-29-2024 Patient encounter procedure [facility] Krish Work Phone: Start: 08-17-2024 End: 08-17-2024 ambulatory [facility] Start: 07-25-2024 End: 07-25-2024 ambulatory [facility] Start: 07-06-2024 End: 07-06-2024 ambulatory [facility] Start: 07-04-2024 End: 07-04-2024 ambulatory Ayleen Hatfield [facility] Work Phone: Start: 07-04-2024 End: 07-04-2024 Departed Referred [employer]ORTGAGE FUNDERLaci Hatfield Work Phone: [facility] Work Phone: Start: 07-04-2024 End: 07-04-2024 Patient encounter procedure SATHISH Hatfield Work Phone: [facility] Work Phone: Start: 03-27-2024 End: 03-27-2024 ambulatory [facility] Start: 09-27-2023 End: 09-27-2023 Admission to same day surgery center [employer] Linda Nina Work Phone: [facility] Work Phone: Start: 09-27-2023 End: 09-27-2023 ambulatory SATHISH Prajapati Nina Work Phone: [facility] Work Phone: Start: 08-22-2023 End: 08-22-2023 ambulatory Baltazar Askew Other [employer] Other Start: 08-22-2023 Office outpatient ne w 30 minutes Baltazar Askew [facility] Start: 07-09-2023 End: 07-09-2023 ambulatory Cyndiashley Haas Other [employer] Other Start: 07-09-2023 Office outpatient visit 15 minutes Cyndi Samina [facility] Start: 03-30-2023 Office outpatient visit 15 minutes Cyndi Samina [facility] Start: 03-30-2023 End: 03-30-2023 ambulatory Cyndi Samina Other [employer] Other Start: 03-30-2023 End: 03-30-2023 Departed [employer] REGISTERED NURSE CARDIAC TELEMETRY-C Cyndiashley Haas Work Phone: [facility] [place] Work Phone: Start: 01-08-2023 End: 01-09-[address] DOCTOR OLIVEIRA Facility:[facility] Start: 11-10-2022 End: 11-11-[address] DOCTOR OLIVEIRA Facility:[facility] Start: 2022 End: 2022 ambulatory AKHIL SALGUERO . [employer] Other Start: 2022 Office outpatient visit 15 minutes Cyndi Samina [facility] Start: 04-16-2022 End: 04-17-2022 ambulatory HAL REYES Facility:[facility] Start: 11-19-2021 End: 11-19-2021 ambulatory Hanh Franklinault Other [employer] Other Start: 11-19-2021 Office outpatient ne w 20 minutes Hanh Sofia [facility] Start: 04-08-2017 End: 04-09-2017 Ambulatory [facility] Facility:[email or web address] Start: 04-04-2017 End: 04-05-2017 Ambulatory DEFAULT PHYSICIAN Facility:[facility] [[email or web address] Procedures Date Procedure Procedure Detail Performing Clinician Start: 11-29-2024 Plain chest X-ray Start: 09-27-2023 Esophagogastroduodenoscopy SATHISH Wood Work Phone: Start: 03-30-2023 Piperacillin/tazobactam Cyndi Haas Other Plan of Treatment Date Care Activity Detail Author Start: 07-04-2024 Bacteria identified in Urine by Culture Urine Culture [facility] Start: 07-04-2024 Urine culture [facility] Start: 09-27-2023 [facility] Start: 03-30-2023 Bacteria identified in Urine by Culture [facility] Patient Education Esophageal Dilation [facility] Work Phone: Payers Date Payer Category Payer Self-pay [id number] 1965 Unknown [id number] [id number] [id number] 1965 Unknown [id number] [id number] [id number] 1965 Unknown [id number] 2.16.84 [id number] 1965 Unknown [id number] 2.16.84 [id number] 1957 Medicaid [id number] 1957 Unknown [id number] Unknown Unknown [id number] 2.16.8 [id number] Unknown [id number] 2.16.8 [id number] Social History Date Type Detail Facility Unknown if ever smoked [employer] Other Sex Assigned At Sex Assigned At Bir th [employer] Other Start: 01-03-2018 End: 09-27-2023 Tobacco smoking status NHIS Smoker (finding) [facility] Start: 1965 Sex Assigned At Female F [facility] Start: 11-29-2024 End: 11-29-2024 Sex Female (finding) [facility] Medical Equipment Procedure Code Equipment Code Equipment Origin al Text Equipment Identifier Dates Blood Sugar Diagnostic (True Metrix Glucose Test Strip) strip Start: 07-04-2024 Blood Sugar Diagnostic (True Metrix Glucose Test Strip) strip Start: 07-04-2024 Blood Sugar Diagnostic (True Metrix Glucose Test Strip) strip Start: 07-04-2024 Goals Date Patient Goal Desired Activity /State Clinical Notes 02-15-2017 to 01-21-2025 Note Date & Type Note Facility 01-21-2025 Note [facility] [facility] Subjective Bora Castaneda is a 59 y.o. year old female patient being seen for 6 mo follow up CHF, hypertension, and non-obstructive CAD. Denies chest pain, SOB, and palpitations. No recent labs. Patient Active Problem List Diagnosis Chronic obstructive lung disease (CMS/HCC) Congestive heart failure (CMS/HCC) Edema of lower extremity Gastric reflux Hypertensive disorder Sleep apnea Tobacco user Angina pectoris, unstable (CMS/HCC) Acquired cyst of kidney Back pain Chronic systolic heart failure (CMS/HCC) Dilated cardiomyopathy (CMS/HCC) Dysphagia Dysuria Exacerbation of asthma Kidney stones Microhematuria Mixed hyperlipidemia Primary generalized (osteo)arthritis Syncope and collapse Type 2 diabetes mellitus without complications (CMS/HCC) Chronic diarrhea Dysmenorrhea Encounter for gynecological examination (general) (routine) without abnormal findings Left ovarian cyst Pain in female pelvis Vaginal discharge Family History Problem Relation Name Age of Onset Coronary artery disease Father Diabetes Brother Social History Tobacco Use Smoking status: Every Day Current packs/day: 1.00 Types: Cigarettes Smokeless tobacco: Never Substance Use Topics Alcohol use: Yes Comment: OCCASIONAL Drug use: Never VICKY Ailyn is seen in follow-up. This is the first time I am meeting her. She used to see Dr. Jessica Laguna. She is a 59-year-old woman with history of diabetes, obesity, hypertension as well as COPD. She was evaluated in cardiology clinic in 2019 for due to systolic heart failure with an EF of 35 to 40% on echocardiogram in May 2024. Cardiac catheterization June 2024 showed mild to moderate nonobstructive coronary artery disease. She has been managed with medical therapy. She has hyperlipidemia and hypertension on treatment. Today she reports that she has no chest pain. She has shortness of breath on exertion NYHA class II symptoms. No significant lower extremity edema. She feels tired and fatigued. She does not have palpitations, her dizziness is mild on standing. She denies syncope. She is not very active physically. Review of Systems Neurological: Positive for dizziness and light-headedness. All other systems reviewed and are negative. Objective Visit Vitals BP 109/68 (BP Location: Left arm, Patient Position: Sitting) Pulse 90 Ht 1.626 m (5' 4 ) Wt 112 kg (248 lb) SpO2 97% BMI 42.57 kg/m??? OB Status Postmenopausal Smoking Status Every Day BSA 2.25 m??? Physical Exam Constitutional: Appearance: She is well-developed. She is obese. She is not ill-appearing. HENT: Head: Normocephalic and atraumatic. Nose: Nose normal. Eyes: General: No scleral icterus. Pupils: Pupils are equal, round, and reactive to light. Neck: Thyroid: No thyromegaly. Vascular: No JVD. Cardiovascular: Rate and Rhythm: Normal rate and regular rhythm. Pulses: Radial pulses are 2+ on the right side and 2+ on the left side. Heart sounds: Normal heart sounds. No murmur heard. No friction rub. No gallop. Pulmonary: Effort: Pulmonary effort is normal. No respiratory distress. Breath sounds: Normal breath sounds. No wheezing or rales. Chest: Chest wall: No tenderness. Abdominal: General: Bowel sounds are normal. There is no distension. Palpations: Abdomen is soft. Tenderness: There is no abdominal tenderness. Musculoskeletal: General: No swelling. Cervical back: Neck supple. Skin: General: Skin is warm and dry. Neurological: General: No focal deficit present. Mental Status: She is alert and oriented to person, place, and time. Psychiatric: Mood and Affect: Mood normal. Behavior: Behavior is cooperative. Judgment: Judgment normal. Allergies Allergies Allergen Reactions Ranitidine Hcl Medications Current Outpatient Medications: albuterol (Ventolin HFA) 90 mcg/actuation inhaler, Inhale 2 puffs every 6 (six) hours if needed., Disp: , Rfl: aspirin 81 mg chewable tablet, Chew 1 tablet (81 mg) once daily as directed., Disp: 90 tablet, Rfl: 3 cetirizine (ZyrTEC) 10 mg tablet, Take 1 tablet by mouth in the morning., Disp: , Rfl: empagliflozin (Jardiance) 25 mg, Take 1 tablet by mouth in the morning., Disp: , Rfl: gabapentin (Neurontin) 600 mg tablet, Take 2 tablets by mouth in the morning, at noon, and at bedtime., Disp: , Rfl: metFORMIN (Glucophage) 1,000 mg tablet, TAKE 1 TABLET BY MOUTH WITH meal once DAILY, Disp: , Rfl: metoprolol succinate XL (Toprol-XL) 25 mg 24 hr tablet, Take 1 tablet (25 mg) by mouth in the morning. Do not crush or chew. (Patient taking differently: Take 25 mg by mouth in the morning. Total of 75mg daily), Disp: 90 tablet, Rfl: 3 metoprolol succinate XL (Toprol-XL) 50 mg 24 hr tablet, Take 1 tablet (50 mg) by mouth in the morning. Do not crush or chew. (Patient taking differently: Take 50 mg by mouth in the m (more content not included)... [facility] 11-29-2024 Evaluation note Diagnosis Onset Date Resolution Mild persistent asthma with (acute) exacerbation noneactive November 29, 2024 1:05pm Chest congestion noneactive November 1:05pm [facility] Work Phone: 1(599) 595-217811-22-2024 Note. Cardiology Follow Up Progress Note HPI: Bora Castaneda is a 59 y.o. female who has a past medical history of CHF (congestive heart failure) ([facility]), COPD (chronic obstructive pulmonary disease) (CMS/HCC), GERD (gastroesophageal reflux disease), Hypertension, and Sleep apnea. Patient presents for post cath follow up. She was found to have non obstructive CAD Cath performed on 07/25/2024. Patient adamantly denies any cardiac complaints or concerns. Patient denies any chest pain or shortness of breath. Patient denies any lower extremity edema, orthopnea, or proximal nocturnal dyspnea. No near-syncope or syncope. No dizziness or lightheadedness. She does endorse some nausea after taking her metformin. Cath access site is clean, dry, and intact. No issues. Cardiology ROS: 10 point ROS is performed [...] mouth in the morning. 90 tablet 3 cetirizine (ZyrTEC) 10 mg tablet Take 1 tablet by mouth in the morning. empagliflozin (Jardiance) 25 mg Take 1 tablet by mouth in the morning. gabapentin (Neurontin) 600 mg tablet Take 2 tablets by mouth in the morning, at noon, and at bedtime. ibuprofen 800 mg tablet TAKE 1 TABLET BY MOUTH WITH FOOD OR MILK THREE TIMES DAILY NEEDED isosorbide mononitrate ER (Imdur) 30 mg 24 hr tablet TAKE 1 TABLET BY MOUTH DAILY DIRECTED 90 tablet 3 metFORMIN (Glucophage) 1,000 mg tablet TAKE 1 TABLET BY MOUTH WITH meal once DAILY metoprolol succinate XL (Toprol-XL) 25 mg 24 hr tablet Take 1 tablet (25 mg) by mouth in the morning. Do not crush or chew. (Patient not taking: Reported on 07/25/2024) 90 tablet 3 metoprolol succinate XL (Toprol-XL) 50 mg 24 hr tablet Take 1 tablet (50 mg) by mouth in the morning. Do [...] injector INJECT 0.75mg SUBCUTANEOUSLY ONCE A WEEK valACYclovir (Valtrex) 1 gram tablet Take 1 tablet by mouth in the morning, at noon, and at bedtime. No current facility-administered medications on file prior to visit. Allergies Ranitidine hcl Physical Exam Physical Exam VITAL SIGNS: BP 128/70 (BP Location: Left wrist, Patient Position: Sitting) Pulse 101 Ht 1.626 m (5' 4 ) Wt 114 kg (252 lb) SpO2 97% BMI 43.26 kg/m??? Constitutional: Well developed, Well nourished, No [...] Castaneda is a 59 y.o. female with Chronic congestive heart failure, unspecified heart failure type (CMS/HCC) Essential hypertension Coronary artery disease involving mentasta coronary artery of mentasta heart without angina pectoris Patient is on Toprol 50 mg daily and Jardiance for GDMT. HR is still elevated, but Bp is reportedly on lower end at home Will increase Toprol to 75 mg daily. Will need close follow up for uptitration of GDMT and addition of DENNISE/ARB/ARNi and spirinolactone Continue Aspirin, statin for non obstructive CAD Aggressive risk factor modification Plan of care discussed with patient. All questions were answered. Patient voices understandin (more content not included)...[facility] 07-25-2024 NotePatient: Bora Castaneda Procedure Information Date/Time: 07/25/24 0930 Procedures: Coronary angiography - PC APPROVED Right heart cath Location: [email or web address] / [facility] (Cath) Providers: Francine James MD Clinical information reviewed: Allergies Meds OB Status Physical Exam Airway Mallampati: III TM distance: >3 FB Neck ROM: full Cardiovascular Rhythm: regular Rate: normal Dental Pulmonary Abdominal Anesthesia Plan ASA 3 (Conscious sedation) Anesthetic plan and risks discussed with patient. Use of blood products discussed with patient who. Plan discussed with attending. [facility]iology Follow Up Progress Note Chief Complaint: follow up HPI: Bora Castaneda is a 59 y.o. female who has a past medical history of CHF (congestive heart failure) ([facility]), COPD (chronic obstructive pulmonary disease) ([facility]), GERD (gastroesophageal reflux disease), Hypertension, and Sleep [...] failure (CMS/HCC) Essential hypertension Angina pectoris, unstable (CMS/HCC) Tachycardia Patient has been very noncompliant with her medications, likely contributing to reduction in her ejection fraction. However, given her episodes concerning for unstable dominick (more content not included)...[facility]10-11-2024 Note. Cardiology Follow Up Progress Note Chief Complaint: [...] failure (CMS/HCC) Essential hypertension Angina pectoris, unstable (CMS/HCC) Tachycardia Patient has been very noncompliant with her medications, likely contributing to reduction in her ejection fraction. However, given her episodes concerning for unstable dominick (more content not included)...[facility]07-02-2024 Note. Cardiology Follow Up Progress Note Chief Complaint: [...] using 3rd constitution party telecommunication application (e.g., [employer]) is not HIPPA compliant and may carry [...] as needed Francine Schneider (more content not included)...[facility] Encounter Date Diagnosis Assessment Notes Treatment Notes Treatment Clinical Notes Jul, GERD (gastroesophageal reflux disease) (ICD-10 - K21.9) Patient is [...] her back that is throbbing in nature [facility] Other 10-14-2023 Evaluation note* Encounter Date Diagnosis [...] the shingles rash as needed for pain. 14 Oct, 2023 Congestion of respiratory tract (ICD-10 - J98.8) 14 Jun, 2023 Herpes zoster without complication (ICD-10 - B02.9) Shingles home care material was printed [facility] Other 07-05-2023 Evaluation note* Encounter Date Diagnosis [...] fever Mar, Hematuria, unspecified (ICD-10 - R31.9) [facility] Other 09-28-2022 Evaluation note* Encounter Date Diagnosis Assessment Notes Treatment Notes Treatment Clinical Notes May, Abdominal pain of unknown etiology (ICD-10 - R10.9) Abdominal pain: adult home care material was printed Go directly to the ER for further evaluation of your abdominal pain. May, Glucosuria (ICD-10 - R81) [facility] Other 02-24-2022 Evaluation note* Encounter Date Diagnosis [...] carb intake to help balance out increase [facility] Other 05-23-2017 History general Narrative - Reported* [...] heart catheterization Hospitalization History Weak Heart 2016 [facility] Other Evaluation noteNo assessment information available [facility] Work Phone: Evaluation note* Diagnosis Onset Date Resolution Status Dysphagia acute [facility] Work Phone: Evaluation note* Diagnosis Onset Date Resolution Status Dysuria acute [facility] Work Phone: Hospital Discharge instructions [...] if you have any problems. -Office number [phone] Work Phone: Summary Purpose Family History No Family History Records Found Relationship Condition Age at Onset Recorded Date/T jose roberto father Myocardial infarction Unknown brother Diabetes mellitus Unknown Relationship Condition Age at Onset Recorded Date/T jose roberto father Myocardial infarction Unknown brother Diabetes mellitus Unknown father Heart disease Unknown Advance Directives No Advanced Directives Records Found Advance Directive Response Recorded Date/ Time Advance Directives No May 10:01am Advance Directive Response Recorded Date/ Time Advance Directives No May 9:01am Chief Complaint and Reason for Visit Chief Complaint GERD, Abdominal Pain Reason for Visit Dysphagia Chief Complaint Possible UTI Dysuria Reason for Visit Dysuria Chief Complaint Admit Date cough, congestion November 29, 2024 1:05 pm Chief Complaint Admit Date cough, congestion November 29, 2024 1:05 pm R09.89 - Other specified symptoms and si gns involv November 29, 2024 2:05pm Reason for Visit Admit Date Mild persistent asthma with (acute) exac erbation November 29, 2024 1:05pm Chest congestion November 29, 2024 1:05 pm Additional Source Comments INFORMATION SOURCE (unrecogn ized section and content) DATE CREATED AUTHOR 03/22/2018 [facility] DATE CREATED AUTHOR AUTHOR'S ORGANIZ ATION 01/22/2021 [facility] DATE CREATED AUTHOR AUTHOR'S ORGANIZ ATION 01/13/2023 [facility] DATE CREATED AUTHOR AUTHOR'S ORGANIZ ATION 12/01/2024 [facility] DATE CREATED AUTHOR AUTHOR'S ORGANIZ ATION 01/22/2025 [facility] REASON FOR VISIT (unrecogniz ed section [...] Member Role Status Dates Linda Wood APRN REGISTERED NURSE CARDIAC TELEMETRY-C Primary Care Provide r Active Team Status: Inactive Member Role Status Dates Edd Day MD Attending Provider Active Linda Wood APRN REGISTERED NURSE CARDIAC TELEMETRY-Jeremias Primary Care Provide r Active Team Status: Inactive Member Role Status Dates Ayleen Hatfield APRN Attending Provider Active S tart: July 04, 2024 End: July 04, 2024 Jessica Marcos APRN REGISTERED NURSE CARDIAC TELEMETRY-C Primary Care Provider Act machelle Start: July 04, 2024 End: July 04, 2024 Team Status: Inactive Member Role Status Dates Ayleen Hatfield APRN Attending Provider Active S tart: July 04, 2024 End: July 04, 2024 Team Status: Active Member Role Status Dates NON STAFF Primary Care Provider Active Team Status: Inactive Member Role Status Dates Ermelinda Jiang APRN Attending Provider Active Start: November 29, 2024 End: November 29, 2024 NON STAFF Primary Care Provider Active Start: November 29, 2024 End: November 29, 2024 Team Status: Inactive Member Role Status Dates NON STAFF Primary Care Provider Active Start: November 29, 2024 End: November 29, 2024 Ermelinda Jiang APRN Attending Provider Active Start: November 29, 2024 End: November 29, 2024 Goals (unrecognized section and content) Goals [...] BE BASED ON THE PRIMARY CLINICAL RECORDS. [facility]. provides no warranty or guarantee of the accuracy or completeness of information in this document.
--- OUTSIDE RECORDS SUMMARY | 2025-03-09 06:36 | XMS_ITS | Clinical Summary ---
Author Organization [facility] Address [address] [place] [address] Care Team Providers Care Air Conditioning Service Technician Name Role Phone Unavailable Primary Care Provider Unavailabl e Allergies Active Allergy Reactions Criticality Noted Date Comments Ranitidine Hcl 05/20/2022 Medications albuterol (Ventolin HFA) 90 mcg/actuation inhaler Inhale 2 puffs every 6 (six) hours if needed. Active cetirizine (ZyrTEC) 10 mg tablet Take 1 tablet by mouth in the morning. Active empagliflozin (Jardiance) 25 mg Take 1 tablet by mouth in the morning. Active gabapentin (Neurontin) 600 mg tablet Take 2 tablets by mouth in the morning, at noon, and at bedtime. Active metFORMIN (Glucophage) 1,000 mg tablet TAKE 1 TABLET BY MOUTH WITH meal once DAILY Active montelukast (Singulair) 10 mg tablet Take 1 tablet by mouth in the morning. Active pantoprazole (ProtoNix) 40 mg EC tablet Take 1 tablet by mouth in the morning. Active tiotropium (Spiriva Respimat) 2.5 mcg/actuation inhaler Active valACYclovir (Valtrex) 1 gram tablet Take 1 tablet by mouth in the morning, at noon, and at bedtime. Active Trulicity 0.75 mg/0.5 mL pen injector Inject 3.5 mg under the skin 1 (one) time per week. 02/29/20 24 Active metoprolol succinate XL (Toprol-XL) 25 mg 24 hr tabletIndications: Palpitations Take 1 tablet (25 mg) by mouth in the morning. Do not crush or chew. 90 tablet 3 03/27/20 24 025 Active aspirin 81 mg chewable tabletIndications: Essential hypertension Chew 1 tablet (81 mg) once daily as directed. 90 tablet 3 07/06/20 Active ARIPiprazole (Abilify) 5 mg tablet Take 5 mg by mouth in the morning. 08/15/20 Active metoprolol succinate XL (Toprol-XL) 25 mg 24 hr tabletIndications: Palpitations Take 1 tablet (25 mg) by mouth in the morning. Do not crush or chew. 90 tablet 3 08/17/20 24 025 Active Additional Information Patient taking differently:25 mg oral Daily,Total of 75mg daily, Reported on 01/21/2025 metoprolol succinate XL (Toprol-XL) 50 mg 24 hr tabletIndications: Palpitations Take 1 tablet (50 mg) by mouth in the morning. Do not crush or chew. 90 tablet 3 01/03/20 25 026 Active Additional Information Patient taking differently:50 mg oral Daily,Total of 75mg daily, Reported on 01/21/2025 atorvastatin (Lipitor) 80 mg tabletIndications: Coronary artery disease involving tanana coronary artery of tanana heart without angina pectoris,Mixed hyperlipidemia Take 1 tablet (80 mg) by mouth at bedtime. 90 tablet 3 01/22/20 25 026 Active lisinopril 5 mg tabletIndications: Chronic systolic congestive heart failure (CMS/HCC) Take 1 tablet (5 mg) by mouth in the morning. 90 tablet 3 01/22/20 25 026 Active spironolactone (Aldactone) 25 mg tabletIndications: Chronic systolic congestive heart failure (CMS/HCC) Take 0.5 tablets (12.5 mg) by mouth in the morning. 45 tablet 3 01/22/20 25 026 Active Active Problems Problem Noted Date Diagnosed Date Chronic diarrhea 01/21/2025 Dysmenorrhea 01/21/2025 Encounter for gynecological examination (general) (routine) without abnormal findings 01/21/2025 Left ovarian cyst 01/21/2025 Pain in female pelvis 01/21/2025 Vaginal discharge 01/21/2025 Chronic systolic heart failure 08/17/2024 Dilated cardiomyopathy 08/17/2024 Dysphagia 08/17/2024 Dysuria 08/17/2024 Exacerbation of asthma 08/17/2024 Mixed hyperlipidemia 08/17/2024 Primary generalized (osteo)arthritis 08/17/2024 Syncope and collapse 08/17/2024 Type 2 diabetes mellitus without complications 1 10/17/2023 Angina pectoris, unstable 07/06/2024 Chronic obstructive lung disease 12/06/2018 Edema of lower extremity 12/06/2018 Hypertensive disorder 12/06/2018 Sleep apnea 12/06/2018 Tobacco user 12/06/2018 Congestive heart failure 04/07/2017 Gastric reflux 04/07/2017 Acquired cyst of kidney 06/29/2013 Back pain 06/29/2013 Kidney stones 06/29/2013 Microhematuria 06/29/2013 Encounters Date Type Department Care Team Description 01/21/2025 1:45 PM EDT Office Visit [facility] [address] [place] [address] Carlos Richard MD Chronic systolic congestive heart failure (CMS/HCC) (Primary Dx); Coronary artery disease involving tanana coronary artery of tanana heart without angina pectoris; Primary hypertension; Mixed hyperlipidemia 01/02/[address] [facility] [address] [place] [address] Diana Vyas MA Palpitations from Last 3 Months Family History Medical History Relation Name Comments Diabetes Brother Coronary artery disease Father Relation Name Status Comments Brother Father Social History Tobacco Use Types Packs/Day Years Used Date Smoking Tobacco: Every Day Cigarettes Smokeless Tobacco: Never Tobacco Cessation:Ready to Q uit: Not Asked; Counseling Given: Not Answered Alcohol Use Standard Drinks/Week Comments Yes 0 (1 standard drink = 0.6 oz pur e alcohol) OCCASIONAL [place] Safety & Environment Answer Date Rec orded Fear of Current or Ex-Partner Not on file Emotionally Abused Not on file 11/17/2023 Physically Abused Not on file 11/17/2023 Sexually Abused Not on file 11/17/2023 Physically or Sexually Abused Not on file Comments Unknown Sex and Gender Information Value Date Recorded Sex Assigned at Not on file Legal Sex Female 11:57 PM EDT Gender Identity Not on file Sexual Orientation Not on file Last Filed Vital Signs Vital Sign Reading Time Taken Comments Blood Pressure 109/68 01/21/2025 1:46 PM EDT Pulse 90 01/21/2025 1:46 PM EDT Temperature - - Respiratory Rate 13 07/25/2024 11:30 AM EDT Oxygen Saturation 97% 01/21/2025 1:46 PM EDT Inhaled Oxygen Concentration - - Weight 112 kg (248 lb) 01/21/2025 1:46 PM EDT Height 162.6 cm (5' 4 ) 01/21/2025 1:46 PM EDT Body Mass Index 42.57 01/21/2025 1:46 PM EDT Plan of Treatment Upcoming Encounters Date Type Department Care Team (Late st Contact Info) Description 04/22/2025 2:00 PM EDT Office Visit [facility] [address] [place] [address] Carlos Richard MD [address] [facility] [address] [facility] [place] [id number] Health Maintenance Due Date Last Done Comments CT Colonography 1967 Colonoscopy 1967 Colorectal Cancer Screening 1967 Diabetes: Hemoglobin A1C 1967 FIT-DNA 1967 FIT 1967 FOBT 1967 Sigmoidoscopy 1967 Diabetes: Retinopathy Screening 1977 Depression Screening 1979 Diabetes: Urine Protein Screening 1986 Hepatitis B Vaccines (1 of 3 - 19+ 3-dose series) 1986 Pap Smear 1988 Cervical Cancer Screening 1997 HPV/Cotest 1997 Mammogram 2007 Zoster Vaccines (1 of 2) 2017 Pneumococcal Vaccine: Pediatrics (0 to 5 Years) and At-Risk Patients (6 to 64 Years) (2 of 2 - PCV) 02/11/2022 02/11/2021 COVID-19 Vaccine (3 - season) 2024 04/19/2021, 03/28/2021 Influenza Vaccine (Season Ended) 2025 09/04/2022, 06/25/2021, 07/15/2020, Additional history exists Adult Tetanus 02/11/2031 02/11/2021 HIB Vaccines Aged Out No longer eligi ble based on patient's age to complete this topic HPV Vaccines Aged Out No longer eligi ble based on patient's age to complete this topic IPV Vaccines Aged Out No longer eligi ble based on patient's age to complete this topic Meningococcal B Vaccine Aged Out No l onger eligible based on patient's age to complete this topic Meningococcal Vaccine Aged Out No niko iva eligible based on patient's age to complete this topic Rotavirus Vaccines Aged Out No longer eligible based on patient's age to complete this topic Insurance [employer] [place] [employer]
--- OUTSIDE RECORDS SUMMARY | 2025-03-09 06:36 | XMS_ITS | Clinical Summary ---
Author Organization [facility] Address [address] [place] [id number] Care Team Providers Care Dyehouse Worker Name Role Phone Linda Wood CNP Primary Care Provider Allergies Active Allergy Reactions Criticality Noted Date Comments Ranitidine Hcl Rash 06/29/2013 Medications lansoprazole 30 mg capsule Take 30 mg by mouth twice daily. Active Active Problems Problem Noted Date Diagnosed Date Microhematuria 06/29/2013 Acquired cyst of kidney 06/29/2013 Back pain 06/29/2013 Kidney stones 06/29/2013 Family History Medical History Relation Comments None Father None Mother Relation Status Comments Father Mother Social History Tobacco Use Types Packs/Day Years Used Date Smoking Tobacco: Every Day Cigarettes Smokeless Tobacco: Current Alcohol Use Standard Drinks/Week Comments No 0 (1 standard drink = 0.6 oz pur e alcohol) Comments Unknown Sex and Gender Information Value Date Recorded Sex Assigned at Not on file Legal Sex Female 12:56 PM EDT Gender Identity Not on file Sexual Orientation Not on file Last Filed Vital Signs Vital Sign Reading Time Taken Comments Blood Pressure 124/82 06/29/2013 11:07 AM EDT Pulse 76 06/29/2013 11:07 AM EDT Temperature - - Respiratory Rate - - Oxygen Saturation - - Inhaled Oxygen Concentration - - Weight 109.3 kg (240 lb 14.4 oz) 2012 11:07 AM EDT Height - - Body Mass Index - - Plan of Treatment Health Maintenance Due Date Last Done Comments Anxiety Screening 1985 Depression Screening 1985 HIV Screening 1985 Hepatitis C Screening 1985 DTaP,Tdap,Td Vaccine (1 - Tdap) 1986 Hepatitis B Vaccine (1 of 3 - 19+ 3-dose series) 06/23 Cervical Cancer Screening [address] Colonography 2012 Cologuard (FIT-DNA) 2012 Colonoscopy 2012 Colorectal Cancer Screening 2012 Diabetes Screening 2012 Fecal Occult Blood 2012 Lipid Screening 2012 Sigmoidoscopy 2012 Pneumococcal Vaccine: 50+ (1 of 1 - PCV) 2017 Shingrix Vaccine (1 of 2) 2017 Covid-19 Vaccine (1 - 2023- season) 2024 Influenza Vaccine (Season Ended) 2025 Care Teams Dyehouse Worker Relationship Specialty Start Date End Date Linda Wood, AVIATION PROJECT ENGINEER PCP - General Family Medicine 06/13/13
--- OUTSIDE RECORDS SUMMARY | 2025-03-09 06:36 | XMS_ITS | Patient Health Record ---
Author Organization [facility] Address [address], [place] [id number] Care Team Providers Care Post Graduate Internship Name Role Phone Cynthia Morgan Primary Care Provider Jonnie Biswas Unavailable [phone] Allergies Allergen (clinical drug ingredient) Drug/Non Drug Allergy documented on EMR Reaction Allergy Type Onset Date Status Zantac Unknown Drug Allergy Active Reason For Referral No Information Medications Medication SIG (Take, Route, Frequency, Duration) Notes Start Date End Date Status Isosorbide Dinitrate 30 MG 1 tablet Oral ly Once a day Active Valsartan 80 MG 1 tablet Orally Once a day Active Pantoprazole Sodium 40 MG 1 tablet Orall y Once a day for 30 day(s) Active Gabapentin 600 MG 2 tablets [address] ee times a day Active Coreg CR 80 MG 1 capsule with food Orally Once a day Active Singulair 10 MG 1 tablet Orally Once a day for 30 day(s) Active Spiriva Respimat 1.25 MCG/ACT 2 puffs Inhalation Once a day Active Bumetanide 2 MG 1 tablet Orally Twic e a day Active Aspirin 81 81 MG 1 tablet Orally Once a day Active metFORMIN HCl 1000 MG 1 tablet with a me al Orally Once a day for 30 day(s) Active Jardiance 25 MG 1 tablet Orally Once a day for 30 day(s) Active Potassium Chloride ER 20 MEQ 1 tablet with food Orally Once a day Active Atorvastatin Calcium 20 MG 1 tablet Oral ly Once a day Active Ventolin HFA 108 (90 Base) MCG/ACT 2 puffs as needed Inhalation every 6 hrs Active Social History Tobacco Use: Social History Observation Description Date Details (start date - stop date) Current Smoker NA - NA Tobacco Use/Smoking Question Answer Notes Are you a current smoker Are you interested in quitting? Ready to quit Problems Problem Type SNOMED Code ICD Code Onset Dates Problem Status W/U Status Risk Notes Problem Essential hypertension (28679288) Essential (primary) hypertension (I10) Active confirmed Problem Chronic systolic heart failure (571478984) Chronic systolic (congestive) heart failure (I50.22) Active confirmed Problem Type II diabetes mellitus without complication (748499809) Type 2 diabetes mellitus without complications (E11.9) Active confirmed Problem Mixed hyperlipidemia (428730907) Mixed hyperlipidemia (E78.2) Active confirmed Problem Dilated cardiomyopathy (777440144) Dilated cardiomyopathy (I42.0) Active confirmed Problem Exacerbation of asthma (733362717) Unspecified asthma with (acute) exacerbation (J45.901) Active confirmed Problem Primary generalised osteoarthritis (459205494) Primary generalized (osteo)arthritis (M15.0) Active confirmed Problem Syncope and collapse (600409078) Syncope and collapse (R55) Active confirmed Plan Of Treatment No Information Insurance Providers Payer Name Payer Address Payer Phone Subscriber Number Group Number Insured Name Patient Relationship to Insured Coverage Start Date Coverage End Date [employer] [address] [place] [address] [id number] Lisbeth Castaneda Self - patient is the insured Medical (General) History Medical History History ICD Code Diabetes High Blood pressure High Cholesterol Palpitaions Shortness of Breath Swelling Lightheadedness Memory Loss / Confusion Nervousness Depression Diabetes Syncope Surgical History Surgery Date(Month/Year) Gallbladder C-Sections x 3 Right Breast Biopsy Hospitalization History Reason Date(Month/Year) Gallbladder C-Sections x 3 Right Breast Biopsy Difficulty Breathing
--- OUTSIDE RECORDS SUMMARY | 2025-03-09 06:36 | XMS_ITS | Patient Health Record ---
Author Organization [facility] Address [address] [place], [place] [id number] Care Team Providers Care Derrick Builder Name Role Phone Linda Wood Primary Care Provider [phone] Allergies Allergen (clinical drug ingredient) Drug/Non Drug Allergy documented on EMR Reaction Allergy Type Onset Date Status Zantac 360 Rash Drug Allergy 04/25/2014 Activ e Results Component Value Reference Range Notes POCT A1C Reviewed date:01/28/2025 04:18:40 PM Interpretation: Performing Lab: Notes/Report: Result 6.9 0-5.6 % Reason For Referral No Information Medications Medication SIG (Take, Route, Frequency, Duration) Notes Start Date End Date Status Trulicity 4.5 MG/0.5ML 4.5 mg Subcutaneo us Once a week for 90 days Active Singulair 10 MG 1 tablet Orally Once a day for 90 days Active Gabapentin 600 MG 2 tablets Orally Three times a day for 90 days Active Spiriva Respimat 90mcg Act machelle metFORMIN HCl 1000 MG 1 tablet with a me al Orally Once a day for 90 days Active Aspir-81 Active Jardiance 25 MG 1 tablet Orally Once a day for 90 days Active Metoprolol Tartrate 75 MG 1 tablet with food Orally Twice a day Active hydrOXYzine HCl 10 MG 1 tablet as needed Orally Once a day for 90 days 01/28/2025 Active Atorvastatin Calcium 80 MG 1 tablet Orally Once a day Active Albuterol Sulfate HFA 108 (90 Base) MCG/ACT 1 puff as needed Inhalation every 4 hrs Dispense 1 inhaler Active Spironolactone 25 MG 1 tablet Orally Active Ibuprofen 800 MG 1 tablet with food or milk as needed Orally every 8 hrs for 30 days Active Lisinopril 5 MG 1 tablet Orally Once a day Active Diflucan 150 MG 1 tablet Orally once a day for 2 days Take 1 tablet once, may repeat in 3-5 days if needed 01/28/2025 Active Pantoprazole Sodium 40 MG 1 tablet Orally twice a day Active Social History Tobacco Use: Social History Observation Description Date Details (start date - stop date) Current Smoker 06/20/1985 - NA Sex Assigned At : Social History Observation Description Sex Assigned At Female Tobacco Use/Smoking Question Answer Notes Tobacco use: current smoker patient enter ed data Are you interested in quitting? Not ready to tim t patient entered data How many cigarettes a day do you smoke? 6-10 patient entered data How soon after you wake up d o you smoke your first cigarette? 6-30 minutes patient entered data How often do you smoke cigarettes? every day patient entered data When did you start smoking? 06/20/1985 p atient entered data CAGE-AID Questionnaire (2018 Edition) Question Answer Notes Have you ever felt that you ought to cut down on your drinking or drug use? No patient entered data Have people annoyed you by c riticizing your drinking or drug use? No patient entered data Have you ever felt bad or gu ilty about your drinking or drug use? No patient entered data Have you ever had a drink or used drugs first thing in the morning to steady your nerves or to get rid of a hangover? No patient entered data CAGE-AID Score 0 Interpretation Negative PRAPARE Question Answer Notes Date Completed/Updated: 01/28/2025 susanne nt entered data What is your current housing situation? I have housing patient entered data Are you worried about losing your housing? No patient entered data What is the highest level of school that you have finished? Less than a high school degree patient entered data What is your current work situation? Otherwise unemployed but not seeking work (ex. student, retired, disabled, unpaid primary primary care physician) patient entered data Has lack of transportation k ept you from medical appointments, meetings, work or from getting things needed for daily living? No How often do you see or talk to people that you care about and feel close to? (For example: talking to friends on the phone, visiting friends or family, going to baptist or club meetings) More than 5 times a week patient entered data How stressed are you? Stress is when someone feels tense, nervous, anxious, or can't sleep at night because their mind is troubled A little bit patient entered data In the past year have you sp ent more than 2 nights in a row in a residential, shelter, assisted center, or juvenile correctional facility? No patient entered data Are you a refugee? No patient en tered data What country are you from? [place] quin chaidez entered data Do you feel physically and emotionally safe where you currently live? Yes patient entered data In the past year, have you b een afraid of your partner or ex-partner? No patient entered data PRAPARE Score: 5 Problems Problem Type SNOMED Code ICD Code Onset Dates Problem Status W/U Status Risk Notes Problem 519994350 Mixed hyperlipidemia (E78.2) Active confirmed Problem 92363020 Anxiety (F41.9) Active confirmed Problem Cigarette nicoti ne dependence without complication (F17.210) Active confirmed Problem 633239135 GERD without esophagitis (K21.9) Active confirmed Problem 157075051 Obesity, morbid, BMI 40.0-49.9 (E66.01) Active confirmed Problem 540414488 BMI 40.0-44.9, adult (Z68.41) Active confirmed Problem 246344839 Mild persistent asthma without complication (J45.30) Active confirmed Problem 170323602 Neuropathy (G62.9) Active confirmed Problem 779890630201461 Type 2 diabetes mellitus with hyperglycemia, without long-term current use of insulin (E11.65) Active confirmed Problem 39050235 Congestive heart failure, unspecified (I50.9) Active confirmed Vital Signs Heart Rate 91 /min 01/28/2025 Oswald Jorge 01/28/2025 03:53:57 PM EDT > Temperature 98.0 degrees Fahrenheit 01/28/2025 Liborio Shelley 01/28/2025 03:53:57 PM EDT > Respiratory Rate 18 /min 01/28/2025 Liborio Jorge 01/28/2025 03:53:57 PM EDT > Height-cm 161.29 cm 01/28/2025 Jorge, Ser vando 01/28/2025 03:53:57 PM EDT > Oximetry 97 % 01/28/2025 Jorge, Ser vando 01/28/2025 03:53:57 PM EDT > Blood pressure diastolic 65 mm Hg 01/28/2025 Joyce dovinos, Liborio 01/28/2025 03:53:57 PM EDT > Weight-kg 114.31 kg 01/28/2025 Jorge, Ser vando 01/28/2025 03:53:57 PM EDT > Height 63.50 in 01/28/2025 Jorge, Ser vando 01/28/2025 03:53:57 PM EDT > Blood pressure systolic 92 mm Hg 01/28/2025 Vald ovinos, Liborio 01/28/2025 03:53:57 PM EDT > Weight 252 lbs 01/28/2025 Jorge, Ser vando 01/28/2025 03:53:57 PM EDT > BMI 43.93 kg/m2 01/28/2025 Jorge, Ser vando 01/28/2025 03:53:57 PM EDT > Encounters Encounter Location Date Provider Diagnosis Main [address] [place], [place] [id number] 01/28/2025 Linda Wood Type 2 diabetes skinny itus with hyperglycemia, without long-term current use of insulin E11.65 ; GERD without esophagitis K21.9 ; Neuropathy G62.9 ; Mild persistent asthma without complication J45.30 ; Mixed hyperlipidemia E78.2 ; Congestive heart failure, unspecified I50.9 ; Anxiety F41.9 ; Cigarette nicotine dependence without complication F17.210 ; BMI 40.0-44.9, adult Z68.41 and Obesity, morbid, BMI 40.0-49.9 E66.01 [address] [place], [place] [id number] 03/08/2025 Linda Wood [place] [address] [place] [address] 01/29/2025 Linda Wood Neuropathy G62.9 [address] [place], [place] [id number] 02/06/2025 Linda Wood [address] [place], [place] [id number] 02/11/2025 Linda Wood [address] [place] [id number] 02/25/2025 Linda Wood [address] [place], [place] [id number] 03/04/2025 Linda Wood [address] [facility] [place] [place] [id number] 03/07/2025 Linda Wood Type 2 diabetes skinny itus with hyperglycemia, without long-term current use of insulin E11.65 Assessments Encounter Date Diagnosis (ICD Code) Assessment Notes Treatment Notes Treatment Clinical Notes Section Notes 03/07/2025 Type 2 diabetes mellitus with hyperglycemia, without long-term current use of insulin (ICD-10 - E11.65) 01/29/2025 Neuropathy (ICD-10 - G62.9) 01/28/2025 GERD without esophagitis (ICD-10 - K21.9) GERD stable. Will continue current medications. F/u 3 months & PRN 01/28/2025 Type 2 diabetes mellitus with hyperglycemia, without long-term current use of insulin (ICD-10 - E11.65) DM stable. Will continue current medications. Encouraged healthy diet and exercise. Pt is prone to yeast infections with the Jardiance, will give rx for diflucan. F/u 3 months & PRN 01/28/2025 Neuropathy (ICD-10 - G62.9) Pt is stable on current medications. Will continue current medications. OARRS reviewed. Rx sent. F/u 3 months & PRN 01/28/2025 Mild persistent asthma without complication (ICD-10 - J45.30) Asthma stable. Will continue current medications. F/u 3 months & PRN 01/28/2025 Mixed hyperlipidemia (ICD-10 - E78.2) Pt is stable on current medications. Will continue current medications. F/u 3 months & PRN 01/28/2025 Congestive heart failure, unspecified (ICD-10 - I50.9) Pt to continue to f/u with Cardiology 01/28/2025 Anxiety (ICD-10 - F41.9) Will start hydroxyzine to help with symptoms. Discussed potential side effects. F/u 3 months & PRN 01/28/2025 Cigarette nicotine dependence without complication (ICD-10 - F17.210) Patient provided with [phone] phone line. 01/28/2025 BMI 40.0-44.9, adult (ICD-10 - Z68.41) Body Mass Index: Care Instructions material was printed 01/28/2025 Obesity, morbid, BMI 40.0-49.9 (ICD-10 - E66.01) Plan Of Treatment Next Appt Details Provider Name:Linda ramirez, 05/06/2025 02:00:00 PM, [address] [place], [place], [id number], Insurance Providers Payer Name Payer Address Payer Phone Subscriber Number Group Number Insured Name Patient Relationship to Insured Coverage Start Date Coverage End Date [facility] [address] [place], [place] [id number] Lisbeth Castaneda Self - patient is the insured Medicaid CFC after [facility] [address] [place] [address] [id number] Lisbeth Castaneda Self - patient is the insured 4 Medical (General) History Medical History History ICD Code Gastroesophageal Reflux Disease Ovarian Cyst DM Type 2 Hyperlipidemia Congestive Heart Failure Surgical History Surgery Date(Month/Year) Cholecystectomy Tubal Ligation Breast Biopsy - Right Carpal Tunnel Surgery - Left Section - 3 or more Colonoscopy, COMMENTS: 2005--normal EGD, COMMENTS: 2005--Acid reflex
--- OUTSIDE RECORDS SUMMARY | 2025-03-09 06:37 | XMS_ITS | Referral Summary ---
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 Name Role Phone Unavailable Primary Care Provider Unavailabl e Encounters Date Type Department Care Team Description 01/21/2025 1:45 PM EDT Office Visit [facility] [address] [place] [phone] Carlos Richard MD Chronic systolic congestive heart failure (CMS/HCC) (Primary Dx); Coronary artery disease involving stebbins coronary artery of stebbins heart without angina pectoris; Primary hypertension; Mixed hyperlipidemia 01/02/2025 Refill [facility] [address] [place] [address] Diana Vyas MA Palpitations from Last 3 Months Allergies Active Allergy Reactions Criticality Noted Date [...] daily as directed. 90 tablet 3 07/06/20 24 Active ARIPiprazole (Abilify) 5 mg tablet Take [...] 80 mg tabletIndications: Coronary artery disease involving stebbins coronary artery of stebbins heart without angina pectoris,Mixed hyperlipidemia Take 1 [...] pain 06/29/2013 Kidney stones 06/29/2013 Microhematuria 06/29/2013 Social History Tobacco Use Types Packs/Day Years [...] Description 04/22/2025 2:00 PM EDT Office Visit [facility] [address] [place] [address] Carlos Richard MD [address] [facility] [address] [facility] [place] [place] [phone] Insurance [employer] [place] [employer]
--- OUTSIDE RECORDS SUMMARY | 2025-03-09 06:37 | XMS_ITS | Patient Health Record ---
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 Role Phone Margareth Del Cid Primary Care Provider [phone] Melissa Carnes Unavailable [phone] Jessica Marcos Unavailable [phone] Allergies Allergen (clinical drug ingredient) Drug/Non Drug Allergy documented on EMR Reaction Allergy Type Onset Date Status Zajossekevon hives Drug Allergy Active Results Component Value Reference Range Notes Hemoglobin A1c Reviewed date:05/02/2024 02:53:29 PM Interpretation:8 Performing Lab: Notes/Report: 8 Hemoglobin A1c 8 5 - 7.9 % Hemoglobin A1c Reviewed date:08/02/2024 02:07:54 PM Interpretation:7.3 Performing Lab: Notes/Report: 7.3 Hemoglobin A1c 7.3 5 - 7.9 % Hemoglobin A1c Reviewed date:11/12/2024 02:00:53 PM Interpretation:7.3 Performing Lab: Notes/Report: 7.3 Hemoglobin A1c 7.3 5 - 7.9 % Reason For Referral No Information Medications Medication SIG (Take, Route, Frequency, Duration) Notes Start Date End Date Status Aspir-81 81 MG 1 tablet Orally Once a day *CARDIOLOY Active Spiriva Respimat 1.25 MCG/ACT 2 puffs Inhalation Once a day for 30 days Active Albuterol Sulfate HFA 108 (90 Base) MCG/ACT 2 puffs as needed Inhalation every 6 hrs for 30 days Active Trulicity 3 MG/0.5ML 3 mg Subcutaneous o nce a week Active Metoprolol Succinate 50 MG 1 capsule Orally Once a day Active Montelukast Sodium 10 MG 1 tablet Orally Once a day for 30 days 01/30/2024 Active Klor-Con M20 20 MEQ 1 tablet with food Orally Once a day *CARDIOLOGY Active Jardiance 25 MG 1 tablet in the morn ing Orally Once a day for 30 days Active Abilify 5 MG 1 tablet Orally Once a day for 30 days 08/15/2024 Active True Metrix Blood Glucose Test - as directed In Vitro daily and PRN for 30 days Active Bacitracin 500 UNIT/GM 1 application Externally Once a day PRN 10/06/2022 Active Lansing Saline Nasal Gel - 1 application to each nare Nasally twice a day as needed 09/14/2023 Active Pen [place] 02/08 31G X 8 MM as directed once a week Acti ve Atorvastatin Calcium 20 MG 1 tablet Orally Once a day for 30 days Active metFORMIN HCl 1000 MG TAKE 1 TABLET BY M OUTH EVERY DAY WITH MEALS for 30 days Active Pantoprazole Sodium 40 mg TAKE 1 TABLET BY MOUTH TWICE DAILY for 30 Active Gabapentin 600 MG 2 tablet Orally thre e times a day (tid) for 30 days Active Alcohol Prep Pad 70 % as directed, three times per day and PRN for 30 days Active Immunizations Vaccine Route Administration Date Status Comme nts zzz do not use FLUARIX 3 YRS AND OLDER Adult Unknown 09/09/2016 Refused Influenza-Adult IM Intramuscular 06/06/2019 Administered Influenza 3+ PRIVATE Unknown 07/15/2020 Administered [facility] Social History Tobacco Use: Social History Observation Description Date Details (start date - stop date) Current Smoker NA - NA Sexual Hx: Question Answer Notes Had sex in the last 12 months (vaginal, oral, or anal)? No Have you ever had an STD? No Depression Screening (PHQ-9): Question Answer Notes Little interest or pleasure in doing things Near ly every day Feeling down, depressed, or hopeless Nearly ever y day Trouble falling or staying a sleep, or sleeping too much Nearly every day Feeling tired or having little energy Nearly magdalene ry day Poor appetite or overeating More than half the d ays Feeling bad about yourself-o r that you are a failure or have let yourself or your family down Several days Trouble concentrating on thi ngs, such as reading the newspaper or watching television Several days Moving or speaking so slowly that other people could have noticed. Or the opposite being so fidgety or restless that you have been moving around a lot more than usual Several days Thoughts that you would be b bennett off , or of hurting yourself in some way Not at all Total Score 17 Intepretation Moderately severe depression AUDIT-C (Standard) Question Answer Notes Did you have a drink contain ing alcohol in the past year? Yes How often did you have a dri nk containing alcohol in the past year? Monthly or less (1 point) How many drinks did you have on a typical day when you were drinking in the past year? 1 or 2 drinks (0 point) How often did you have six o r more drinks on one occasion in the past year? Never (0 point) Points 1 Interpretation Negative Tobacco Control (Standard) Question Answer Notes Tobacco use: Current smoker How often do you smoke cigarettes? Every day How many cigarettes a day do you smoke? 6-10 Section Notes: 01/30/15: smokes 1/2 ppd, valentin es etoh and illegal drugs. 01/30/15: smokes 1/2 ppd, valentin es etoh and illegal drugs. 01/30/15: smokes 1/2 ppd, valentin es etoh and illegal drugs. 01/30/15: smokes 1/2 ppd, valentin es etoh and illegal drugs. 01/30/15: smokes 1/2 ppd, valentin es etoh and illegal drugs. 01/30/15: smokes 1/2 ppd, valentin es etoh and illegal drugs. Problems Problem Type SNOMED Code ICD Code Onset Dates Problem Status W/U Status Risk Notes Problem Tobacco user (123071259) Nicotine dependence, unspecified, uncomplicated (F17.200) Active confirmed Problem Obesity (903823020) Obesity (E66.9) Active conf irmed Problem 27235344 Anxiety (F41.9) Active confirmed Problem Allergic rhinitis (17221522) Allergic rhinitis (J30.9) Active confirmed Problem 85710250 Essential hypertension (I10) Active confirmed Problem Gastroesophageal reflux disease (216714998) GERD (gastroesophagea l reflux disease) (K21.9) Active confirmed Problem Depression (57797679) Depression (F32.9) Active confirmed Problem 462546523 Neuropathy (G62.9) Active confirmed Problem Diabetes mellitus type 2 (84145571) Diabetes mellitus type 2, uncontrolled (E11.65) Active confirmed Problem 39659615 Mood disorder (F39) Active confirmed Problem Reactive airway disease (772168182152) Reactive airway disease (J45.909) Active confirmed Problem Mild persistent asthma (581088024) Mild persistent asthma (J45.30) Active confirmed Problem 717658279982018 Right carpal tunnel syndrome (G56.01) Active confirmed Vital Signs Heart Rate 101 /min 11/12/2024 Temperature 98.6 degrees Fahrenheit 11/12/2024 Respiratory Rate 20 /min 11/12/2024 Oximetry 95 % 11/12/2024 Blood pressure diastolic 79 mm Hg 11/12/2024 Height 63 in 11/12/2024 Blood pressure systolic 120 mm Hg 11/12/2024 Weight 261 lbs 11/12/2024 BMI 46.23 kg/m2 11/12/2024 Encounters Encounter Location Date Provider Diagnosis [facility] [address] [place] [address] 05/02/2024 Jessica Marcos Diabetes mellitus ty pe 2, uncontrolled E11.65 ; Anxiety F41.9 ; Acute effusion of right ear H65.191 ; Acute cough R05.1 and Nicotine dependence, unspecified, uncomplicated F17.200 [facility] [address] [place] [address] 06/07/2024 Jessica Hemant Exposure to COVID-19 virus Z20.822 ; Chest congestion R09.89 ; Mild persistent asthma J45.30 ; Neuropathy G62.9 and Nicotine dependence, unspecified, uncomplicated F17.200 [facility] [address] [place] [address] 08/02/2024 Jessica Marcos Diabetes mellitus ty pe 2, uncontrolled E11.65 ; Mild persistent asthma J45.30 ; GERD (gastroesophageal reflux disease) K21.9 ; Anxiety F41.9 ; Essential hypertension I10 ; Right carpal tunnel syndrome G56.01 and Nicotine dependence, unspecified, uncomplicated F17.200 [facility] [address] [place] [address] 08/15/2024 Jessica Marcos Mood disorder F39 [facility] [address] [place] [address] 10/03/2024 Jessica Marcos Neuropathy G62.9 ; Allergic rhinitis J30.9 ; Essential hypertension I10 ; Depression F32.9 ; Mood disorder F39 ; Abdominal cramping R10.9 ; Pyelonephritis N12 and GERD (gastroesophageal reflux disease) K21.9 [facility] [address] [place] [address] 11/12/2024 Jessica Marcos Diabetes mellitus ty pe 2, uncontrolled E11.65 ; Anxiety F41.9 ; Thrush B37.0 ; Yeast infection B37.9 ; Acute pain of right knee M25.561 ; Mood disorder F39 and Acute cough R05.1 [facility] [address] [place] [address] 04/04/2024 [place] [address] [place] [address] 04/06/2024 [place] [address] [place] [address] 04/27/2024 [place] [address] [place] [address] 05/03/2024 [place] [address] [place] [address] 05/07/2024 [place] [place] [address] 05/10/2024 Jessica Marcos Diabetes mellitus ty pe 2, uncontrolled E11.65 and Neuropathy G62.9 [place] [address] [place] [address] 06/04/2024 Jessica Marcos Allergic rhinitis J30.9 [facility] [address] [place] [address] 06/06/2024 Jessica Marcos Neuropathy G62.9 and Mild persistent asthma J45.30 [facility] [address] [place] [address] 07/03/2024 [place] [address] [place] [address] 07/04/2024 [facility] [address] [place] [address] 07/09/2024 Jessica Marcos Neuropathy G62.9 [place] [address] [place] [address] 07/16/2024 Jessica Marcos Diabetes mellitus ty pe 2, uncontrolled E11.65 [place] [address] [place] [address] 07/21/2024 Jessica [place] [address] [place] [address] 08/06/2024 Jessica [facility] [address] [place] [address] 08/09/2024 Jessica Marcos Neuropathy G62.9 [place] [address] [address] 09/05/2024 Jessica Marcos Neuropathy G62.9 [facility] [address] [place] [address] 10/03/2024 Jessica [place] [address] [place] [address] 10/16/2024 Jessica Marcos Diabetes mellitus ty pe 2, uncontrolled E11.65 [place] [address] [place] [address] 10/22/2024 Jessica [place] [address] [place] [address] 10/25/2024 Jessica [place] [address] [place] [address] 11/02/2024 Jessica Marcos Neuropathy G62.9 [facility] [address] [place] [address] 11/22/2024 Jessica [place] [address] [place] [address] 11/26/2024 Jessica Marcos Diabetes mellitus ty pe 2, uncontrolled E11.65 [facility] [address] [place] [address] 11/26/2024 Jessica Marcos Diabetes mellitus ty pe 2, uncontrolled E11.[address] [place] [address] 11/29/2024 Jessica Hemant Neuropathy G62.9 [place] [place] [address] 12/26/2024 Jessica Marcos Neuropathy G62.[address] [address] 01/08/2025 Margareth Del Cid GERD (gastroesophage al reflux disease) K21.9 and Yeast infection B37.9 Assessments Encounter Date Diagnosis (ICD Code) Assessment Notes Treatment Notes Treatment Clinical Notes Section Notes 08/15/2024 Mood disorder (ICD-10 - F39) Will start patient on Abilify 5mg daily today. Discussed risks and side effects of medication including possible nausea, headache, upset stomach, diarrhea, constipation, anxiety, irritability, and sexual dysfunction. Most mild side effects improve over 4-6 weeks of use. Please monitor for worsening of symptoms, especially suicidal ideations or morbid thoughts, and call office and or go to the emergency department immediately if this occurs. Patient verbalized understanding, in agreement with plan. 09/05/2024 Neuropathy (ICD-10 - G62.9) 10/03/2024 Neuropathy (ICD-10 - G62.9) OARRS report reviewed. Patient history consistent with prescribing. Refills provided today, 30 day supply. 10/16/2024 Diabetes mellitus type 2, uncontrolled (ICD-10 - E11.65) 11/02/2024 Neuropathy (ICD-10 - G62.9) 11/12/2024 Diabetes mellitus type 2, uncontrolled (ICD-10 - E11.65) Pt would benefit from weight loss and improved A1c, lower blood sugars. Stop Truliciyt, Pt will start on Ozempic. Pt educated on how to take medication and that does need to eat less at at time and follow instructions on how to take medication weekly sq, dose will start at .25 mg x 4 weeks, then .5 mg x 4 weeks. Recommended to eat smaller meals and avoid rich, fried foods. Education on possible s/e of med and pt VU. 11/26/2024 Diabetes mellitus type 2, uncontrolled (ICD-10 - E11.65) 11/26/2024 Diabetes mellitus type 2, uncontrolled (ICD-10 - E11.65) 11/29/2024 Neuropathy (ICD-10 - G62.9) 12/26/2024 Neuropathy (ICD-10 - G62.9) 01/08/2025 GERD (gastroesophageal reflux disease) (ICD-10 - K21.9) 08/09/2024 Neuropathy (ICD-10 - G62.9) 05/02/2024 Diabetes mellitus type 2, uncontrolled (ICD-10 - E11.65) Will increase dose of Trulicity to 1.5mg weekly. Educated patient on proper use, dosing schedule and risks and side effects of medication. Common side effects include constipation, patient education on increasing water and fiber intake. Discussed that medications are only an adjunct to proper diet and exercise. Patient verbalized understanding, in agreement with plan. Follow up in 2 months & PRN. 05/02/2024 Anxiety (ICD-10 - F41.9) Anxiety stable. Will continue current medication. F/U 3 months & PRN 05/10/2024 Diabetes mellitus type 2, uncontrolled (ICD-10 - E11.65) 06/04/2024 Allergic rhinitis (ICD-10 - J30.9) 06/06/2024 Neuropathy (ICD-10 - G62.9) 06/07/2024 Exposure to COVID-19 virus (ICD-10 - Z20.822) Pt was exposed to COVID positive individual. They were within 6 feet, longer than 15 minutes without a mask on during this encounter. I discussed reassuring vs non reassuring signs related to COVID, when to seek emergency care if warranted and CDC quarantine guidelines, hand hygiene and household disinfecting protocols to prevent the spread of COVID. Pt verbalized understanding. F/u PRN 06/07/2024 Chest congestion (ICD-10 - R09.89) Recommended humidifier/hot shower, Vicks rub, spoon full of honey, OTC cough medications PRN. Follow up if no improvement, monitor for wheezing, increased work of breathing, worsening shortness of breath. Verbalized understanding. 07/09/2024 Neuropathy (ICD-10 - G62.9) 07/16/2024 Diabetes mellitus type 2, uncontrolled (ICD-10 - E11.65) 08/02/2024 Diabetes mellitus type 2, uncontrolled (ICD-10 - E11.65) Will increase dose of Trulicity to 3mg weekly. Educated patient on proper use, dosing schedule and risks and side effects of medication. Common side effects include constipation, patient education on increasing water and fiber intake. Discussed that medications are only an adjunct to proper diet and exercise. Patient verbalized understanding, in agreement with plan. Follow up in 2 months & PRN. 08/02/2024 Mild persistent asthma (ICD-10 - J45.30) Asthma stable. Will continue current medication. F/U 3 months & PRN 08/02/2024 GERD (gastroesophageal reflux disease) (ICD-10 - K21.9) GERD stable. Will continue current medications. F/u 3 months & PRN 06/07/2024 Mild persistent asthma (ICD-10 - J45.30) Will continue current medication. F/U 3 months & PRN 06/06/2024 Mild persistent asthma (ICD-10 - J45.30) 05/10/2024 Neuropathy (ICD-10 - G62.9) 05/02/2024 Acute effusion of right ear (ICD-10 - H65.191) Will treat with Cortisporin drops, follow up if no improvement. 01/08/2025 Yeast infection (ICD-10 - B37.9) 11/12/2024 Anxiety (ICD-10 - F41.9) Again recommended patient start Abilify 5mg daily. Discussed risks and side effects of medication including possible nausea, headache, upset stomach, diarrhea, constipation, anxiety, irritability, and sexual dysfunction. Most mild side effects improve over 4-6 weeks of use. Please monitor for worsening of symptoms, especially suicidal ideations or morbid thoughts, and call office and or go to the emergency department immediately if this occurs. Patient verbalized understanding, in agreement with plan. 11/12/2024 Thrush (ICD-10 - B37.0) Exam consistent with oral thrush, will start Nystatin swish & swallow for 14 days. Discussed risks and side effects of medication. Follow up if no improvement. 10/03/2024 Allergic rhinitis (ICD-10 - J30.9) Take medication as directed. Use saline nasal spray may help with symptom relief. OTC medications such as Zyrtec, Juliet or Claritin can help with symptoms during the peak of allergy season. Follow up with our office if symptoms persist as a therapy plan may need to be made. 10/03/2024 Essential hypertension (ICD-10 - I10) Patient has acceptable blood pressure control at this visit. Patient is instructed to continue blood pressure medication regimen as directed. Patient denied chest pain, palpitations, PENA, vision changes, syncope or dizziness at today's appointment. Educated patient to continue low salt/caffeine intake and encouraged exercise. Pt verbalized understanding. 11/12/2024 Yeast infection (ICD-10 - B37.9) Will treat patient based on clinical presentation. Instructed patient to take Diflucan as directed and to follow up if symptoms do not resolve after both doses. Patient is informed that if symptoms continue despite treatment, she may anticipate a pelvic exam at that time. 05/02/2024 Acute cough (ICD-10 - R05.1) Recommended humidifier/hot shower, Vicks rub, spoon full of honey, OTC cough medications PRN. Follow up if no improvement, monitor for wheezing, increased work of breathing, worsening shortness of breath. Verbalized understanding. 06/07/2024 Neuropathy (ICD-10 - G62.9) OARRS report reviewed. Patient history consistent with prescribing. Refills provided today, 30 day supply. 08/02/2024 Anxiety (ICD-10 - F41.9) Anxiety stable. Will continue current medication. F/U 3 months & PRN 06/07/2024 Nicotine dependence, unspecified, uncomplicated (ICD-10 - F17.200) Quitting Tobacco: Care Instructions material was printed 05/02/2024 Nicotine dependence, unspecified, uncomplicated (ICD-10 - F17.200) Quitting Tobacco: Care Instructions material was published 08/02/2024 Essential hypertension (ICD-10 - I10) Patient has acceptable blood pressure control at this visit. Patient is instructed to continue blood pressure medication regimen as directed. Patient denied chest pain, palpitations, PENA, vision changes, syncope or dizziness at today's appointment. Educated patient to continue low salt/caffeine intake and encouraged exercise. Pt verbalized understanding. 11/12/2024 Acute pain of right knee (ICD-10 - M25.561) Offered to return for toradol injection if needed. 10/03/2024 Depression (ICD-10 - F32.9) Again recommended patient start Abilify 5mg daily. Discussed risks and side effects of medication including possible nausea, headache, upset stomach, diarrhea, constipation, anxiety, irritability, and sexual dysfunction. Most mild side effects improve over 4-6 weeks of use. Please monitor for worsening of symptoms, especially suicidal ideations or morbid thoughts, and call office and or go to the emergency department immediately if this occurs. Patient verbalized understanding, in agreement with plan. 10/03/2024 Mood disorder (ICD-10 - F39) Again recommended patient start Abilify 5mg daily. Discussed risks and side effects of medication including possible nausea, headache, upset stomach, diarrhea, constipation, anxiety, irritability, and sexual dysfunction. Most mild side effects improve over 4-6 weeks of use. Please monitor for worsening of symptoms, especially suicidal ideations or morbid thoughts, and call office and or go to the emergency department immediately if this occurs. Patient verbalized understanding, in agreement with plan. 10/03/2024 Abdominal cramping (ICD-10 - R10.9) Symptoms and UA consistent with pyelonephritis. Severe CVA tenderness on exam. Will start atb, encouraged patient to complete entire course. Discussed risks and side effects of medications. Push fluids. Patient verbalized understanding. Follow up if symptoms worsen or fail to improve. 08/02/2024 Right carpal tunnel syndrome (ICD-10 - G56.01) Reviewed side effect profile of medications. Warned to take with food and monitor for bleeding. Do not take with other NSAIDs. Discussed risks with patients cardiac history. 08/02/2024 Nicotine dependence, unspecified, uncomplicated (ICD-10 - F17.200) Quitting Tobacco: Care Instructions material was published 10/03/2024 Pyelonephritis (ICD-10 - N12) Symptoms and UA consistent with pyelonephritis. Severe CVA tenderness on exam. Will start atb, encouraged patient to complete entire course. Discussed risks and side effects of medications. Push fluids. Patient verbalized understanding. Follow up if symptoms worsen or fail to improve. 11/12/2024 Mood disorder (ICD-10 - F39) Again recommended patient start Abilify 5mg daily. Discussed risks and side effects of medication including possible nausea, headache, upset stomach, diarrhea, constipation, anxiety, irritability, and sexual dysfunction. Most mild side effects improve over 4-6 weeks of use. Please monitor for worsening of symptoms, especially suicidal ideations or morbid thoughts, and call office and or go to the emergency department immediately if this occurs. Patient verbalized understanding, in agreement with plan. 11/12/2024 Acute cough (ICD-10 - R05.1) Recommended humidifier/hot shower, Vicks rub, spoon full of honey, OTC cough medications PRN. Follow up if no improvement, monitor for wheezing, increased work of breathing, worsening shortness of breath. Verbalized understanding. 10/03/2024 GERD (gastroesophageal reflux disease) (ICD-10 - K21.9) GERD stable. Will continue current medications. F/u 3 months & PRN 05/02/2024 Other Body Mass Index : Care Instructions material was published 06/07/2024 Other Body Mass Index : Care Instructions material was printed 08/02/2024 Other Body Mass Index : Care Instructions material was published Plan Of Treatment No Information Insurance Providers Payer Name Payer Address Payer Phone Subscriber Number Group Number Insured Name Patient Relationship to Insured Coverage Start Date Coverage End Date [employer] [place] [address] [place] [address] [id number] BORA GARCÍA Self - patient is the insured 2 Wrap A[employer] [address] [place] [address] [id number] BORA GARCÍA Self - patient is the insured 3 [employer] [address] [place] [address] [id number] BORA GARCÍA Self - patient is the insured 9 3 zMEDICAID ABD after [employer] [address] [place] [address] [id number] BORA GARCÍA Self - patient is the insured 9 3 zDENTAL DQ [employer] [address] [place] [address] [id number] BORA GARCÍA Self - patient is the insured 0 BH [employer] [place] Medicaid [address] [place] [address] [id number] BORA GARCÍA Self - patient is the insured 3 Medical (General) History Medical History History ICD Code LEVEL 4 acid reflux depression hypertension allergic rhinitis type II diabetes asthma neuropathy carpal tunnel Surgical History Surgery Date(Month/Year) c sec x 3, GB, right breast bx, left wri st carpal tunnel, colonoscopy 2006 cholecystectomy tubal ligation heart catheterization 02/2017 tonsillectomy and adenoidectomy Heart Catheterization 07/2024 Hospitalization History Reason Date(Month/Year) see surgical SOB 02/2017 cholecystectomy child
[2025-03-09 09:09] LABS: Calcium 9.6 mg/dL (8.5-10.1); Chloride 102 mmol/L (98-107); Estimated GFR (African America >60 (>=60 mL/min/1.73m^2); Estimated GFR (Non-African Ame >60 (>=60 mL/min/1.73m^2); Potassium 4.2 mmol/L (3.5-5.1); Sodium 141 mmol/L (136-145)
[2025-03-09 09:33] LABS: Anion Gap 17.3; Carbon Dioxide 25.9 mmol/L (21.0-32.0); Chol HDL Ratio 4.8; Cholesterol 195 mg/dL (<=200); Glucose 160 mg/dL (74-106); HDL Cholesterol 41 mg/dL (40-60); Triglycerides 269 mg/dL (<=150); VLDL CHOLESTEROL 53.8 mg/dL
== END 2025-03-09 06:32 | disposition home or self-care (01) ==
LOC: LAB 06:34
PROVIDERS: PCP Nurse Practitioner Family; Visit Provider Internal Medicine Interventional Cardiology
DX: I50.22 Chronic systolic (congestive) heart failure (principal); E78.2 Mixed hyperlipidemia
CPT/HCPCS: 36415; 80048; 80061

== ENCOUNTER 2025-04-15 12:47 | Outpatient (OUT) | payer OTHER, SELFPAY ==
--- OUTSIDE RECORDS SUMMARY | 2024-11-07 10:00 | XMS_ITS ---
Author Organization [facility] Address [address] [place] [address] Care Team Providers Care Collection Systems Administrator Name Role Phone Margareth Del Cid Primary Care Provider [phone] Melissa Carnes Unavailable [phone] Jessica Castaneda Unavailable [phone] REASON FOR VISIT 3 month f/u DM, A1C Encounters Encounter Location Date Provider Diagnosis [facility] [address] [place] [address] 11/07/2024 Jessica Castaneda Plan Of Treatment No Information Progress Notes * GEORGIE GARCÍASUJEYB: 7 (59 yo F)Acc No.[id number]:11/07/2024 Progress Notes Patient: GEORGIE DAUGHERTYA Provider: Tien Marcos :1965 A ge:59 Y S ex:Female Date:11/07/2024 Address:[address] [place] [address], [address] , [id number] Pcp:Margareth Del Cid Subjective: * Chief Complaints: * 1 . 3 month f/u DM, A1C. * Medical History: Objective: * Vitals: Assessment: Plan: * Treatment: * Images: * Electronic signature of Hua Castaneda CNP on 04/15/2025 at 12:49 PM EDT Sign off status: Pending * Provider: Tien Marcos Date: 0 11/07/2024 Generated for Printi ng/Faxing/Rashaditting on: 0 04/15/2025 12:49 PM EDT
--- OUTSIDE RECORDS SUMMARY | 2025-02-11 09:45 | XMS_ITS ---
Author Organization [facility] Address [address] [place] [address] Care Team Providers Care Channel Installer Name Role Phone Margareth Del Cid Primary Care Provider Melissa Carnes Unavailable [phone] Jessica Castaneda Unavailable [phone] REASON FOR VISIT 3 month f/u DM, A1C Encounters Encounter Location Date Provider Diagnosis [facility] [address] [place] [address] 02/11/2025 Jessica Castaneda Plan Of Treatment No Information Progress Notes * GEORGIE GARCÍASUJEYB: 7 (59 yo F)Acc No.[id number]:02/11/2025 Progress Notes Patient: BORA DAUGHERTY Provider: Tien Marcos :1965 A ge:59 Y S ex:Female Date:02/11/2025 Address:[address] [place] [address], [address] , [id number] Pcp:Margareth Del Cid Subjective: * Chief Complaints: * 1 . 3 month f/u DM, A1C. * Medical History: Objective: * Vitals: Assessment: Plan: * Treatment: * Images: * Electronic signature of Hua Castaneda CNP on 04/15/2025 at 12:49 PM EDT Sign off status: Pending * Provider: Tien Marcos Date: 0 02/11/2025 Generated for Printi ng/Faxing/Rashaditting on: 0 04/15/2025 12:49 PM EDT
--- OUTSIDE RECORDS SUMMARY | 2025-04-11 09:30 | XMS_ITS ---
Author Organization [facility] Address [address] [place], [place] [address] Care Team Providers Care Faceter Name Role Phone Linda Wood Primary Care Provider REASON FOR VISIT f/u DM & HLD Social History Sex Assigned At : Social History Observation Description Sex Assigned At Female Encounters Encounter Location Date Provider Diagnosis Main [address] [place], [place] [id number] 04/11/2025 Linda Wood Plan Of Treatment Next Appt Details Provider Name:Linda ramirez, 06/24/2025 02:00:00 PM, [address] [place], [place], [id number], Progress Notes * Lalita CASTANEDAB: 7 (59 yo F)Acc No.[id number]:04/11/2025 Vivitrol Note Patient: Ivan BLAKE Lisbeth Provider: PRINCE Shell :1965 A ge:59 Y S ex:Female Date:04/11/2025 Address:[address] [place] [address] [address] , [facility] Subjective: * Chief Complaints: * 1 . f/u DM & HLD. * Medical History: Objective: * Vitals: Assessment: Plan: * Treatment: * Billing Information: * Visit Code: * Procedure Codes: * Electronic signature of PRINCE Bhatt on 04/15/2025 at 12:50 PM EDT Sign off status: Pending * Provider: PRINCE Shell Date: 0 04/11/2025 Generated for Moe garcia/Ev/Michael on: 0 04/15/2025 12:50 PM EDT
--- OUTSIDE RECORDS SUMMARY | 2025-04-15 12:49 | XMS_ITS | Clinical Summary ---
Author Organization [facility] Address [address] [place] [address] Care Team Providers Care Media Services Specialist Name Role Phone Unavailable Primary Care Provider [...] or chew. 90 tablet 3 03/27/20 24 Active aspirin 81 mg chewable tabletIndications: Essential hypertension Chew 1 tablet (81 mg) once daily as directed. 90 tablet 3 07/06/20 Active ARIPiprazole (Abilify) 5 mg tablet Take 5 mg by mouth in the morning. 08/15/20 Active metoprolol succinate XL (Toprol-XL) 50 mg 24 hr tabletIndications: Palpitations Take 1 tablet (50 mg) by mouth in the morning. Do not crush or chew. 90 tablet 3 01/03/20 Active Additional Information Patient taking differently:50 mg oral Daily,Total of 75mg daily, Reported on 01/21/2025 atorvastatin (Lipitor) 80 mg tabletIndications: Coronary artery disease involving [place] coronary artery of [place] heart without angina pectoris,Mixed hyperlipidemia Take 1 tablet (80 mg) by mouth at bedtime. 90 tablet 3 01/22/20 25 Active lisinopril 5 mg tabletIndications: Chronic systolic congestive heart failure (CMS/HCC) Take 1 tablet (5 mg) by mouth in the morning. 90 tablet 3 01/22/20 Active spironolactone (Aldactone) 25 mg tabletIndications: Chronic systolic congestive heart failure (CMS/HCC) Take 0.5 tablets (12.5 mg) by mouth in the morning. 45 tablet 3 01/22/20 25 Active metoprolol succinate XL (Toprol-XL) 25 mg 24 hr tabletIndications: Palpitations Take 1 tablet (25 mg) by mouth in the morning. Total of 75mg daily 90 tablet 3 03/11/20 Active Active Problems Problem Noted Date Diagnosed [...] Encounters Date Type Department Care Team Description 03/11/2025 Refill [facility] [address] [place] [facility] [place] [address] Diana Vyas MA Palpitations 03/11/2025 Orders Only [facility] [address] [place] [facility] [place] [address] Carlos Richard MD 01/21/2025 1:45 PM EDT Office Visit [facility] [address] [place] [facility] [place] [address] Carlos Richard MD Chronic systolic congestive heart failure (CMS/HCC) (Primary Dx); Coronary artery disease involving [place] coronary artery of [place] heart without angina pectoris; Primary hypertension; Mixed hyperlipidemia from Last 3 Months Family History Medical [...] Care Team (Late st Contact Info) Description 05/13/2025 2:00 PM EDT Office Visit [facility] [address] [place] [address] Carlos Richard MD [address] [facility] [address] [facility] [place] [address] Health Maintenance Due Date Last Done Comments [...] - season) 2024 04/19/2021, 03/28/2021 Influenza Vaccine (#1) 2025 2, 06/25/2021, 07/15/2020, Additional history exists Adult Tetanus [...] on patient's age to complete this topic Procedures Procedure Name Priority Date/Time Associated Diagnosis Comments BASIC METABOLIC PANEL Routine 03/09/2025 8:39 AM EDT LIPID PANEL Routine 03/09/2025 8:39 AM EDT from Last 3 Months Results * Lipid panel (03/09/2025 8:39 AM EDT) Blood Venous blood specimen / Unknown us Carlos Richard MD LAB BLOOD ORDERABLES Final R esult * Basic metabolic panel (03/09/2025 8:39 AM EDT) Blood Venous blood specimen / Unknown us Carlos Richard MD LAB BLOOD ORDERABLES Final R esult from Last 3 Months Insurance [employer] [place] [employer]
--- OUTSIDE RECORDS SUMMARY | 2025-04-15 12:49 | XMS_ITS | Patient Health Record ---
Author Organization [facility] Address [address] [place], [place] [address] Care Team Providers Care Library Media Assistant Name Role Phone Cynthia Morgan Primary Care Provider Jonnie Biswas Unavailable [phone] Allergies Allergen (clinical drug ingredient) Drug/Non Drug [...] MG 1 tablet Orall y Once a day; Duration: 30 day(s) Active Gabapentin 600 MG 2 tablets Orally Thr ee times a day Active Coreg CR 80 MG 1 capsule with food Orally Once a day Active Singulair 10 MG 1 tablet Orally Once a day; Duration: 30 day(s) Active Spiriva Respimat 1.25 MCG/ACT 2 puffs Inhalation Once a day Active Bumetanide 2 MG 1 tablet Orally Twic e a day Active Aspirin 81 81 MG 1 tablet Orally Once a day Active metFORMIN HCl 1000 MG 1 tablet with a me al Orally Once a day; Duration: 30 day(s) Active Jardiance 25 MG 1 tablet Orally Once a day; Duration: 30 day(s) Active Potassium Chloride ER 20 [...] W/U Status Risk Notes Problem Essential hypertension (96991013) Essential (primary) hypertension (I10) Active confirmed Problem Chronic systolic heart failure (043184831) Chronic systolic (congestive) heart failure (I50.22) Active confirmed Problem Type II diabetes mellitus without complication (627172019) Type 2 diabetes mellitus without complications (E11.9) Active confirmed Problem Mixed hyperlipidemia (605262588) Mixed hyperlipidemia (E78.2) Active confirmed Problem Dilated cardiomyopathy (743058053) Dilated cardiomyopathy (I42.0) Active confirmed Problem Exacerbation of asthma (434812765) Unspecified asthma with (acute) exacerbation (J45.901) Active confirmed Problem Primary generalised osteoarthritis (191024350) Primary generalized (osteo)arthritis (M15.0) Active confirmed Problem Syncope and collapse (949993347) Syncope and collapse (R55) Active confirmed Plan Of Treatment No Information Insurance Providers Payer Name Payer Address Payer Phone Subscriber Number Group Number Insured Name Patient Relationship to Insured Coverage Start Date Coverage End Date [employer] [address] [place] [id number] Lisbeth Castaneda Self - patient is the [...]
--- OUTSIDE RECORDS SUMMARY | 2025-04-15 12:49 | XMS_ITS | Clinical Summary ---
Author Organization [facility] Address [address] [place] [address] Care Team Providers Care Converting Technician Name Role Phone Linda Wood CNP Primary [...] (1 - 2023- season) 2024 Influenza Vaccine (#1) 2025 Care Teams Converting Technician Relationship Specialty Start Date End Date Linda Wood, METER TESTER PCP - General Family Medicine 06/13/13
--- OUTSIDE RECORDS SUMMARY | 2025-04-15 12:50 | XMS_ITS | Patient Health Record ---
Author Organization [employer] [facility] Address [address] [place] [address] Care Team Providers Care Boat Carpenter Mechanic Name Role Phone Maria EugeniaMargareth singh Primary Care Provider Melissa Carnes Unavailable [phone] Jessica Castaneda Unavailable [phone] Allergies Allergen (clinical drug ingredient) Drug/Non Drug Allergy documented on EMR Reaction Allergy Type Onset Date Status Zantac hives Drug Allergy Active Results Component Value [...] 1.25 MCG/ACT 2 puffs Inhalation Once a day; Duration: 30 days Active Albuterol Sulfate HFA 108 (90 Base) MCG/ACT 2 puffs as needed Inhalation every 6 hrs; Duration: 30 days Active Trulicity 3 MG/0.5ML 3 mg Subcutaneous o nce a week Active Metoprolol Succinate 50 MG 1 capsule Orally Once a day Active Montelukast Sodium 10 MG 1 tablet Orally Once a day; Duration: 30 days 01/30/2024 Active Klor-Con M20 20 MEQ 1 tablet with food Orally Once a day *CARDIOLOGY Active Jardiance 25 MG 1 tablet in the morn ing Orally Once a day; Duration: 30 days Active Abilify 5 MG 1 tablet Orally Once a day; Duration: 30 days 08/15/2024 Active True Metrix Blood Glucose Test - as directed In Vitro daily and PRN; Duration: 30 days Active Bacitracin 500 UNIT/GM 1 application Externally Once a day PRN 10/06/2022 Active Aristes Saline Nasal Gel - 1 application to each nare Nasally twice a day as needed 09/14/2023 Active Pen Webb 02/08 31G X 8 MM as directed once a week Acti ve Atorvastatin Calcium 20 MG 1 tablet Orally Once a day; Duration: 30 days Active metFORMIN HCl 1000 MG TAKE 1 TABLET BY M OUTH EVERY DAY WITH MEALS; Duration: 30 days Active Pantoprazole Sodium 40 mg TAKE 1 TABLET BY MOUTH TWICE DAILY; Duration: 30 Active Gabapentin 600 MG 2 tablet Orally thre e times a day (tid); Duration: 30 days Active Alcohol Prep Pad 70 % as directed, three times per day and PRN; Duration: 30 days Active Immunizations Vaccine Route Administration Date Status Comme tania adams do not use FLUARIX 3 YRS AND OLDER Adult Unknown 09/09/2016 Refused Influenza-Adult IM Intramuscular 06/06/2019 Administered Influenza 3+ PRIVATE Unknown 07/15/2020 Administered [facility] fren[facility] Social History Tobacco Use: Social [...] W/U Status Risk Notes Problem Tobacco user (839779379) Nicotine dependence, unspecified, uncomplicated (F17.200) Active confirmed Problem Obesity (150914315) Obesity (E66.9) Active conf irmed Problem Anxiety (00780090) Anxiety (F41.9) Active confi rmed Problem Allergic rhinitis (28123029) Allergic rhinitis (J30.9) Active confirmed Problem Essential hypertension (57585197) Essential hypertension (I10) Active confirmed Problem Gastroesophageal reflux disease (382018464) GERD (gastroesophagea l reflux disease) (K21.9) Active confirmed Problem Depression (761058759) Depression (F32.9) Active confirmed Problem Neuropathy (283949378) Neuropathy (G62.9) Active confirmed Problem Diabetes mellitus type 2 (60243072) Diabetes mellitus type 2, uncontrolled (E11.65) Active confirmed Problem Mood disorder (81400840) Mood disorder (F39) Active confirmed Problem Reactive airway disease (152030901770) Reactive airway disease (J45.909) Active confirmed Problem Mild persistent asthma (727085236) Mild persistent asthma (J45.30) Active confirmed Problem Carpal tunnel syndrome (46439423) Right carpal tunnel syndrome (G56.01) Active confirmed Vital Signs Heart Rate 101 /min 11/12/2024 Temperature 98.6 degrees Fahrenheit 11/12/2024 Respiratory Rate 20 /min 11/12/2024 Oximetry 95 % 11/12/2024 Blood pressure diastolic 79 mm Hg 11/12/2024 Height 63 in 11/12/2024 Blood pressure systolic 120 mm Hg 11/12/2024 Weight 261 lbs 11/12/2024 BMI 46.23 kg/m2 11/12/2024 Encounters Encounter Location Date Provider Diagnosis [facility] [address] [place] [address] 04/27/2024 Jessica Castaneda [facility] [address] [place] [address] 05/03/2024 Jessica Castaneda [facility] [address] [place] [address] 05/07/2024 Jessica Castaneda [facility] [address] [place] [address] 05/10/2024 Jessica Castaneda Diabetes mellitus ty pe 2, uncontrolled E11.65 and Neuropathy G62.9 [facility] [address] [place] [address] 06/04/2024 Jessica Castaneda Allergic rhinitis J30.9 [facility] [address] [place] [address] 06/06/2024 Jessica Castaneda Neuropathy G62.9 and Mild persistent asthma J45.30 [facility] [place] [address] [place] [address] 07/03/2024 [facility] [address] [place] [address] 07/04/2024 Jessica zRandall [facility] [address] [place] [address] 07/09/2024 Jessica zzzMurray Neuropathy G62.9 [facility] [address] [place] [address] 07/16/2024 Jessica zzzMurray Diabetes mellitus ty pe 2, uncontrolled E11.65 [facility] [address] [place] [address] 07/21/2024 Jessica Tonya [facility] [place] [address] 08/06/2024 [facility] [address] [place] [address] 08/09/2024 Jessica zzzMurray Neuropathy G62.9 [facility] Critical access [place] [address] 09/05/2024 Jessica zzzMurray Neuropathy G62.9 [facility] [address] [place] [address] 10/03/2024 Jessica zRandall [facility] Critical access [place] [address] 10/16/2024 Jessica zzzMurray Diabetes mellitus ty pe 2, uncontrolled E11.65 [facility] Critical access [place] [address] 10/22/2024 Jessica zRandall [facility] [address] [place] [address] 10/25/2024 Jessica zRandall [facility] Critical [place] [address] 11/02/2024 Jessica zzzMurray Neuropathy G62.9 [facility] [address] [place] [address] 11/22/2024 Jessica zRandall [facility] Critical [place] [address] 11/26/2024 Jessica zzzRonaldrray Diabetes mellitus ty pe 2, uncontrolled E11.65 [facility] [address] [facility] [place] [address] 11/26/2024 Jessica zAntoniorray Diabetes mellitus ty pe 2, uncontrolled E11.[address] [address] 11/29/2024 Jessica zzzMurray Neuropathy G62.9 [facility] [address] [place] [address] 12/26/2024 Jessica zzzMurray Neuropathy G62.[address] [address] 01/08/2025 Margareth Del Cid GERD (gastroesophage al reflux disease) K21.9 and Yeast infection B37.9 [facility] [address] [place] [address] 05/02/2024 Jessica zzzRonaldrray Diabetes mellitus ty pe 2, uncontrolled E11.65 ; Anxiety F41.9 ; Acute effusion of right ear H65.191 ; Acute cough R05.1 and Nicotine dependence, unspecified, uncomplicated F17.200 [facility] [address] [place] [address] 08/02/2024 Jessica zzzRonaldrray Diabetes mellitus ty pe 2, uncontrolled E11.65 ; Mild persistent asthma J45.30 ; GERD (gastroesophageal reflux disease) K21.9 ; Anxiety F41.9 ; Essential hypertension I10 ; Right carpal tunnel syndrome G56.01 and Nicotine dependence, unspecified, uncomplicated F17.200 [facility] [address] [place] [address] 10/03/2024 Jessica angieMurray Neuropathy G62.9 ; Allergic rhinitis J30.9 ; Essential hypertension I10 ; Depression F32.9 ; Mood disorder F39 ; Abdominal cramping R10.9 ; Pyelonephritis N12 and GERD (gastroesophageal reflux disease) K21.9 [facility] [address] [place] [address] 11/12/2024 Jessica Derekrray Diabetes mellitus ty pe 2, uncontrolled E11.65 ; Anxiety F41.9 ; Thrush B37.0 ; Yeast infection B37.9 ; Acute pain of right knee M25.561 ; Mood disorder F39 and Acute cough R05.1 [facility] [address] [place] [address] 08/15/2024 Jessica Castaneda Mood disorder F39 [facility] [address] [place] [address] 06/07/2024 Jessica Castaneda Exposure to COVID-19 virus Z20.822 ; Chest congestion R09.89 ; Mild persistent asthma J45.30 ; Neuropathy G62.9 and Nicotine dependence, unspecified, uncomplicated F17.200 Assessments Encounter Date Diagnosis (ICD Code) Assessment [...] with plan. 09/05/2024 Neuropathy (ICD-10 - G62.9) 08/02/2024 Diabetes mellitus type 2, uncontrolled (ICD-10 [...] current medication. F/U 3 months & PRN 08/09/2024 Neuropathy (ICD-10 - G62.9) 10/16/2024 Diabetes mellitus type 2, uncontrolled (ICD-10 - E11.65) 11/02/2024 Neuropathy (ICD-10 - G62.9) 10/03/2024 Neuropathy (ICD-10 - G62.9) OARRS report reviewed. Patient history consistent with prescribing. Refills provided today, 30 day supply. 11/12/2024 Diabetes mellitus type 2, uncontrolled (ICD-10 [...] GERD (gastroesophageal reflux disease) (ICD-10 - K21.9) 05/02/2024 Anxiety (ICD-10 - F41.9) Anxiety stable. Will continue current medication. F/U 3 months & PRN 05/02/2024 Diabetes mellitus type 2, uncontrolled (ICD-10 [...] Follow up in 2 months & PRN. 05/10/2024 Diabetes mellitus type 2, uncontrolled (ICD-10 - E11.65) 06/04/2024 Allergic rhinitis (ICD-10 - J30.9) 06/06/2024 Neuropathy (ICD-10 - G62.9) 06/07/2024 Chest congestion (ICD-10 - R09.89) Recommended humidifier/hot shower, Vicks rub, spoon full of honey, OTC cough medications PRN. Follow up if no improvement, monitor for wheezing, increased work of breathing, worsening shortness of breath. Verbalized understanding. 06/07/2024 Exposure to COVID-19 virus (ICD-10 - [...] of COVID. Pt verbalized understanding. F/u PRN 07/09/2024 Neuropathy (ICD-10 - G62.9) 07/16/2024 Diabetes mellitus type 2, uncontrolled (ICD-10 - E11.65) 06/07/2024 Mild persistent asthma (ICD-10 - J45.30) Will continue current medication. F/U 3 months & PRN 05/10/2024 Neuropathy (ICD-10 - G62.9) 06/06/2024 Mild persistent asthma (ICD-10 - J45.30) 05/02/2024 Acute effusion of right ear (ICD-10 - H65.191) Will treat with Cortisporin drops, follow up if no improvement. 01/08/2025 Yeast infection (ICD-10 - B37.9) 11/12/2024 Thrush (ICD-10 - B37.0) Exam consistent with oral thrush, will start Nystatin swish & swallow for 14 days. Discussed risks and side effects of medication. Follow up if no improvement. 11/12/2024 Anxiety (ICD-10 - F41.9) Again recommended [...] Patient verbalized understanding, in agreement with plan. 08/02/2024 GERD (gastroesophageal reflux disease) (ICD-10 - K21.9) GERD stable. Will continue current medications. F/u 3 months & PRN 10/03/2024 Allergic rhinitis (ICD-10 - J30.9) Take [...] intake and encouraged exercise. Pt verbalized understanding. 08/02/2024 Anxiety (ICD-10 - F41.9) Anxiety stable. Will continue current medication. F/U 3 months & PRN 11/12/2024 Yeast infection (ICD-10 - B37.9) Will [...] prescribing. Refills provided today, 30 day supply. 06/07/2024 Nicotine dependence, unspecified, uncomplicated (ICD-10 - F17.200) Quitting Tobacco: Care Instructions material was printed 05/02/2024 Nicotine dependence, unspecified, uncomplicated (ICD-10 - F17.200) Quitting Tobacco: Care Instructions material was published 10/03/2024 Depression (ICD-10 - F32.9) Again recommended [...] Patient verbalized understanding, in agreement with plan. 08/02/2024 Essential hypertension (ICD-10 - I10) Patient [...] return for toradol injection if needed. 10/03/2024 Mood disorder (ICD-10 - F39) Again [...] Patient verbalized understanding, in agreement with plan. 08/02/2024 Right carpal tunnel syndrome (ICD-10 - G56.01) Reviewed side effect profile of medications. Warned to take with food and monitor for bleeding. Do not take with other NSAIDs. Discussed risks with patients cardiac history. 10/03/2024 Abdominal cramping (ICD-10 - R10.9) Symptoms and UA consistent with pyelonephritis. Severe CVA tenderness on exam. Will start atb, encouraged patient to complete entire course. Discussed risks and side effects of medications. Push fluids. Patient verbalized understanding. Follow up if symptoms worsen or fail to improve. 08/02/2024 Nicotine dependence, unspecified, uncomplicated (ICD-10 - [...] [employer] [place] [employer] [address] [place] [address] [id number] BORA GARCÍA Self - patient is the insured 2 [employer] [address] [place] [address] [phone] [id number] BORA GARCÍA Self - patient is the insured 3 [employer] [address] [place] [phone] [id number] BORA GARCÍA Self - patient is the insured 9 3 zMEDICAID ABD after [employer] [address] [place] [phone] [id number] BORA GARCÍA Self - patient is the insured 9 3 zDENTAL DQ [employer] [address] [place] [phone] [id number] BORA GARCÍA Self - patient is the insured 0 [facility] Medicaid [address] [place] [address] [id number] BORA GARCÍA Self - patient is the [...]
--- OUTSIDE RECORDS SUMMARY | 2025-04-15 12:50 | XMS_ITS | Patient Health Record ---
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 Name Role Phone Linda Wood Primary Care Provider [phone] Allergies Allergen (clinical drug ingredient) Drug/Non Drug [...] Once a day for 90 days Active Lancets - check blood sugar once a day *whatever brand is covered by insurance 03/11/2025 Active Lancet Device with Ejector - as directed *whatever brand is covered by insurance 03/11/2025 Active Bacitracin 500 UNIT/GM 1 application Externally Once a day 03/11/2025 Active Pantoprazole Sodium 40 MG 1 tablet Orally twice a day for 90 days Active Spiriva [...] in 3-5 days if needed 01/28/2025 Active Gabapentin 600 MG 2 tablets Orally Three times a day for 90 days Active Social History Tobacco Use: Social History [...] 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 No How often do you see or talk to people that you care about and feel close to? (For example: talking to friends on the phone, visiting friends or family, going to latter day or club meetings) More than 5 times a week patient entered data How stressed are you? Stress is when someone feels tense, nervous, anxious, or can't sleep at night because their mind is troubled A little bit patient entered data In the past year have you sp ent more than 2 nights in a row in a nursing home, nursing home, longterm center, or juvenile correctional facility? No patient entered data Are you a refugee? No patient en tered data What country are you from? [place] entered data Do you feel physically and emotionally safe where you currently live? Yes patient entered data In the past year, have you b een afraid of your partner or ex-partner? No patient entered data PRAPARE Score: 5 Problems Problem Type SNOMED Code ICD Code Onset Dates Problem Status W/U Status Risk Notes Problem 787828938 Mixed hyperlipidemia (E78.2) Active confirmed Problem 01159903 Anxiety (F41.9) Active confirmed Problem Cigarette nicoti ne dependence without complication (F17.210) Active confirmed Problem 611822828 GERD without esophagitis (K21.9) Active confirmed Problem 091041503 Obesity, morbid, BMI 40.0-49.9 (E66.01) Active confirmed Problem 785489432 BMI 40.0-44.9, adult (Z68.41) Active confirmed Problem 753591250 Mild persistent asthma without complication (J45.30) Active confirmed Problem 824053681 Neuropathy (G62.9) Active confirmed Problem [id number] Type 2 diabetes mellitus with hyperglycemia, without long-term current use of insulin (E11.65) Active confirmed Problem 18798453 Congestive heart failure, unspecified (I50.9) Active confirmed Vital Signs Heart Rate 91 /min 01/28/2025 Oswald Jorge 01/28/2025 03:53:57 PM EDT > Temperature 98.0 degrees Fahrenheit 01/28/2025 Vald ovinos, Liborio 01/28/2025 03:53:57 PM EDT > Respiratory Rate 18 /min 01/28/2025 Jorge, Liborio 01/28/2025 03:53:57 PM EDT > Height-cm 161.29 [...] Location Date Provider Diagnosis Main [address] [place], [place] [id number] 01/28/2025 Linda Wood Type 2 diabetes skinny itus with hyperglycemia, without long-term current use of insulin E11.65 ; GERD without esophagitis K21.9 ; Neuropathy G62.9 ; Mild persistent asthma without complication J45.30 ; Mixed hyperlipidemia E78.2 ; Congestive heart failure, unspecified I50.9 ; Anxiety F41.9 ; Cigarette nicotine dependence without complication F17.210 ; BMI 40.0-44.9, adult Z68.41 and Obesity, morbid, BMI 40.0-49.9 E66.01 [place] [address] [place] [address] 01/29/2025 Lindaodessa Figueroamercedesnataliya Neuropathy G62.9 Main [address] [place], [place] [id number] 02/06/2025 Linda Nieveserholnataliya Main [address] [place] [id number] 02/11/2025 Linda Myerholnataliya Main [address] [facility] [place] [id number] 02/25/2025 Linda Myerholtz Main [address] [facility] [place] [id number] 03/04/2025 Linda Myerholtz Main [address] [facility] [place] [id number] 03/07/2025 Linda Nieveskarynnataliya Type 2 diabetes skinny itus with hyperglycemia, without long-term current use of insulin E11.65 Main [address] [facility] [place] [id number] 03/08/2025 Linda Figueroaholnataliya Main [address] [facility] [place] [id number] 03/11/2025 Linda Carolinaholnataliya Main [address] [place], [place] [id number] 03/15/2025 Linda Wood Main [address] [facility] [place] [id number] 04/08/2025 Linda Myerholtz Neuropathy G62.9 Assessments Encounter Date Diagnosis (ICD Code) Assessment Notes Treatment Notes Treatment Clinical Notes Section Notes 01/28/2025 GERD without esophagitis (ICD-10 - K21.9) [...] for diflucan. F/u 3 months & PRN 01/29/2025 Neuropathy (ICD-10 - G62.9) 03/07/2025 Type 2 diabetes mellitus with hyperglycemia, without long-term current use of insulin (ICD-10 - E11.65) 04/08/2025 Neuropathy (ICD-10 - G62.9) 01/28/2025 Neuropathy (ICD-10 - G62.9) Pt is [...] complication (ICD-10 - F17.210) Patient provided with [id number] phone line. 01/28/2025 BMI 40.0-44.9, adult (ICD-10 - Z68.41) Body Mass Index: Care Instructions material was printed 01/28/2025 Obesity, morbid, BMI 40.0-49.9 (ICD-10 - E66.01) Plan Of Treatment Next Appt Details Provider Name:Linda ramirez, 06/24/2025 02:00:00 PM, [address], [place], [id number], Insurance Providers Payer Name Payer Address Payer Phone Subscriber Number Group Number Insured Name Patient Relationship to Insured Coverage Start Date Coverage End Date [facility] [address] [place], [place] [id number] Lisbeth Castaneda Self - patient is the insured Medicaid CFC after [facility] [address] [place] [id number] Lisbeth Castaneda Self - patient is the [...]
--- NOTE | 2025-04-15 12:53 | CA_ITS ---
Patient Name: BORA GARCÍA MR#: [id number] : 1965 Exam Date: 04/15/2025 Ordering Doctor: DR RAMÓN RICHARD M.D. ECHOCARDIOGRAM REPORT PROCEDURE: CA ECHO DOPPLER COMPLETE INDICATIONS: Chronic systolic congestive heart failure COMPARISON: None. DESCRIPTION: COMPLETE ECHOCARDIOGRAM Real-time transthoracic echocardiography with 2D, M-mode, spectral and color flow Doppler performed. QUALITY: Technical quality was adequate. LEFT VENTRICLE: Normal chamber size. Mild concentric left ventricular hypertrophy. The septum is abnormal in motion likely due to bundle branch block. Systolic function is at the lower limits of normal. LV EF: Lower limits of normal left ventricular ejection fraction, (50%). DIASTOLIC: ATRIAL SEPTUM: LEFT ATRIUM: Normal chamber size. RIGHT ATRIUM: Mild dilatation. RIGHT VENTRICLE: Mild dilatation. Normal right ventricular systolic function. TRICUSPID VALVE: Normal mobility and thickness. No stenosis with trivial regurgitation. No evidence of pulmonary hypertension. RVSP 29 mmHg. MITRAL VALVE: Normal mobility and thickness. No evidence of mitral valve stenosis. There is no mitral annular calcification. Trivial mitral regurgitation. AORTIC VALVE: Normal trileaflet appearance. No visible sclerosis. Normal leaflet mobility. No evidence of aortic valve stenosis. No aortic regurgitation. AORTIC ROOT: Normal diameter and appearance, measuring 2.9 cm. The ascending aorta is normal in size measuring 2.7 cm. PULMONIC VALVE: Normal thickness and mobility. No stenosis. No regurgitation. PERICARDIUM: No evidence of pericardial effusion. IVC: Collapses with inspiration. Normal size. PLEURA: CONCLUSION: 1. Mild concentric left ventricular hypertrophy with low normal systolic function. LVEF is estimated at 50%. 2. Mildly dilated right ventricle with normal systolic function. 3. No significant valvular dysfunction. 4. Normal right-sided pressures. Adult Echocardiography Procedure Report Left Ventricle LVEDD (3.7 - 5.6 cm): 4.64 cm LVESD (2.2 - 4.0 cm): 3.38 cm LVIVS thickness (0.6 - 1.2 cm): 0.91 cm LVPW thickness (0.5 - 1.0 cm): 1.22 cm e': 0.10 m/s LVOT Max Gradient: 1.87 mm[Hg] LVOT Area (cm2): 0.68 m/s Peak Velocity (LVOT): 0.68 m/s Mean Velocity (LVOT): 0.46 m/s LVOT Diameter 2.27 cm Left Ventricular Ejection Fraction: 50 % Left Atrium LA Volume Index (2D A2C): 23.96 ml/m2 Left Atrium Systolic Dimension: 3.60 cm Mitral Valve Right Ventricle RV Internal Diastolic Dimension: 4.23 cm Aorta AO Root Diam: 2.87 cm Ascending Ao Diam: 2.74 cm Aortic Valve AoV Area (Peak Emiliano): 2.41 cm2, 2.41 cm2 AoV Area (VTI): 2.31 cm2, 2.31 cm2 Peak Velocity(Antegrade Flow): 1.15 m/s Peak Gradient(Antegrade Flow): 5.31 mm[Hg] Mean Velocity(Antegrade Flow): 0.80 m/s Mean Gradient(Antegrade Flow): 2.96 mm[Hg] Velocity Time Integral: 20.83 cm Tricuspid Valve Peak Velocity (Regurgitant Flow): 2.02 m/s, 2.20 m/s, 2.56 m/s Pulmonic Valve Mean Gradient: 1.49 mm[Hg] Mean Velocity: 0.57 m/s Peak Velocity: 0.81 m/s, 0.89 m/s Peak Gradient: 3.15 mm[Hg], 2.61 mm[Hg] Right Atrium Right Atrium Systolic Pressure: 70.14 ml, 70.14 ml Dictated by: Ramón Richard M.D. on 04/15/2025 at 18:40 Approved by: Ramón Richard M.D. on 04/15/2025 at 18:49
== END 2025-04-15 12:48 | disposition home or self-care (01) ==
LOC: CARD 12:47
PROVIDERS: Visit Provider Internal Medicine Interventional Cardiology
DX: I50.22 Chronic systolic (congestive) heart failure (principal)
CPT/HCPCS: 93306